=== PATIENT | female | born 1960 | race Caucasian/White ===

== ENCOUNTER 2016-11-21 15:40 | Observation (INO) | payer OTHER ==
[~2016-11-21] VITALS: Ht 160 cm; Wt 111.6 kg
[~2016-11-21 15:40] MED LIST: /MOXI40TA PO; ASPI325T PO; ASPI81TA85 PO; BABY81CH; LISI5TAB; METO50TA2 PO; NAPR250T; NICO21DI4; NICO21PAT EXT; NITR0.4S; OCEA0.65; OMEP20TA PO; OMEP40CA2 PO; PRED50TA PO; SIMV40TA2 PO; TYLE325T5 PO; VYTO10TA5 PO; ZETI10TA2 PO; [UNRECOGNIZED DRUG - CODE] PO; omeprazole PO
[2016-11-21] MEDS ORDERED: IPRATROPIUM 0.5MG/ALBUTEROL 2.5MG INH SOL UD 3ML (DUONEB)(J7620) As Ordered ONE (16:21)
[2016-11-21] MEDS ORDERED: methylPREDNISolone INJ 125 MG/2 ML VIAL (J2930) As Ordered ONE (16:34)
--- NOTE | 2016-11-21 16:37 | REP ---
Clinical: Cough . Comparison: 09/13/2015 . Technique: PA and lateral. Findings: The mediastinum and cardiac silhouette are normal. The lung salgado are clear and without acute consolidation, effusion, or pneumothorax. The skeletal structures are intact and normal. Impression: 1. No acute cardiopulmonary process. Signed by Manolo Higuera MD 11/21/2016 04:29 P
[2016-11-21] MEDS ORDERED: ALBUTEROL SULFATE 2.5 MG/0.5 ML INH NEB SOLN As Ordered ONE (16:45)
[2016-11-21 17:04] LABS: BASO % 0.6 % (0.0-1.0); EOS # 0.1 K/mm3 (0.0-0.50); EOS % 1.2 % (0.0-3.0); LARGE UNSTAINED CELL # 0.2 K/mm3 (0.0-0.4); LARGE UNSTAINED CELL % 2.9 % (0.0-4.0); LYMPH # 2.3 K/mm3 (1.5-4.5); LYMPH % 30.8 % (24.0-44.0); MEAN CORPUSCULAR HEMOGLOBIN 29.1 pg (27.0-33.0); MEAN CORPUSCULAR HGB CONC 33.9 g/dl (32.0-36.5); MONO # 0.4 K/mm3 (0.0-0.8); MONO % 6.3 % (0.0-5.0); NEUTROPHILS % 58.2 % (36.0-66.0); RED CELL DISTRIBUTION WIDTH 14.6 % (11.5-14.5); WHITE BLOOD COUNT 6.9 K/mm3 (4.0-10.0)
[2016-11-21 17:05] LABS: ANION GAP 10 MEQ/L (8-16); BLOOD UREA NITROGEN 10 MG/DL (7-18); CALCIUM LEVEL 8.9 MG/DL (8.5-10.1); CARBON DIOXIDE LEVEL 25 MEQ/L (21-32); CHLORIDE LEVEL 102 MEQ/L (98-107); CREATININE FOR GFR 0.79 MG/DL (0.55-1.02); GLOMERULAR FILTRATION RATE > 60.0 (>51); GLUCOSE, FASTING 104 MG/DL (70-105); POTASSIUM SERUM 3.4 MEQ/L (3.5-5.1); SODIUM LEVEL 137 MEQ/L (136-145)
[2016-11-21 17:36] LABS: PLATELET COUNT, AUTOMATED 49 k/mm3 (150-450)
[2016-11-21] MEDS ORDERED: TOPR50TA PO (18:08)
[2016-11-21] MEDS ORDERED: OMEP20CA3 PO (18:08)
[2016-11-21] MEDS ORDERED: BISACODYL 10 MG SUPP PR PRN (18:15)
[2016-11-21] MEDS ORDERED: ONDANSETRON 4MG/2ML VIAL (J2405) IV PRN (18:15)
[2016-11-21] MEDS ORDERED: POTASSIUM CHLORIDE 10 MEQ SR TABLET PO ONE (19:00)
[2016-11-21] MEDS ORDERED: FUROSEMIDE 40 MG/4 ML VIAL (J1940) IV ONE (19:00)
--- NOTE | 2016-11-21 19:47 | HPE ---
DATE OF ADMISSION: 11/21/2016 PRIMARY CARE PROVIDER: Nj Huff CHIEF COMPLAINT: Increasing shortness of breath for 1 week with coughing. PAST MEDICAL HISTORY: Chronic obstructive pulmonary disease (COPD). Coronary artery disease, status post stent. Mitral regurgitation. Left ventricular diastolic dysfunction. Obesity. Obstructive sleep apnea. Gastroesophageal reflux disease (GERD). Hyperlipidemia. HISTORY OF THE PRESENT ILLNESS: This is a 56-year-old female who has been off and on sick for the past 1 month. She started with cold-like symptoms on 10/16/2016 and was diagnosed with COPD exacerbation, received a week's treatment with steroids and Levaquin, improved a little bit. However, her symptoms came back again, went to see her blackener a second time and was given another course of levofloxacin and steroids, which she finished 2 weeks ago. She did improve for a few days; however, for the past week, the patient has been having worsening symptoms with increasing shortness of breath, cough, mostly dry and increasing difficulty in ambulation, so came to the emergency room for evaluation. In the emergency department (ED), the patient was treated with DuoNeb nebulizer, prednisone, Solu-Medrol. With that, her breathing seemed to improve, and she was ambulated. However, on ambulation, she became extremely tachycardic 130s to 140s and desaturated to 89% in room air, so the hospitalist service was consulted for admission for hypoxia and COPD exacerbation. PAST SURGICAL HISTORY: Sinus surgery. Knee surgery. Cardiac stents in 2008 with greater than 80% blockage. Bilateral foot surgeries. ALLERGIES: PENICILLIN. HOME MEDICATIONS: - aspirin 81 mg daily - Zetia 10 mg at bedtime - metoprolol succinate 50 mg at bedtime - omeprazole 20 mg at bedtime - simvastatin 40 mg at bedtime SOCIAL HISTORY: The patient is a currently every day smoker. Does not abuse alcohol or recreational drugs. REVIEW OF SYSTEMS: The patient denied any fever or chills. Does complain of palpitations. Denied any chest pain. Does complain of shortness of breath. Denied any gain in weight. Denied any abdominal pain, nausea, vomiting or diarrhea. She does have a dry cough. She does complain of some leg swelling. PHYSICAL EXAMINATION: VITAL SIGNS: Blood pressure 142/89, pulse 140, respiratory rate 18, temperature 99.2, pulse oximetry 89% in room air. GENERAL: The patient is awake, alert, oriented times three, sitting up in bed in no acute distress. HEENT: Normocephalic, atraumatic. Moist mucous membranes. Anicteric eyes. CHEST: Clear to auscultation. Overall poor air entry and distant breath sounds. CARDIOVASCULAR: S1, S2, regular, tachycardic. There is a high pitch systolic murmur present. There is gallop heard. No rub. ABDOMEN: Obese, soft, nontender. Bowel sounds present. EXTREMITIES: 1+ bipedal edema. LABORATORY DATA: WBC 6.9, hemoglobin 14, platelets 49. Sodium 137, potassium 3.4, chloride 102, bicarbonate 25, BUN 10, creatinine 0.7, glucose 104, calcium 8.9. Chest x-ray: No acute cardiopulmonary process. ASSESSMENT: This is a 56-year-old female admitted for chronic obstructive pulmonary disease (COPD) exacerbation. PLAN: For COPD exacerbation, will continue the patient on albuterol and ipratropium nebulizers. Will continue the patient on methylprednisolone. Will not give antibiotics at this point. The patient already received two courses of antibiotics recently and chest x-ray does not show any signs of infection. Mitral regurgitation. The patient has mild fluid overload. Will start the patient on Lasix IV 40 mg daily. Diastolic dysfunction, possible diastolic congestive heart failure. Will put the patient on Lasix and evaluate, and daily weights and intake and output. Coronary artery disease with history of cardiac stents. Will continue with beta heavenly, statin. Hyperlipidemia. Will continue with simvastatin and Zetia. Gastroesophageal reflux disease (GERD). Will continue with omeprazole. Deep vein thrombosis (DVT) prophylaxis with thromboembolism deterrents (TEDs) and sequentials. Will not use heparin as the patient is thrombocytopenic. Thrombocytopenia. Possibly related to antibiotics. The patient was taking levofloxacin over the past month, had two courses. Morbid obesity and obstructive sleep apnea (MELANY). Will continue with home continuous positive airway pressure (CPAP).
[2016-11-21] MEDS: BUDESONIDE 0.5 MG/2 ML INHALATION SUSPENSION INH SCH (20:00)
--- NOTE | 2016-11-21 20:03 | EDDOCDS ---
Physician Documentation [facility] Name: Neelam Cloud Age: 56 yrs Sex: Female : 1960 Arrival Date: 11/21/2016 Time: 15:40 Bed I7 / 29 Private MD: [place] [place] Disposition: 11/21/16 17:58 Hospitalization ordered by Macarena Bowen for Inpatient Admission. Preliminary diagnosis is Chronic obstructive pulmonary disease with (acute) exacerbation. - Bed requested for 4 [place]. - Status is Inpatient Admission. nn1 - Condition is Stable. - Problem is new. - Symptoms are unchanged. Historical: - Allergies: PENICILLINS; - Home Meds: 1. omeprazole 20 mg Oral cpDR 1 cap once daily 2. simvastatin 40 mg Oral tab 1 tab once daily 3. Zetia 10 mg Oral tab 1 tab once daily 4. aspirin 81 mg Oral tab 1 tab once daily 5. metoprolol tartrate 50 mg Oral tab 1 tab daily - PMHx: Depression; GERD; Hypercholesterolemia; Hypertension; [place]; COPD; - PSHx: D & C; Sinus Surgery; Knee surgery- Left; Coronary Stents; - Social history: Smoking status: Patient uses tobacco products, current every day smoker. No barriers to communication noted, The patient speaks fluent Divehi, Speaks appropriately for age. - Family history: No immediate family members are acutely ill. - : The pt / caregiver states he / she is not on anticoagulants. Home medication list is obtained from the patient. - Exposure Risk Screening:: None identified. ADMINISTRATIVE LIBRARY ASSISTANT: 11/21 15:50 LMP N/A - Post-menopause srm Vital Signs: 15:42 BP 142 / 89; Pulse 107; Resp 18 S; Temp 99.2(O); Pulse Ox 95% on R/A; Weight 108.86 kg gr2 / 240 lbs (R); Height 5 ft. 5 in. (165.10 cm) (R); Pain 2/10; 17:49 Pulse 140; Pulse Ox 89% ; jam1 18:10 BP 140 / 76; Pulse 128; Resp 20; Pulse Ox 90% on R/A; jjr 19:57 BP 122 / 70; Pulse 120; Resp 20; Temp 96.6(TE); Pulse Ox 93% on 2 lpm NC; nn1 15:42 Body Mass Index 39.94 (108.86 kg, 165.10 cm) gr2 18:10 2 liters NC applied jjr MDM: 16:19 -Blood Culture (Adults Only), peripheral from different site, or from device/port/PICC ck7 etc. if present ordered. 16:19 IV Saline Lock ordered. ck7 16:19 Solu-MEDROL 125 mg IVP once ordered. ck7 16:19 Albuterol-Ipratropium 3 ml Inhalation once ordered. ck7 16:19 Call Respiratory ordered. ck7 16:19 Obtain sample by nasopharyngeal swab ordered. ck7 16:20 CBC with Diff Ordered. EDMS 16:20 MED Profile Ordered. EDMS 16:20 -Influenza A&B Rapid Antigen - Nose Ordered. EDMS 16:21 Chest, 2 View (pa\E\lat) Ordered. EDMS 16:21 Call Respiratory complete. rs6 16:22 -Blood Culture (Adults Only), peripheral from different site, or from device/port/PICC rs6 etc. if present complete. 16:25 BLOOD CULTURES Ordered. EDMS 16:27 BLOOD CULTURES Ordered. EDMS 16:45 Albuterol 2.5 mg Nebulizer once x2 ordered. ck7 16:46 Financial registration complete. kf3 16:51 Chest, 2 View (pa\E\lat) Reviewed. ck7 17:26 [facility] Payment Agreement was scanned into [employer] and attached to record. kf3 17:41 CBC with Diff Reviewed. ck7 17:41 MED Profile Reviewed. ck7 17:41 -Influenza A&B Rapid Antigen - Nose Reviewed. ck7 17:43 Ambulate Patient [facility] Pulse Oximetry ordered. ck7 17:50 BED REQUEST+ADM ordered. EDMS 17:59 Recheck Vital Signs, perform reassessment and enter into [employer] ordered. ck7 18:07 Admission / Observation Status ordered. EDMS 18:07 REGULAR DIET ordered. EDMS 18:53 BRAIN NATIURETIC PEPTIDE Ordered. EDMS 18:58 ECG WITH READING ER PHYS+CARDIAG ordered. EDMS Administered Medications: 16:30 Drug: Albuterol-Ipratropium 3 ml [ipratropium-albuterol 0.5 mg-3 mg(2.5 mg base)/3 mL ac1 nebulization soln (3 mL)] Route: Inhalation; 16:38 Follow up: bs clear upper lobes, diminished lower lobes before tx. bs after tx, clear ac1 upper lobes, diminished lower lobes. 17:13 Follow up: bs clear bilat ac1 16:38 Drug: Solu-MEDROL 125 mg [Solu-Medrol 500 mg intravenous solution (125 mg)] Route: IVP; jjr Site: right antecubital; 16:48 Drug: Albuterol 2.5 mg [albuterol sulfate 2.5 mg/0.5 mL solution for nebulization (0.5 ac1 mL)] Route: Nebulizer; 16:54 Drug: Albuterol 2.5 mg [albuterol sulfate 2.5 mg/0.5 mL solution for nebulization (0.5 ac1 mL)] Route: Nebulizer; 16:54 Follow up: bs clear bilat before and after tx. ac1 Signatures: Dispatcher [employer] EDMS Jill Solitario, RN RN srm Fiddler, Didier, Reg Reg kf3 Flaca Hayward RN RN jjr Wang Brown, RPA-C RPA-Cck7 Katerin Washington, ACCOUNTS PAYABLE REPRESENTATIVE ACCOUNTS PAYABLE REPRESENTATIVE rs6 Isaac Graves,LAUREN RN nn1 Gorge Price, RN LAUREN Culver, Dalia RT ac1 The chart was reviewed and I authenticate all verbal orders and agree with the evaluation and treatment provided.Corrections: (The following items were deleted from the chart) 17:09 16:20 -BLOOD CULTURES+JULIA ordered. EDMS EDMS 18:36 15:50 Home Meds: Toprol XL 50 mg Oral Tb24 1 tab once daily; srm jjr Attachments: 17:26 [facility] Payment Agreement kf3 MTDD
--- NOTE | 2016-11-21 20:03 | EDDOCDS ---
Nurse's Notes [facility] Name: Neelam Cloud Age: 56 yrs Sex: Female : 1960 Arrival Date: 11/21/2016 Time: 15:40 Bed I7 / 29 Private MD: RISHI Mauro Diagnosis: Chronic obstructive pulmonary disease with (acute) exacerbation Presentation: 11/21 15:45 Presenting complaint: Patient states: sick since oct 16- has had 2 rounds antibiotic srm and prednisone and not getting any better. pt able to speak full sentence. coughing a lot and dizzy with a cough. Adult Sepsis Screening: The patient does not have new or worsening altered mentation. Patient's respiratory rate is less than 22. Systolic blood pressure is greater than 100. Patient has a qSOFA score of 0- Negative Sepsis Screen. Suicide/Homicide risk assessment- the patient denies having any suicidal and/or homicidal ideations and does not present with any other emotional, behavioral or mental health complaints. Status: has insurance- retired. Transition of care: patient was not received from another setting of care. 15:45 Acuity: ORALIA Level 3 srm 15:45 Method Of Arrival: Walkin/Carried/Asstd srm Triage Assessment: 15:50 General: Appears in no apparent distress, Behavior is appropriate for age, cooperative. srm Pain: Pain currently is 5 out of 10 on a pain scale. HIV screening NA for this visit Offered previously. Respiratory: Onset: The symptoms/episode began/occurred gradually. LAB NURSE: 15:50 LMP N/A - Post-menopause srm Historical: - Allergies: PENICILLINS; - Home Meds: 1. omeprazole 20 mg Oral cpDR 1 cap once daily 2. simvastatin 40 mg Oral tab 1 tab once daily 3. Zetia 10 mg Oral tab 1 tab once daily 4. aspirin 81 mg Oral tab 1 tab once daily 5. metoprolol tartrate 50 mg Oral tab 1 tab daily - PMHx: Depression; GERD; Hypercholesterolemia; Hypertension; [place]; COPD; - PSHx: D & C; Sinus Surgery; Knee surgery- Left; Coronary Stents; - Social history: Smoking status: Patient uses tobacco products, current every day smoker. No barriers to communication noted, The patient speaks fluent Macedonian, Speaks appropriately for age. - Family history: No immediate family members are acutely ill. - : The pt / caregiver states he / she is not on anticoagulants. Home medication list is obtained from the patient. - Exposure Risk Screening:: None identified. Screenin:51 Screening information is obtained from the patient. Fall risk: No risks identified. jjr Assistance ADL's: requires no assistance with activities of daily living. Abuse/DV Screen: The patient / caregiver reports he/she is: not in a situation that causes fear, pain or injury. Nutritional screening: No deficits noted. Advance Directives: There is no active DNR order. home support is adequate. Assessment: 16:50 General: Appears in no apparent distress, well nourished, well groomed, Behavior is jjr appropriate for age. Pain: Location: left scapular area and right scapular area. Cardiovascular: Chest pain is denied. Respiratory: Airway is patent Respiratory effort is even, unlabored, Respiratory pattern is regular, Breath sounds with rhonchi bilaterally. Reports cough that is persistent. Derm: No deficits noted. 18:10 General: Appears in no apparent distress. Neurological: No deficits noted. Respiratory: jjr Airway is patent Respiratory effort is even, unlabored, Respiratory pattern is regular. Derm: No deficits noted. 19:50 General: Appears in no apparent distress, comfortable, Behavior is appropriate for age, nn1 cooperative. General: Patient denies pain, reports discomfort when lying down due to SOB. Patient in no respiratory distress at this time. . Pain: Denies pain. Neurological: No deficits noted. Respiratory: Airway is patent Respiratory effort is even, unlabored, Respiratory pattern is regular. Derm: Skin is pink, warm & dry. 19:51 General: Patient ate dinner. . Cardiovascular: Rhythm is sinus tachycardia No ectopy. nn1 Vital Signs: 15:42 BP 142 / 89; Pulse 107; Resp 18 S; Temp 99.2(O); Pulse Ox 95% on R/A; Weight 108.86 kg gr2 (R); Height 5 ft. 5 in. (165.10 cm) (R); Pain 2/10; 17:49 Pulse 140; Pulse Ox 89% ; jam1 18:10 BP 140 / 76; Pulse 128; Resp 20; Pulse Ox 90% on R/A; jjr 19:57 BP 122 / 70; Pulse 120; Resp 20; Temp 96.6(TE); Pulse Ox 93% on 2 lpm NC; nn1 15:42 Body Mass Index 39.94 (108.86 kg, 165.10 cm) gr2 18:10 2 liters NC applied jr Vitals: 15:42 Log In Time: November 21, 2016 at 15:42. RN notified that patient meets Red Flag gr2 criteria. ED Course: 15:41 Patient visited by Lorri aHyward. gr2 15:41 Patient moved to Waiting gr2 15:42 [facility] is Private Physician. gr2 15:45 Patient visited by Lrori Hayward. gr2 15:46 Triage Initiated srm 15:51 Patient moved to Triage 2 srm 16:04 Wagn Brown R[facility]-C [facility] ck7 16:04 Bronson Clemens MD is Attending Physician. ck7 16:04 Patient visited by Wang Brown RPA-C. ck7 16:20 Patient moved to I srm 16:35 Patient visited by Wang Brown RPA-C. ck7 16:36 BLOOD CULTURES Sent. mk4 16:36 -Influenza A&B Rapid Antigen - Nose Sent. mk4 16:37 MED Profile Sent. mk4 16:37 CBC with Diff Sent. mk4 16:37 Inserted saline lock: 20 gauge in left antecubital area and blood collected. mk4 16:47 Chest, 2 View (pa\E\lat) Returned. EDMS 16:51 Patient visited by Flaca Hayward RN. jjr 16:51 The patient / caregiver is instructed regarding the plan of care and ED course. jjr 17:26 [facility] [place] Payment Agreement was scanned into [employer] and attached to record. kf3 17:31 Patient visited by Wang Brown RPA-C. ck7 17:57 Macarena Bowen is Hospitalizing Provider. ck7 18:10 Patient visited by Flaca Hayward RN. jjr 19:07 EKG done. (by ED staff). Reviewed by Macarena Bowen. mdr 19:08 Patient visited by Víctor Molina PCA. mdr 19:52 No procedures done that require assistance. nn1 19:52 O2 via nasal cannula \T\ 2L/min. nn1 Administered Medications: 16:30 Drug: Albuterol-Ipratropium 3 ml [ipratropium-albuterol 0.5 mg-3 mg(2.5 mg base)/3 mL ac1 nebulization soln (3 mL)] Route: Inhalation; 16:38 Follow up: bs clear upper lobes, diminished lower lobes before tx. bs after tx, clear ac1 upper lobes, diminished lower lobes. 17:13 Follow up: bs clear bilat ac1 16:38 Drug: Solu-MEDROL 125 mg [Solu-Medrol 500 mg intravenous solution (125 mg)] Route: IVP; jjr Site: right antecubital; 16:48 Drug: Albuterol 2.5 mg [albuterol sulfate 2.5 mg/0.5 mL solution for nebulization (0.5 ac1 mL)] Route: Nebulizer; 16:54 Drug: Albuterol 2.5 mg [albuterol sulfate 2.5 mg/0.5 mL solution for nebulization (0.5 ac1 mL)] Route: Nebulizer; 16:54 Follow up: bs clear bilat before and after tx. ac1 Intake: RT: 16:39 Initial Med Neb Given as ordered. Respiratory: Breath sounds are clear bilaterally. in ac1 right upper lobe, left upper lobe, left posterior upper lobe and right posterior upper lobe. Respiratory: Breath sounds are clear bilaterally. in right upper lobe, left upper lobe, left posterior upper lobe and right posterior upper lobe. 16:40 Respiratory: Breath sounds are diminished bilaterally. in right middle lobe, left lower ac1 lobe, right lower lobe, left posterior lower lobe, right posterior middle lobe and right posterior lower lobe. 16:48 Subsequent Med Neb Given as ordered. ac1 16:49 Respiratory: Breath sounds are coarse bilaterally. ac1 16:55 Subsequent Med Neb Given as ordered. ac1 17:17 Respiratory: Breath sounds are clear bilaterally. ac1 Order Results: Lab Order: CBC with Diff; SPEC'M 11/21/16 16:33 Test: WHITE BLOOD COUNT; Value: 6.9; Range: 4.0-10.0; Units: K/mm3; Status: F Test: RED BLOOD COUNT; Value: 4.81; Range: 4.00-5.40; Units: M/mm3; Status: F Test: HEMOGLOBIN; Value: 14.0; Range: 12.0-16.0; Units: g/dl; Status: F Test: HEMATOCRIT; Value: 41.4; Range: 36.0-47.0; Units: %; Status: F Test: MEAN CORPUSCULAR VOLUME; Value: 86.0; Range: 80.0-96.0; Units: fl; Status: F Test: MEAN CORPUSCULAR HEMOGLOBIN; Value: 29.1; Range: 27.0-33.0; Units: pg; Status: F Test: MEAN CORPUSCULAR HGB CONC; Value: 33.9; Range: 32.0-36.5; Units: g/dl; Status: F Test: RED CELL DISTRIBUTION WIDTH; Value: 14.6; Range: 11.5-14.5; Abnormal: Above high normal; Units: %; Status: F Test: PLATELET COUNT, AUTOMATED; Value: 49; Range: 150-450; Abnormal: Below low normal; Units: k/mm3; Status: F Test: NEUTROPHILS %; Value: 58.2; Range: 36.0-66.0; Units: %; Status: F Test: LYMPH %; Value: 30.8; Range: 24.0-44.0; Units: %; Status: F Test: MONO %; Value: 6.3; Range: 0.0-5.0; Abnormal: Above high normal; Units: %; Status: F Test: EOS %; Value: 1.2; Range: 0.0-3.0; Units: %; Status: F Test: BASO %; Value: 0.6; Range: 0.0-1.0; Units: %; Status: F Test: LARGE UNSTAINED CELL %; Value: 2.9; Range: 0.0-4.0; Units: %; Status: F Test: NEUTROPHILS #; Value: 4.0; Range: 1.8-7.7; Units: K/mm3; Status: F Test: LYMPH #; Value: 2.3; Range: 1.5-4.5; Units: K/mm3; Status: F Test: MONO #; Value: 0.4; Range: 0.0-0.8; Units: K/mm3; Status: F Test: EOS #; Value: 0.1; Range: 0.0-0.50; Units: K/mm3; Status: F Test: BASO #; Value: 0.0; Range: 0.0-0.2; Units: K/mm3; Status: F Test: LARGE UNSTAINED CELL #; Value: 0.2; Range: 0.0-0.4; Units: K/mm3; Status: F Lab Order: MED Profile; SPEC'M 11/21/16 16:33 Test: GLUCOSE, FASTING; Value: 104; Range: 70-105; Units: MG/DL; Status: F Test: BLOOD UREA NITROGEN; Value: 10; Range: 7-18; Units: MG/DL; Status: F Test: CREATININE FOR GFR; Value: 0.79; Range: 0.55-1.02; Units: MG/DL; Status: F Test: GLOMERULAR FILTRATION RATE; Value: > 60.0; Range: >51; Status: F Test: SODIUM LEVEL; Value: 137; Range: 136-145; Units: MEQ/L; Status: F Test: POTASSIUM SERUM; Value: 3.4; Range: 3.5-5.1; Abnormal: Below low normal; Units: MEQ/L; Status: F Test: CHLORIDE LEVEL; Value: 102; Range: 98-107; Units: MEQ/L; Status: F Test: CARBON DIOXIDE LEVEL; Value: 25; Range: 21-32; Units: MEQ/L; Status: F Test: ANION GAP; Value: 10; Range: 8-16; Units: MEQ/L; Status: F Test: CALCIUM LEVEL; Value: 8.9; Range: 8.5-10.1; Units: MG/DL; Status: F Test Note: ; Units are mL/min/1.73 m2 Chronic Kidney Disease Staging per NKF: Stage I & II GFR >=60 Normal to Mildly Decreased Stage III GFR 30-59 Moderately Decreased Stage IV GFR 15-29 Severely Decreased Stage V GFR <15 Very Little GFR Left ESRD GFR <15 on HAND COMPOSITOR Lab Order: -Influenza A&B Rapid Antigen - Nose; SPEC'M 11/21/16 16:33 Test: INFLUENZA A RAPID SCR by ICA; Value: INFLUENZA A RESULTS NEGATIVE; Status: F Test: INFLUENZA A RAPID SCR by ICA; Value: Comments:; Status: F Test: INFLUENZA B RAPID SCR by ICA; Value: INFLUENZA B RESULTS NEGATIVE; Status: F Test Note: ; The Influenza test is a direct rapid immunoassay for the qualitative detection of Influenza viral antigen. Cell culture (Viral Culture) testing should be considered to confirm NEGATIVE results and to assist in detecting other viruses that can provide similar clinical symptoms. Please contact the lab within 24 hours ([phone]) if confirmatory testing is desired. Lab Order: BRAIN NATIURETIC PEPTIDE; SPEC'M 11/21/16 18:51 Test: BRAIN NATRIURETIC PEPTIDE; Value: 225; Range: <100; Abnormal: Above high normal; Units: PG/ML; Status: F Radiology Order: Chest, 2 View (pa\E\lat) Test: Chest, 2 View (pa\E\lat) REASON FOR EXAMINATION: Cough; Clinical: Cough .; ; Comparison: 09/13/2015 .; ; Technique: PA and lateral.; ; Findings:; The mediastinum and cardiac silhouette are normal. The lung salgado are clear and; without acute consolidation, effusion, or pneumothorax. The skeletal structures; are intact and normal.; ; Impression:; 1. No acute cardiopulmonary process.; ; ; Signed by; Manolo Higuera MD 11/21/2016 04:29 P; Outcome: 17:58 Decision to Hospitalize by Provider. ck7 19:43 Admission hand-off: Report Faxed Fax receipt verified by Genna Licona RN . nn1 19:52 Discharge Assessment: Patient awake, alert and oriented x 3. No cognitive and/or nn1 functional deficits noted. Patient verbalized understanding of disposition instructions. patient administered narcotics - no. The following High Risk Discharge criteria are identified: None. Admitted to Med/Surg accompanied by tech, family with patient, via stretcher, with oxygen, with chart. Condition: stable. No special radiology studies were completed. Property :Personal belongings accompany Pt. 20:02 Patient left the ED. nn1 Signatures: Dispatcher [employer] EDMS Jill Solitario, RN RN Kaia Hardin, WILFREDO ELECTRO TECH jam1 Dalia Culver,RT RT ac1 Didier Grimes, Reg Reg kf3 Flaca Hayward, LAUREN RN Wang Layne, RPA-C RPA-Cck7 Lorri Hayward gr2 Fidelia Anderson RN RN mk4 Nunez, Nikkole, RN RN nn1 Víctor Molina PCA ELECTRO TECH mdr Corrections: (The following items were deleted from the chart) 18:36 15:50 Home Meds: Toprol XL 50 mg Oral Tb24 1 tab once daily; srm jjr MTDD
[2016-11-21 20:05] VITALS: BP 146/79
[2016-11-21] MEDS: METOPROLOL SUCC (TopROL XL) 50MG **XL** TAB PO SCH (20:40)
[2016-11-21] MEDS: OMEPRAZOLE 20 MG CAP PO SCH (20:40)
[2016-11-21] MEDS: SIMVASTATIN 40 MG TAB PO SCH (20:41)
[2016-11-21] MEDS: EZETIMIBE 10 MG TAB (ZETIA) PO SCH (20:41)
[2016-11-21] MEDS: SENOKOT S TAB PO SCH (20:41)
[2016-11-21] MEDS ORDERED: ASPIRIN 81 MG ENTERIC TAB PO SCH (21:00)
[2016-11-21] MEDS: IPRATROPIUM 0.5MG/ALBUTEROL 2.5MG INH SOL UD 3ML (DUONEB)(J7620) NEB SCH (21:05)
[2016-11-21 22:00] VITALS: BP 137/69
[2016-11-21] MEDS: methylPREDNISolone INJ 40 MG/1 ML VIAL (J2920) IV SCH (22:47)
[2016-11-22] MEDS: IPRATROPIUM 0.5MG/ALBUTEROL 2.5MG INH SOL UD 3ML (DUONEB)(J7620) NEB SCH ×4 (01:41→20:00)
[2016-11-22] MEDS: methylPREDNISolone INJ 40 MG/1 ML VIAL (J2920) IV SCH ×4 (03:34→21:32)
[2016-11-22 06:00] VITALS: BP 126/65
[2016-11-22 08:20] LABS: ALKALINE PHOSPHATASE 52 U/L (45-117); ALT/SGPT 36 U/L (12-78); ANION GAP 11 MEQ/L (8-16); AST/SGOT 21 U/L (15-37); BILIRUBIN,TOTAL 0.6 MG/DL (0.2-1.0); BLOOD UREA NITROGEN 12 MG/DL (7-18); CALCIUM LEVEL 8.4 MG/DL (8.5-10.1); CARBON DIOXIDE LEVEL 23 MEQ/L (21-32); CHLORIDE LEVEL 105 MEQ/L (98-107); CREATININE FOR GFR 0.86 MG/DL (0.55-1.02); GLOMERULAR FILTRATION RATE > 60.0 (>51); GLUCOSE, FASTING 180 MG/DL (70-105); MAGNESIUM LEVEL 2.2 MG/DL (1.8-2.4); POTASSIUM SERUM 4.2 MEQ/L (3.5-5.1); SODIUM LEVEL 139 MEQ/L (136-145); TOTAL PROTEIN 7.3 GM/DL (6.4-8.2)
[2016-11-22 08:29] LABS: MEAN CORPUSCULAR HEMOGLOBIN 28.7 pg (27.0-33.0); MEAN CORPUSCULAR VOLUME 86.9 fl (80.0-96.0); RED CELL DISTRIBUTION WIDTH 14.4 % (11.5-14.5)
[2016-11-22] MEDS: BUDESONIDE 0.5 MG/2 ML INHALATION SUSPENSION INH SCH ×2 (08:36→20:00)
[2016-11-22] MEDS: SENOKOT S TAB PO SCH ×2 (09:04→21:31)
[2016-11-22] MEDS: FUROSEMIDE 40 MG/4 ML VIAL (J1940) IV SCH (09:04)
[2016-11-22 09:42] LABS: PLATELET COUNT, AUTOMATED 55 k/mm3 (150-450)
[2016-11-22 09:43] LABS: PLTBLUE- EDTA FREE CALC 26 K/mm3 (172-450); PLTBLUE- EDTA FREE MACHINE 24 k/mm3 (172-450)
[2016-11-22 09:45] VITALS: BP 139/75
[2016-11-22 09:47] LABS: REASON FOR REVIEW PLATELET MORPHOLOGY
[2016-11-22 12:00] VITALS: BP 119/69
--- NOTE | 2016-11-22 13:28 | IPNPDOC ---
Date Seen The patient was seen on 11/22/16. Progress Note SUBJECTIVE: The patient tells me she is feeling better her breathing is more at ease she denies chest pain but she does describe some mild chest pressure tells me associated with sweating and episodes of lightheadedness with exertion. Of note she also tells me that her symptoms briefly improved over the last several weeks when she was on steroids and antibiotics we'll quickly recurred when they were discontinued. OBJECTIVE PHYSICAL EXAMINATION: VITAL SIGNS: Please see below. GENERAL: [She is a pleasant middle-aged obese female sitting on the edge of bed she does not appear to be any acute distress] HEENT: Pupils are equally round and reactive to light she has moist mucous membranes no appreciable elevation CVP CARDIOVASCULAR: S1-S2 regular. RESPIRATORY: Fairly clear at this time no appreciable wheeze prolonged expiratory phase but good air movement. ABDOMINAL: Obese bowel sounds present abdomen soft EXTREMITIES: Trace edema no clubbing or cyanosis LABORATORY DATA: Please see below. MICROBIOLOGY: Please see below. IMAGING: [No acute cardiopulmonary process] DVT prophylaxis ordered?: [I will start her on teds and sequentials no pharmacological agents secondary to thrombocytopenia] ASSESSMENT AND PLAN: This is a 56-year-old female with dyspnea. PROBLEMS: 1. dyspnea: The patient has been admitted with concern for decub stage COPD the patient follows Dr. Solano she has had several exacerbations and had 2 courses of Levaquin as well as prednisone tapers over the last several she is 2 months his symptoms briefly if briefly improved but then recurred her symptoms are associated with exertion she does associate some chest pressure diaphoresis at this time the patient is on nebulizer treatments she is mildly tachycardic switch her from DuoNeb to Xopenex and ipratropium, she is also on IV Solu- Medrol as well as Pulmicort. She does appear to be improving at this time. 2. Coronary artery disease: Patient tells me that she's had a cardiac cath in 2013 which was essentially unremarkable she was recently seen by Dr. Good for palpitations she recently had a stress test and a full evaluation at their office she tells me. Given her cardiac history of concern that her dyspnea on exertion may also have a anginal component of trace edema I will check an echocardiogram and we'll check a troponin if it does return positive for transfer to the progressive care unit consult cardiology and order an echocardiogram. She does appear to be mildly hypervolemic is start her on IV Lasix we'll continue. The patient is normally on aspirin but held secondary to fracture her thrombocytopenia she is on a statin and beta heavenly. 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 Dyslipidemia: Is on a statin as well as zetia. 4. Thrombocytopenia: The patient has is chronically however appears be more pronounced at this time I'll check a peripheral smear as well as an EDTA free tube given she has been on multiple courses of fluoroquinolones I agree with this may be secondary to her antibiotic use at this time I agree and see no indication for antibiotics we'll continue to trend her platelets there is no evidence of active bleeding at this time DISPOSITION: [We'll continue to monitor closely the patient still has an O2 requirement which she normally does not have at home at her baseline]. VS, I&O, 24H, Fishbone Vital Signs/I&O Vital Signs Date Time Temp Pulse Resp B/P Pulse Ox O2 Delivery O2 Flow Rate FiO2 11/22/16 12:00 97.2 91 18 119/69 92 Nasal Cannula 2.0 I&O- Last 24 Hours up to 6 AM 11/22/16 06:00 Intake Total 360 ml Output Total 2400 ml Balance -2040 ml Laboratory Data 24H LABS Laboratory Tests 2 11/21/16 16:33: Anion Gap 10, White Blood Count 6.9, Red Blood Count 4.81, Hemoglobin 14.0, Hematocrit 41.4, Mean Corpuscular Volume 86.0, Mean Corpuscular Hemoglobin 29.1 , Mean Corpuscular Hemoglobin Concent 33.9, Red Cell Distribution Width 14.6H, Platelet Count 49L, Neutrophils (%) (Auto) 58.2, Lymphocytes (%) (Auto) 30.8, Monocytes (%) (Auto) 6.3H, Eosinophils (%) (Auto) 1.2, Basophils (%) (Auto) 0.6 , Neutrophils # (Auto) 4.0, Lymphocytes # (Auto) 2.3, Monocytes # (Auto) 0.4, Eosinophils # (Auto) 0.1, Basophils # (Auto) 0.0, Blood Urea Nitrogen 10, Creatinine 0.79, Sodium Level 137, Potassium Level 3.4L, Chloride Level 102, Carbon Dioxide Level 25, Calcium Level 8.9, Glomerular Filtration Rate > 60.0, Large Unclassified Cells # 0.2, Large Unclassified Cells % 2.9 11/21/16 18:51: B-Type Natriuretic Peptide 225H 11/22/16 07:31: Platelet Count, EDTA Free 26*L 11/22/16 07:35: Anion Gap 11, Blood Urea Nitrogen 12, Creatinine 0.86, Sodium Level 139, Potassium Level 4.2#, Chloride Level 105, Carbon Dioxide Level 23, Calcium Level 8.4L, Glomerular Filtration Rate > 60.0, B-Type Natriuretic Peptide 488H, Aspartate Amino Transf (AST/SGOT) 21, Alanine Aminotransferase (ALT/SGPT) 36, Alkaline Phosphatase 52, Total Bilirubin 0.6, Total Protein 7.3, Albumin 3.0L, Albumin/Globulin Ratio 0.70L, Differential Pathologist's Review PLATELET MORPHOLOGY, Differential Slide Review Report, Magnesium Level 2.2, Peripheral Blood Smear Path Consult PERIPHERAL SMEAR, Troponin I 0.15H CBC/BMP Laboratory Tests 11/21/16 16:33 Calcium Level 8.9, Red Blood Count 4.81, Mean Corpuscular Volume 86.0, Mean Corpuscular Hemoglobin 29.1, Mean Corpuscular Hemoglobin Concent 33.9, Red Cell Distribution Width 14.6 H, Neutrophils (%) (Auto) 58.2, Lymphocytes (%) (Auto) 30.8, Monocytes (%) (Auto) 6.3 H, Eosinophils (%) (Auto) 1.2, Basophils (%) ( Auto) 0.6, Neutrophils # (Auto) 4.0, Lymphocytes # (Auto) 2.3, Monocytes # (Auto ) 0.4, Eosinophils # (Auto) 0.1, Basophils # (Auto) 0.0 11/22/16 07:35 Calcium Level 8.4 L, Red Blood Count 5.06, Mean Corpuscular Volume 86.9, Mean Corpuscular Hemoglobin 28.7, Mean Corpuscular Hemoglobin Concent 33.0, Red Cell Distribution Width 14.4, Aspartate Amino Transf (AST/SGOT) 21, Alanine Aminotransferase (ALT/SGPT) 36, Alkaline Phosphatase 52, Total Bilirubin 0.6, Total Protein 7.3, Albumin 3.0 L Microbiology Microbiology 11/21/16 Blood Culture, Received Pending 2/23/17 Blood Culture, Received Pending 11/21/16 Influenza Virus Type A Antigen - Final, Complete 11/21/16 Influenza Virus Type B Antigen - Final, Complete VANI FRANCE MD Nov 22, 2016 13:28
--- NOTE | 2016-11-22 15:18 | ECGEPIP ---
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
[2016-11-22 16:00] VITALS: BP 135/66
--- NOTE | 2016-11-22 16:38 | ECGEPIP ---
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 Leftward axis, presence of nonspecific ST-T abnormalities elsewhere. No significant change compared With 11/21/2016. Electronically Signed On 11-22-2016 16:37:42 EST by Noel Lomeli
[2016-11-22 19:56] VITALS: BP 132/60
[2016-11-22] MEDS ORDERED: ISOVUE-370 76% 100ML VIAL (Q9967) As Ordered ONE (20:50)
[2016-11-22 21:29] VITALS: BP 143/74
[2016-11-22] MEDS: METOPROLOL SUCC (TopROL XL) 50MG **XL** TAB PO SCH (21:33)
[2016-11-22] MEDS: SIMVASTATIN 40 MG TAB PO SCH (21:33)
[2016-11-22] MEDS: EZETIMIBE 10 MG TAB (ZETIA) PO SCH (21:33)
[2016-11-22] MEDS: OMEPRAZOLE 20 MG CAP PO SCH (21:33)
--- NOTE | 2016-11-22 21:40 | REPUSA ---
CT angiogram of the chest Clinical statement: shortness of breath. Technique: Multiple axial CT images were obtained from the thoracic inlet through the upper abdomen a fter a bolus administration of nonionic intravenous contrast. Coronal and sagittal reconstructions we re also obtained. No comparison is available. Findings: The pulmonary arteries are well-opacified with contrast, with no intraluminal filling defec ts to suggest embolism. The thoracic aorta is unremarkable. Thyroid gland is within normal limits. Th ere is no thoracic lymphadenopathy. There are no pericardial or pleural effusions. The lungs are keena r. Limited imaging of the upper abdomen is unremarkable. There are no suspicious osseous lesions. Impression: Unremarkable CT examination of the chest. No evidence of pulmonary embolism.
[2016-11-23] VITALS (7 sets, daily range): BP systolic 115–131; BP diastolic 64–73
[2016-11-23] MEDS: IPRATROPIUM 0.5MG/ALBUTEROL 2.5MG INH SOL UD 3ML (DUONEB)(J7620) NEB SCH ×4 (01:21→20:10)
--- NOTE | 2016-11-23 02:35 | CR ---
DATE OF CONSULTATION: 11/22/2016 REFERRING PROVIDER: Dr. Candice Remy REASON FOR CONSULTATION: Abnormal serum troponin. HISTORY OF PRESENT ILLNESS: 56-year-old woman with a history of premature coronary artery disease. In 2008, she had percutaneous transluminal coronary angioplasty (PTCA) to the right coronary artery (RCA). Earlier this year, she was revaluated by her primary destination imagination coordinator, Dr. Good, because of increasing shortness of breath and she underwent a nuclear stress test, it was negative for ischemia or infarction, LVEF was normal. Last fall, she had an echocardiogram that revealed a normal global left ventricular systolic function estimated at 60%-65% with mild aortic stenosis, mild mitral stenosis. Last month, she was treated twice with bronchodilators, corticosteroids, and oral antibiotics, but she has not been doing better. Her symptoms initially improved briefly, but would get worse. Because she was not getting better and her shortness of breath was getting worse, she came to the hospital for further evaluation. She was treated in the emergency room (ER) last night with a combination of DuoNebs, Solu-Medrol, and her symptoms were improved at rest, but while walking, she became hypoxemic and tachycardic. She was admitted for further management and monitoring. This morning, she was found to have an abnormal serum troponin and she was transferred to progressive care unit (PCU) for further management and monitoring. Her serum troponin was reported to be 0.15. Cardiology consult was called. When I saw Mrs. Neelam Cloud, she was sitting in the bed in no acute distress at rest and a couple members of her family were at bedside. She denies any chest pain, but continues to be short of breath with activities. She denies any fever or chills. Her vital signs upon arrival at the ER revealed a blood pressure of 142/89 with a pulse of 107, respirations 18, and her temperature was 99.2 degrees Fahrenheit with an oxygen saturation of 95% on room air. Last vital signs on the floor revealed a blood pressure of 132/60 with a pulse of 97, respirations 18, temperature 95.89 degrees Fahrenheit, and her oxygen saturation is 95% on two liters nasal cannula. She has a cough, but no hemoptysis. She has minimal pedal edema that has been stable. She has no nausea, vomiting, diarrhea, melena, or hematemesis. She has no focal manifestation. She denies any dysuria, polyuria, or hematuria. PAST MEDICAL HISTORY: She has a past medical history positive for coronary artery disease with history of PTCA to the RCA with a drug-eluting stent in May 2009, hypertension, hyperlipidemia, valvular heart disease with mild aortic stenosis and mild mitral stenosis, obesity and sleep apnea for which she has been on a bilevel positive airway pressure (BiPAP) machine, gastroesophageal reflux disease (GERD), and she has been smoking until this hospitalization. She denies any history of kidney disease, asthma, and she stated that her blood sugar has been elevated. There is no history of cerebrovascular accident (CVA), cardiomyopathy, or sudden cardiac . PAST SURGICAL HISTORY: Positive for dilatation and curettage (D C), surgery done on her sinuses and bilateral foot surgeries. FAMILY HISTORY: Strongly positive for coronary artery disease including premature coronary artery disease in her father. SOCIAL HISTORY: Patient lives with her family and she has been smoking until this hospitalization. She stated that she will not go back to smoking. She denies any ETOH abuse or illicit drugs. ALLERGIES: PENICILLIN and adverse reaction described as hives. ADVANCED DIRECTIVES: Patient is a full code. PHYSICAL EXAMINATION: On physical examination, the patient is alert and oriented, with mild shortness of breath at rest. Please refer to vital signs as mentioned above. HEENT: Atraumatic. NECK: Supple, no jugular venous distention (JVD) or carotid bruits. LUNGS: Did not reveal any wheezing or crackles. HEART: The heart examination revealed normal S1 and S2 without gallops. The point of maximum impulse (PMI) is displaced inferiorly and laterally. There is no rub. There is a systolic murmur grade 2/6 over the precordium louder at the base/aortic area with some radiation to the neck. ABDOMEN: Unremarkable. EXTREMITIES: Revealed trace bilateral ankle edema. NEUROLOGICAL: Grossly is negative for focal deficit. LABS: CBC revealed a WBC of 5.0, hemoglobin 14.5, hematocrit 44.0, and platelets of 55,000. On admission, 11/21/2016, CBC revealed a WBC of 6.9, hemoglobin 14.0, hematocrit 41.1, and platelets 49,000. BMP done today revealed a sodium of 139, potassium 4.2, chloride 105, CO2 23, BUN 12, creatinine 0.86, GFR more than 60, fasting glucose 180, calcium 8.4. Liver enzymes revealed a total bilirubin of 0.6, AST 21, ALT 36, alkaline phosphatase 52, total protein 7.3, albumin 3.0. Serum BNP is 225. Serum magnesium is 2.2. Troponin is 0.15, 0.10, an 0.07 respectively #1 up to #3. Repeat serum BNP today was 488. BMP on admission revealed a sodium of 137, potassium 3.4, chloride 102, CO2 25, BUN 10, creatinine 0.79, GFR more than 60, fasting glucose 104, and calcium 8.9. Chest x-ray was reviewed and revealed no acute cardiopulmonary process. Electrocardiogram was reviewed and revealed normal sinus rhythm with nonspecific ST/T abnormalities, biatrial abnormality and findings consistent with prior anteroseptal infarct, and it seems there are no remarkable changes from last EKG done in the office on 10/01/2016. There is mild interventricular conduction delay (IVCD). A pharmacological nuclear stress test done on 10/11/2016, was negative for ischemia or infarction, and the calculated left ventricular ejection fraction (LVEF) was 59%. There was no arrhythmia. Patient had no chest pain. An echocardiogram done on 08/05/2016, revealed a normal LVEF, mildly enlarged left atrium with mild concentric left ventricular hypertrophy, mild mitral stenosis, mild aortic stenosis. IMPRESSION: Shortness of breath in this 56-year-old woman with premature coronary artery disease. Serum troponin was minimally abnormal and serum BNP is slightly elevated. She denies any chest pain consistent with angina. She had recent cardiac workup done and it was negative. Echocardiogram done today and it will be reviewed then further recommendations will be given. On physical examination, her blood pressure is under control and there is no wheezing or crackles that may be related to exacerbation of chronic obstructive pulmonary disease (COPD) or congestive heart failure. She has not been having any fever and chest x-ray is negative. Her symptoms are not quite typical of underlying cardiac condition, but cannot be entirely ruled out. I will proceed with a chest CT looking for pulmonary embolism then further recommendation will be given. She had an echocardiogram done earlier today, it will be reviewed. I have noticed that she is thrombocytopenic, etiology is not quite clear. This may be related to a viral infection. She will need to be monitored because she stated that her mother from a blood dyscrasia. Her aspirin was discontinued and I agree. It was a pleasure to participate in the care of Mrs. Neelam Cloud for her underlying cardiac condition. I will continue to monitor her along with you while in the hospital. Please do not hesitate to call if any questions.
[2016-11-23] MEDS: methylPREDNISolone INJ 40 MG/1 ML VIAL (J2920) IV SCH ×5 (04:16→21:02)
[2016-11-23 05:17] LABS: MEAN CORPUSCULAR HEMOGLOBIN 28.9 pg (27.0-33.0); MEAN CORPUSCULAR HGB CONC 33.7 g/dl (32.0-36.5); MEAN CORPUSCULAR VOLUME 85.8 fl (80.0-96.0); RED CELL DISTRIBUTION WIDTH 14.5 % (11.5-14.5); WHITE BLOOD COUNT 17.9 K/mm3 (4.0-10.0)
[2016-11-23 05:28] LABS: ANION GAP 8 MEQ/L (8-16); BLOOD UREA NITROGEN 13 MG/DL (7-18); CALCIUM LEVEL 8.6 MG/DL (8.5-10.1); CARBON DIOXIDE LEVEL 28 MEQ/L (21-32); CHLORIDE LEVEL 104 MEQ/L (98-107); CREATININE FOR GFR 0.71 MG/DL (0.55-1.02); GLOMERULAR FILTRATION RATE > 60.0 (>51); GLUCOSE, FASTING 223 MG/DL (70-105); POTASSIUM SERUM 4.1 MEQ/L (3.5-5.1); SODIUM LEVEL 140 MEQ/L (136-145)
[2016-11-23] MEDS: BUDESONIDE 0.5 MG/2 ML INHALATION SUSPENSION INH SCH ×2 (08:19→20:10)
[2016-11-23] MEDS: FUROSEMIDE 40 MG/4 ML VIAL (J1940) IV SCH (08:30)
[2016-11-23] MEDS: SENOKOT S TAB PO SCH ×2 (08:30→20:59)
[2016-11-23] MEDS ORDERED: INFLUENZA QUADRIVALENT PF VACCINE 0.5ML SYRINGE/VIAL (90686) IM SCH (09:00)
--- NOTE | 2016-11-23 10:27 | IPNPDOC ---
Date Seen The patient was seen on 11/23/16. Progress Note SUBJECTIVE: The patient tells me she is feeling well, she denies SOBt this time , tells me she gets it only with exertion now. She feels light headed when in a coughing fit but not otherwise. OBJECTIVE PHYSICAL EXAMINATION: GEN: She is a pleasant middle-aged obese female sitting on the edge of bed she does not appear to be any acute distress VITAL SIGNS: Please see below HEENT: Pupils are equally round and reactive to light she has moist mucous membranes no appreciable elevation CVP CARDIOVASCULAR: S1-S2 regular. RESPIRATORY: Fairly clear at this time no appreciable wheeze prolonged expiratory phase but good air movement. ABDOMINAL: Obese bowel sounds present abdomen soft EXTREMITIES: no edema no clubbing or cyanosis LABORATORY DATA: Please see below. MICROBIOLOGY: Please see below. IMAGING: CXR No acute cardiopulmonary process CTA: Unremarkable CT examination of the chest. No evidence of pulmonary embolism. DVT prophylaxis ordered?: teds and sequentials no pharmacological agents secondary to thrombocytopenia ASSESSMENT AND PLAN: This is a 56-year-old female with dyspnea. PROBLEMS: 1. dyspnea: The patient has been admitted with concern for decompensated COPD the patient follows with Dr. Solano she has had several exacerbations and had 2 courses of Levaquin as well as prednisone tapers over the last several she is 2 months her symptoms briefly if briefly improved but then recurred her symptoms are associated with exertion she does associate some chest pressure diaphoresis she is improving, she does not appear to require O2 at rest anymore, will check an ambulating O2 sat. 2. Coronary artery disease: Dr. Hoang has seen the patient, she had a CTA that did not reveal any PE, she had an equivocal troponin. Dr Hoang will review her echo. His help is greatly appreciated. ASA held 2' to thrombocytopenia, she is on a betablocker and a statin 3. Dyslipidemia: Is on a statin as well as zetia. 4. Thrombocytopenia: The patient has this chronically however appears be more pronounced at this time given she has been on multiple courses of fluoroquinolones I agree with this may be secondary to her antibiotic use at this time, her platelets appear to be coming up at this time, will simlpy monitor. DISPOSITION: We'll continue to monitor closely the patient still has some O2 requirement which she normally does not have at home at her baseline, will con' t to monitor. Improving. VS, I&O, 24H, Barb Vital Signs/I&O Vital Signs Date Time Temp Pulse Resp B/P Pulse Ox O2 Delivery O2 Flow Rate FiO2 11/23/16 08:00 97.6 74 19 121/67 95 Room Air 11/23/16 07:55 2.0 I&O- Last 24 Hours up to 6 AM 11/23/16 06:00 Intake Total 2180 ml Output Total 3600 ml Balance -1420 ml Laboratory Data 24H LABS Laboratory Tests 2 11/22/16 13:22: Troponin I 0.10# 11/22/16 19:22: Troponin I 0.07# 11/23/16 01:27: Troponin I 0.06 11/23/16 04:43: Anion Gap 8, B-Type Natriuretic Peptide 464H, Blood Urea Nitrogen 13, Creatinine 0.71, Sodium Level 140, Potassium Level 4.1, Chloride Level 104, Carbon Dioxide Level 28, Calcium Level 8.6, Glomerular Filtration Rate > 60.0 CBC/BMP Laboratory Tests 11/23/16 04:43 Calcium Level 8.6, Red Blood Count 4.70, Mean Corpuscular Volume 85.8, Mean Corpuscular Hemoglobin 28.9, Mean Corpuscular Hemoglobin Concent 33.7, Red Cell Distribution Width 14.5 Microbiology Microbiology 11/21/16 Blood Culture - Preliminary, Resulted No growth after 24 hours . All specim... 11/21/16 Blood Culture - Preliminary, Resulted No growth after 24 hours . All specim... 11/21/16 Influenza Virus Type A Antigen - Final, Complete 11/21/16 Influenza Virus Type B Antigen - Final, Complete VANI FRANCE MD Nov 23, 2016 10:27
--- NOTE | 2016-11-23 12:37 | ECHO ---
DATE OF PROCEDURE: 11/22/2016 REFERRING PHYSICIAN: Candice Remy MD PATIENT LOCATION: 3211 REASON FOR ECHOCARDIOGRAM: Shortness of breath. 2D MEASUREMENTS: IVS: 1.1 cm LV: 4.5 cm LVPW: 1.0 cm LA: 4.5 cm Aorta: 2.8 cm IVC: 2.2 cm DOPPLER MEASUREMENTS: Peak velocity across the aortic valve: 2.4 m/s Peak velocity across the LVOT: 2.0 m/s Peak gradient across the aortic valve 22 mmHg. Mean gradient across the aortic valve 30 mmHg. Mitral E: 1.4, Mitral A: 1.6, with a ratio of 0.9. Peak gradient across the mitral valve 90 mmHg. Mean gradient across the mitral valve 9 mmHg. Maximum tricuspid valve velocity: 2.2 m/s 2D COMMENTS: 1. Technically limited study due to poor acoustic window secondary to body habitus. 2. The left ventricular size is normal as well as left ventricular wall thickness. The estimated global left ventricular systolic ejection fraction is 60%. 3. Mildly enlarged left atrium. Normal right atrium and right ventricle. 4. The atrial septum appeared to be normal without evidence of defect or shunt. 5. Normal aortic root. 5. No pericardial effusion seen. 6. Mildly calcified aortic valve with mildly restricted leaflet motion. Moderately calcified mitral annulus, leaflet excursion was not well visualized. Normal tricuspid valve and pulmonic valve. The proximal pulmonary artery branches appeared to be normal in limited views. 7. The inferior vena cava was mildly enlarged, central venous pressure is probably elevated. DOPPLER: It detects trace to mild aortic regurgitation, mild to moderate mitral regurgitation, and trace tricuspid regurgitation. The calculated pulmonary artery systolic pressure was normal, abnormal relaxation pattern was noted across the mitral valve leaflets as well as the mitral valve annulus consistent with a delayed relaxation. IMPRESSION: 1. Normal global left ventricular systolic function. There are some features of left ventricular diastolic dysfunction, grade 1. 2. Aortic valve sclerosis with trace to mild aortic regurgitation and probably mild aortic stenosis. 3. Mitral annulus calcification with mild to moderate mitral regurgitation and probably moderate calcific mitral stenosis. The left atrium is mildly enlarged. 4. Trace tricuspid regurgitation with a normal calculated pulmonary artery systolic pressure. 5. There are some features of elevated central venous pressure.
[2016-11-23] MEDS ORDERED: METOPROLOL TART 50 MG TAB PO ONE (14:30)
[2016-11-23] MEDS: SIMVASTATIN 40 MG TAB PO SCH (20:58)
[2016-11-23] MEDS: OMEPRAZOLE 20 MG CAP PO SCH (20:59)
[2016-11-23] MEDS: EZETIMIBE 10 MG TAB (ZETIA) PO SCH (20:59)
[2016-11-23] MEDS ORDERED: METOPROLOL SUCC (TopROL XL) 100MG *XL* TAB PO SCH (21:00)
--- NOTE | 2016-11-23 21:03 | EDDOCDS ---
Nurse's Notes [facility] Name: Neelam Cloud Age: 56 yrs Sex: Female : 1960 Arrival Date: 11/21/2016 Time: 15:40 Bed I7 / 29 Private MD: RISHI Mauro Diagnosis: Chronic obstructive pulmonary disease with (acute) exacerbation Presentation: 11/21 15:45 Presenting complaint: Patient states: sick since oct 16- has had 2 rounds antibiotic srm and prednisone and not getting any better. pt able to speak full sentence. coughing a lot and dizzy with a cough. Adult Sepsis Screening: The patient does not have new or worsening altered mentation. Patient's respiratory rate is less than 22. Systolic blood pressure is greater than 100. Patient has a qSOFA score of 0- Negative Sepsis Screen. Suicide/Homicide risk assessment- the patient denies having any suicidal and/or homicidal ideations and does not present with any other emotional, behavioral or mental health complaints. Status: has insurance- retired. Transition of care: patient was not received from another setting of care. 15:45 Acuity: ORALIA Level 3 srm 15:45 Method Of Arrival: Walkin/Carried/Asstd srm Triage Assessment: 15:50 General: Appears in no apparent distress, Behavior is appropriate for age, cooperative. srm Pain: Pain currently is 5 out of 10 on a pain scale. HIV screening NA for this visit Offered previously. Respiratory: Onset: The symptoms/episode began/occurred gradually. 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 omeprazole 20 mg Oral cpDR 1 cap once daily 2. simvastatin 40 mg Oral tab 1 tab once daily 3. Zetia 10 mg Oral tab 1 tab once daily 4. aspirin 81 mg Oral tab 1 tab once daily 5. metoprolol tartrate 50 mg Oral tab 1 tab daily - PMHx: Depression; GERD; Hypercholesterolemia; Hypertension; [place]; COPD; - PSHx: D & C; Sinus Surgery; Knee surgery- Left; Coronary Stents; - Social history: Smoking status: Patient uses tobacco products, current every day smoker. No barriers to communication noted, The patient speaks fluent Hungarian, Speaks appropriately for age. - Family history: No immediate family members are acutely ill. - : The pt / caregiver states he / she is not on anticoagulants. Home medication list is obtained from the patient. - Exposure Risk Screening:: None identified. Screenin:51 Screening information is obtained from the patient. Fall risk: No risks identified. jjr Assistance ADL's: requires no assistance with activities of daily living. Abuse/DV Screen: The patient / caregiver reports he/she is: not in a situation that causes fear, pain or injury. Nutritional screening: No deficits noted. Advance Directives: There is no active DNR order. home support is adequate. Assessment: 16:50 General: Appears in no apparent distress, well nourished, well groomed, Behavior is jjr appropriate for age. Pain: Location: left scapular area and right scapular area. Cardiovascular: Chest pain is denied. Respiratory: Airway is patent Respiratory effort is even, unlabored, Respiratory pattern is regular, Breath sounds with rhonchi bilaterally. Reports cough that is persistent. Derm: No deficits noted. 18:10 General: Appears in no apparent distress. Neurological: No deficits noted. Respiratory: jjr Airway is patent Respiratory effort is even, unlabored, Respiratory pattern is regular. Derm: No deficits noted. 19:50 General: Appears in no apparent distress, comfortable, Behavior is appropriate for age, nn1 cooperative. General: Patient denies pain, reports discomfort when lying down due to SOB. Patient in no respiratory distress at this time. . Pain: Denies pain. Neurological: No deficits noted. Respiratory: Airway is patent Respiratory effort is even, unlabored, Respiratory pattern is regular. Derm: Skin is pink, warm & dry. 19:51 General: Patient ate dinner. . Cardiovascular: Rhythm is sinus tachycardia No ectopy. nn1 Vital Signs: 15:42 BP 142 / 89; Pulse 107; Resp 18 S; Temp 99.2(O); Pulse Ox 95% on R/A; Weight 108.86 kg gr2 (R); Height 5 ft. 5 in. (165.10 cm) (R); Pain 2/10; 17:49 Pulse 140; Pulse Ox 89% ; jam1 18:10 BP 140 / 76; Pulse 128; Resp 20; Pulse Ox 90% on R/A; jjr 19:57 BP 122 / 70; Pulse 120; Resp 20; Temp 96.6(TE); Pulse Ox 93% on 2 lpm NC; nn1 15:42 Body Mass Index 39.94 (108.86 kg, 165.10 cm) gr2 18:10 2 liters NC applied jr Vitals: 15:42 Log In Time: November 21, 2016 at 15:42. RN notified that patient meets Red Flag gr2 criteria. ED Course: 15:41 Patient visited by Lorri Hayward. gr2 15:41 Patient moved to Waiting gr2 15:42 [place] [facility] is Private Physician. gr2 15:45 Patient visited by Lorri Hayward. gr2 15:46 Triage Initiated srm 15:51 Patient moved to Triage 2 srm 16:04 Wang Brown [facility]-C [facility] ck7 16:04 Bronson Clemens MD is Attending Physician. ck7 16:04 Patient visited by Wang Brown RPA-C. ck7 16:20 Patient moved to I srm 16:35 Patient visited by Wang Brown RPA-C. ck7 16:36 BLOOD CULTURES Sent. mk4 16:36 -Influenza A&B Rapid Antigen - Nose Sent. mk4 16:37 MED Profile Sent. mk4 16:37 CBC with Diff Sent. mk4 16:37 Inserted saline lock: 20 gauge in left antecubital area and blood collected. mk4 16:47 Chest, 2 View (pa\E\lat) Returned. EDMS 16:51 Patient visited by Flaca Hayward RN. jjr 16:51 The patient / caregiver is instructed regarding the plan of care and ED course. jjr 17:26 [place] [place] Agreement was scanned into [employer] and attached to record. kf3 17:31 Patient visited by Wang Brown RPA-C. ck7 17:57 Macarena Bowen is Hospitalizing Provider. ck7 18:10 Patient visited by Flaca Hayward RN. jjr 19:07 EKG done. (by ED staff). Reviewed by Macarena Bowen. mdr 19:08 Patient visited by Víctor Molina PCA. mdr 19:52 No procedures done that require assistance. nn1 19:52 O2 via nasal cannula \T\ 2L/min. nn1 02/24 18:14 T-Sheet-- Draft Copy was scanned into [employer] and attached to record. klr Administered Medications: 11/21 16:30 Drug: Albuterol-Ipratropium 3 ml [ipratropium-albuterol 0.5 mg-3 mg(2.5 mg base)/3 mL ac1 nebulization soln (3 mL)] Route: Inhalation; 16:38 Follow up: bs clear upper lobes, diminished lower lobes before tx. bs after tx, clear ac1 upper lobes, diminished lower lobes. 17:13 Follow up: bs clear bilat ac1 16:38 Drug: Solu-MEDROL 125 mg [Solu-Medrol 500 mg intravenous solution (125 mg)] Route: IVP; jjr Site: right antecubital; 16:48 Drug: Albuterol 2.5 mg [albuterol sulfate 2.5 mg/0.5 mL solution for nebulization (0.5 ac1 mL)] Route: Nebulizer; 16:54 Drug: Albuterol 2.5 mg [albuterol sulfate 2.5 mg/0.5 mL solution for nebulization (0.5 ac1 mL)] Route: Nebulizer; 16:54 Follow up: bs clear bilat before and after tx. ac1 Intake: RT: 16:39 Initial Med Neb Given as ordered. Respiratory: Breath sounds are clear bilaterally. in ac1 right upper lobe, left upper lobe, left posterior upper lobe and right posterior upper lobe. Respiratory: Breath sounds are clear bilaterally. in right upper lobe, left upper lobe, left posterior upper lobe and right posterior upper lobe. 16:40 Respiratory: Breath sounds are diminished bilaterally. in right middle lobe, left lower ac1 lobe, right lower lobe, left posterior lower lobe, right posterior middle lobe and right posterior lower lobe. 16:48 Subsequent Med Neb Given as ordered. ac1 16:49 Respiratory: Breath sounds are coarse bilaterally. ac1 16:55 Subsequent Med Neb Given as ordered. ac1 17:17 Respiratory: Breath sounds are clear bilaterally. ac1 Order Results: Lab Order: CBC with Diff; SPEC'M 11/21/16 16:33 Test: WHITE BLOOD COUNT; Value: 6.9; Range: 4.0-10.0; Units: K/mm3; Status: F Test: RED BLOOD COUNT; Value: 4.81; Range: 4.00-5.40; Units: M/mm3; Status: F Test: HEMOGLOBIN; Value: 14.0; Range: 12.0-16.0; Units: g/dl; Status: F Test: HEMATOCRIT; Value: 41.4; Range: 36.0-47.0; Units: %; Status: F Test: MEAN CORPUSCULAR VOLUME; Value: 86.0; Range: 80.0-96.0; Units: fl; Status: F Test: MEAN CORPUSCULAR HEMOGLOBIN; Value: 29.1; Range: 27.0-33.0; Units: pg; Status: F Test: MEAN CORPUSCULAR HGB CONC; Value: 33.9; Range: 32.0-36.5; Units: g/dl; Status: F Test: RED CELL DISTRIBUTION WIDTH; Value: 14.6; Range: 11.5-14.5; Abnormal: Above high normal; Units: %; Status: F Test: PLATELET COUNT, AUTOMATED; Value: 49; Range: 150-450; Abnormal: Below low normal; Units: k/mm3; Status: F Test: NEUTROPHILS %; Value: 58.2; Range: 36.0-66.0; Units: %; Status: F Test: LYMPH %; Value: 30.8; Range: 24.0-44.0; Units: %; Status: F Test: MONO %; Value: 6.3; Range: 0.0-5.0; Abnormal: Above high normal; Units: %; Status: F Test: EOS %; Value: 1.2; Range: 0.0-3.0; Units: %; Status: F Test: BASO %; Value: 0.6; Range: 0.0-1.0; Units: %; Status: F Test: LARGE UNSTAINED CELL %; Value: 2.9; Range: 0.0-4.0; Units: %; Status: F Test: NEUTROPHILS #; Value: 4.0; Range: 1.8-7.7; Units: K/mm3; Status: F Test: LYMPH #; Value: 2.3; Range: 1.5-4.5; Units: K/mm3; Status: F Test: MONO #; Value: 0.4; Range: 0.0-0.8; Units: K/mm3; Status: F Test: EOS #; Value: 0.1; Range: 0.0-0.50; Units: K/mm3; Status: F Test: BASO #; Value: 0.0; Range: 0.0-0.2; Units: K/mm3; Status: F Test: LARGE UNSTAINED CELL #; Value: 0.2; Range: 0.0-0.4; Units: K/mm3; Status: F Lab Order: MED Profile; SPEC'M 11/21/16 16:33 Test: GLUCOSE, FASTING; Value: 104; Range: 70-105; Units: MG/DL; Status: F Test: BLOOD UREA NITROGEN; Value: 10; Range: 7-18; Units: MG/DL; Status: F Test: CREATININE FOR GFR; Value: 0.79; Range: 0.55-1.02; Units: MG/DL; Status: F Test: GLOMERULAR FILTRATION RATE; Value: > 60.0; Range: >51; Status: F Test: SODIUM LEVEL; Value: 137; Range: 136-145; Units: MEQ/L; Status: F Test: POTASSIUM SERUM; Value: 3.4; Range: 3.5-5.1; Abnormal: Below low normal; Units: MEQ/L; Status: F Test: CHLORIDE LEVEL; Value: 102; Range: 98-107; Units: MEQ/L; Status: F Test: CARBON DIOXIDE LEVEL; Value: 25; Range: 21-32; Units: MEQ/L; Status: F Test: ANION GAP; Value: 10; Range: 8-16; Units: MEQ/L; Status: F Test: CALCIUM LEVEL; Value: 8.9; Range: 8.5-10.1; Units: MG/DL; Status: F Test Note: ; Units are mL/min/1.73 m2 Chronic Kidney Disease Staging per NKF: Stage I & II GFR >=60 Normal to Mildly Decreased Stage III GFR 30-59 Moderately Decreased Stage IV GFR 15-29 Severely Decreased Stage V GFR <15 Very Little GFR Left ESRD GFR <15 on TILE PRESSER Lab Order: -Influenza A&B Rapid Antigen - Nose; SPEC'M 11/21/16 16:33 Test: INFLUENZA A RAPID SCR by ICA; Value: INFLUENZA A RESULTS NEGATIVE; Status: F Test: INFLUENZA A RAPID SCR by ICA; Value: Comments:; Status: F Test: INFLUENZA B RAPID SCR by ICA; Value: INFLUENZA B RESULTS NEGATIVE; Status: F Test Note: ; The Influenza test is a direct rapid immunoassay for the qualitative detection of Influenza viral antigen. Cell culture (Viral Culture) testing should be considered to confirm NEGATIVE results and to assist in detecting other viruses that can provide similar clinical symptoms. Please contact the lab within 24 hours ([phone] if confirmatory testing is desired. Lab Order: BRAIN NATIURETIC PEPTIDE; SPEC'M 11/21/16 18:51 Test: BRAIN NATRIURETIC PEPTIDE; Value: 225; Range: <100; Abnormal: Above high normal; Units: PG/ML; Status: F Radiology Order: Chest, 2 View (pa\E\lat) Test: Chest, 2 View (pa\E\lat) REASON FOR EXAMINATION: Cough; Clinical: Cough .; ; Comparison: 09/13/2015 .; ; Technique: PA and lateral.; ; Findings:; The mediastinum and cardiac silhouette are normal. The lung salgado are clear and; without acute consolidation, effusion, or pneumothorax. The skeletal structures; are intact and normal.; ; Impression:; 1. No acute cardiopulmonary process.; ; ; Signed by; Manolo Higuera MD 11/21/2016 04:29 P; Outcome: 17:58 Decision to Hospitalize by Provider. ck7 19:43 Admission hand-off: Report Faxed Fax receipt verified by Genna Licona RN . nn1 19:52 Discharge Assessment: Patient awake, alert and oriented x 3. No cognitive and/or nn1 functional deficits noted. Patient verbalized understanding of disposition instructions. patient administered narcotics - no. The following High Risk Discharge criteria are identified: None. Admitted to Med/Surg accompanied by tech, family with patient, via stretcher, with oxygen, with chart. Condition: stable. No special radiology studies were completed. Property :Personal belongings accompany Pt. 20:02 Patient left the ED. nn1 Signatures: Dispatcher [employer] EDMS Jill Solitario, RN RN Kaia Hardin, WILFREDO MAGNAFLUX OPERATOR jam1 AbiolaDalia,RT RT ac1 Didier Grimes, Reg Reg kf3 Flaca Hayward, Wang Steele RN, RPA-C RPA-Cck7 Lorri Hayward gr2 Fidelia Anderson RN RN mk4 Isaac Graves RN RN nn1 Víctor Molina, WILFREDO MAGNAFLUX OPERATOR Angelina Crowley Corrections: (The following items were deleted from the chart) 18:36 15:50 Home Meds: Toprol XL 50 mg Oral Tb24 1 tab once daily; srm jjr Chart Complete MTDD
--- NOTE | 2016-11-23 21:03 | EDDOCDS ---
Physician Documentation [facility] Name: Neelam Cloud Age: 56 yrs Sex: Female : 1960 Arrival Date: 11/21/2016 Time: 15:40 Bed I7 / 29 Private MD: [place] [facility] Disposition: 11/21/16 17:58 Hospitalization ordered by Macarena Bowen for Inpatient Admission. Preliminary diagnosis is Chronic obstructive pulmonary disease with (acute) exacerbation. - Bed requested for 4 [place]. - Status is Inpatient Admission. nn1 - Condition is Stable. - Problem is new. - Symptoms are unchanged. Historical: - Allergies: PENICILLINS; - Home Meds: 1. omeprazole 20 mg Oral cpDR 1 cap once daily 2. simvastatin 40 mg Oral tab 1 tab once daily 3. Zetia 10 mg Oral tab 1 tab once daily 4. aspirin 81 mg Oral tab 1 tab once daily 5. metoprolol tartrate 50 mg Oral tab 1 tab daily - PMHx: Depression; GERD; Hypercholesterolemia; Hypertension; [place]; COPD; - PSHx: D & C; Sinus Surgery; Knee surgery- Left; Coronary Stents; - Social history: Smoking status: Patient uses tobacco products, current every day smoker. No barriers to communication noted, The patient speaks fluent Maltese, Speaks appropriately for age. - Family history: No immediate family members are acutely ill. - : The pt / caregiver states he / she is not on anticoagulants. Home medication list is obtained from the patient. - Exposure Risk Screening:: None identified. 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 5 in. (165.10 cm) (R); Pain 2/10; 17:49 Pulse 140; Pulse Ox 89% ; jam1 18:10 BP 140 / 76; Pulse 128; Resp 20; Pulse Ox 90% on R/A; jjr 19:57 BP 122 / 70; Pulse 120; Resp 20; Temp 96.6(TE); Pulse Ox 93% on 2 lpm NC; nn1 15:42 Body Mass Index 39.94 (108.86 kg, 165.10 cm) gr2 18:10 2 liters NC applied jjr MDM: 16:19 -Blood Culture (Adults Only), peripheral from different site, or from device/port/PICC ck7 etc. if present ordered. 16:19 IV Saline Lock ordered. ck7 16:19 Solu-MEDROL 125 mg IVP once ordered. ck7 16:19 Albuterol-Ipratropium 3 ml Inhalation once ordered. ck7 16:19 Call Respiratory ordered. ck7 16:19 Obtain sample by nasopharyngeal swab ordered. ck7 16:20 CBC with Diff Ordered. EDMS 16:20 MED Profile Ordered. EDMS 16:20 -Influenza A&B Rapid Antigen - Nose Ordered. EDMS 16:21 Chest, 2 View (pa\E\lat) Ordered. EDMS 16:21 Call Respiratory complete. rs6 16:22 -Blood Culture (Adults Only), peripheral from different site, or from device/port/PICC rs6 etc. if present complete. 16:25 BLOOD CULTURES Ordered. EDMS 16:27 BLOOD CULTURES Ordered. EDMS 16:45 Albuterol 2.5 mg Nebulizer once x2 ordered. ck7 16:46 Financial registration complete. kf3 16:51 Chest, 2 View (pa\E\lat) Reviewed. ck7 17:26 [facility] Payment Agreement was scanned into [employer] and attached to record. kf3 17:41 CBC with Diff Reviewed. ck7 17:41 MED Profile Reviewed. ck7 17:41 -Influenza A&B Rapid Antigen - Nose Reviewed. ck7 17:43 Ambulate Patient [facility] Pulse Oximetry ordered. ck7 17:50 BED REQUEST+ADM ordered. EDMS 17:59 Recheck Vital Signs, perform reassessment and enter into [employer] ordered. ck7 18:07 Admission / Observation Status ordered. EDMS 18:07 REGULAR DIET ordered. EDMS 18:53 BRAIN NATIURETIC PEPTIDE Ordered. EDMS 18:58 ECG WITH READING ER PHYS+CARDIAG ordered. EDMS 11/22 18:14 T-Sheet-- Draft Copy was scanned into [employer] and attached to record. klr Administered Medications: 11/21 16:30 Drug: Albuterol-Ipratropium 3 ml [ipratropium-albuterol 0.5 mg-3 mg(2.5 mg base)/3 mL ac1 nebulization soln (3 mL)] Route: Inhalation; 16:38 Follow up: bs clear upper lobes, diminished lower lobes before tx. bs after tx, clear ac1 upper lobes, diminished lower lobes. 17:13 Follow up: bs clear bilat ac1 16:38 Drug: Solu-MEDROL 125 mg [Solu-Medrol 500 mg intravenous solution (125 mg)] Route: IVP; jjr Site: right antecubital; 16:48 Drug: Albuterol 2.5 mg [albuterol sulfate 2.5 mg/0.5 mL solution for nebulization (0.5 ac1 mL)] Route: Nebulizer; 16:54 Drug: Albuterol 2.5 mg [albuterol sulfate 2.5 mg/0.5 mL solution for nebulization (0.5 ac1 mL)] Route: Nebulizer; 16:54 Follow up: bs clear bilat before and after tx. ac1 Signatures: Dispatcher [employer] EDMS Jill Solitario, RN RN srm Sydney, Didier, Reg Reg kf3 Flaca Hayward, RN LAUREN jjWang Valencia, RPA-C RPA-Cck7 Katerin Washington, POKER SUPERVISOR POKER SUPERVISOR rs6 Isaac Graves,RN RN Angelina Walker Steven RN LAUREN Culver, Dalia RT ac1 The chart was reviewed and I authenticate all verbal orders and agree with the evaluation and treatment provided.Corrections: (The following items were deleted from the chart) 17:09 16:20 -BLOOD CULTURES+JULIA ordered. EDMS EDMS 18:36 15:50 Home Meds: Toprol XL 50 mg Oral Tb24 1 tab once daily; srm jjr Attachments: 17:26 [facility] Payment Agreement kf3 11/22 18:14 T-Sheet-- Draft Copy klr Chart Complete MTDD
--- NOTE | 2016-11-23 21:03 | EDDOCDS ---
Physician Documentation [facility] Name: Neelam Cloud Age: 56 yrs Sex: Female : 1960 Arrival Date: 11/21/2016 Time: 15:40 Bed I7 / 29 Private MD: [place] [facility] Disposition: 11/21/16 17:58 Hospitalization ordered by Macarena Bowen for Inpatient Admission. Preliminary diagnosis is Chronic obstructive pulmonary disease with (acute) exacerbation. - Bed requested for 4 [place]. - Status is Inpatient Admission. nn1 - Condition is Stable. - Problem is new. - Symptoms are unchanged. Historical: - Allergies: PENICILLINS; - Home Meds: 1. omeprazole 20 mg Oral cpDR 1 cap once daily 2. simvastatin 40 mg Oral tab 1 tab once daily 3. Zetia 10 mg Oral tab 1 tab once daily 4. aspirin 81 mg Oral tab 1 tab once daily 5. metoprolol tartrate 50 mg Oral tab 1 tab daily - PMHx: Depression; GERD; Hypercholesterolemia; Hypertension; [place]; COPD; - PSHx: D & C; Sinus Surgery; Knee surgery- Left; Coronary Stents; - Social history: Smoking status: Patient uses tobacco products, current every day smoker. No barriers to communication noted, The patient speaks fluent Greek, Speaks appropriately for age. - Family history: No immediate family members are acutely ill. - : The pt / caregiver states he / she is not on anticoagulants. Home medication list is obtained from the patient. - Exposure Risk Screening:: None identified. 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 5 in. (165.10 cm) (R); Pain 2/10; 17:49 Pulse 140; Pulse Ox 89% ; jam1 18:10 BP 140 / 76; Pulse 128; Resp 20; Pulse Ox 90% on R/A; jjr 19:57 BP 122 / 70; Pulse 120; Resp 20; Temp 96.6(TE); Pulse Ox 93% on 2 lpm NC; nn1 15:42 Body Mass Index 39.94 (108.86 kg, 165.10 cm) gr2 18:10 2 liters NC applied jjr MDM: 16:19 -Blood Culture (Adults Only), peripheral from different site, or from device/port/PICC ck7 etc. if present ordered. 16:19 IV Saline Lock ordered. ck7 16:19 Solu-MEDROL 125 mg IVP once ordered. ck7 16:19 Albuterol-Ipratropium 3 ml Inhalation once ordered. ck7 16:19 Call Respiratory ordered. ck7 16:19 Obtain sample by nasopharyngeal swab ordered. ck7 16:20 CBC with Diff Ordered. EDMS 16:20 MED Profile Ordered. EDMS 16:20 -Influenza A&B Rapid Antigen - Nose Ordered. EDMS 16:21 Chest, 2 View (pa\E\lat) Ordered. EDMS 16:21 Call Respiratory complete. rs6 16:22 -Blood Culture (Adults Only), peripheral from different site, or from device/port/PICC rs6 etc. if present complete. 16:25 BLOOD CULTURES Ordered. EDMS 16:27 BLOOD CULTURES Ordered. EDMS 16:45 Albuterol 2.5 mg Nebulizer once x2 ordered. ck7 16:46 Financial registration complete. kf3 16:51 Chest, 2 View (pa\E\lat) Reviewed. ck7 17:26 [facility] Payment Agreement was scanned into [employer] and attached to record. kf3 17:41 CBC with Diff Reviewed. ck7 17:41 MED Profile Reviewed. ck7 17:41 -Influenza A&B Rapid Antigen - Nose Reviewed. ck7 17:43 Ambulate Patient [facility] Pulse Oximetry ordered. ck7 17:50 BED REQUEST+ADM ordered. EDMS 17:59 Recheck Vital Signs, perform reassessment and enter into [employer] ordered. ck7 18:07 Admission / Observation Status ordered. EDMS 18:07 REGULAR DIET ordered. EDMS 18:53 BRAIN NATIURETIC PEPTIDE Ordered. EDMS 18:58 ECG WITH READING ER PHYS+CARDIAG ordered. EDMS 11/22 18:14 T-Sheet-- Draft Copy was scanned into [employer] and attached to record. klr Administered Medications: 11/21 16:30 Drug: Albuterol-Ipratropium 3 ml [ipratropium-albuterol 0.5 mg-3 mg(2.5 mg base)/3 mL ac1 nebulization soln (3 mL)] Route: Inhalation; 16:38 Follow up: bs clear upper lobes, diminished lower lobes before tx. bs after tx, clear ac1 upper lobes, diminished lower lobes. 17:13 Follow up: bs clear bilat ac1 16:38 Drug: Solu-MEDROL 125 mg [Solu-Medrol 500 mg intravenous solution (125 mg)] Route: IVP; jjr Site: right antecubital; 16:48 Drug: Albuterol 2.5 mg [albuterol sulfate 2.5 mg/0.5 mL solution for nebulization (0.5 ac1 mL)] Route: Nebulizer; 16:54 Drug: Albuterol 2.5 mg [albuterol sulfate 2.5 mg/0.5 mL solution for nebulization (0.5 ac1 mL)] Route: Nebulizer; 16:54 Follow up: bs clear bilat before and after tx. ac1 Signatures: Dispatcher [employer] EDMS Jill Solitario, RN RN srm Sydney, Didier, Reg Reg kf3 Flaca Hayward, RN LAUREN jjWang Valencia, RPA-C RPA-Cck7 Katerin Washington, EXTRACT WRINGER EXTRACT WRINGER rs6 Isaac Graves,RN RN Angelina Walker Steven RN LAUREN Culver, Dalia RT ac1 The chart was reviewed and I authenticate all verbal orders and agree with the evaluation and treatment provided.Corrections: (The following items were deleted from the chart) 17:09 16:20 -BLOOD CULTURES+JULIA ordered. EDMS EDMS 18:36 15:50 Home Meds: Toprol XL 50 mg Oral Tb24 1 tab once daily; srm jjr Attachments: 17:26 [facility] Payment Agreement kf3 11/22 18:14 T-Sheet-- Draft Copy klr Chart Complete MTDD
[2016-11-24] VITALS: BP 133/59
[2016-11-24] MEDS: IPRATROPIUM 0.5MG/ALBUTEROL 2.5MG INH SOL UD 3ML (DUONEB)(J7620) NEB SCH (01:45)
[2016-11-24] MEDS: methylPREDNISolone INJ 40 MG/1 ML VIAL (J2920) IV SCH (03:59)
[2016-11-24 04:00] VITALS: BP 127/79
[2016-11-24 05:32] LABS: MEAN CORPUSCULAR HEMOGLOBIN 28.4 pg (27.0-33.0); MEAN CORPUSCULAR HGB CONC 32.4 g/dl (32.0-36.5); MEAN CORPUSCULAR VOLUME 87.7 fl (80.0-96.0); RED CELL DISTRIBUTION WIDTH 14.6 % (11.5-14.5); WHITE BLOOD COUNT 19.4 K/mm3 (4.0-10.0)
[2016-11-24 05:47] LABS: ANION GAP 8 MEQ/L (8-16); BLOOD UREA NITROGEN 14 MG/DL (7-18); CALCIUM LEVEL 8.3 MG/DL (8.5-10.1); CARBON DIOXIDE LEVEL 29 MEQ/L (21-32); CHLORIDE LEVEL 104 MEQ/L (98-107); GLOMERULAR FILTRATION RATE > 60.0 (>51); GLUCOSE, FASTING 173 MG/DL (70-105); POTASSIUM SERUM 4.2 MEQ/L (3.5-5.1); SODIUM LEVEL 141 MEQ/L (136-145)
[2016-11-24] MEDS ORDERED: IPRATROPIUM 0.02% SOLN 0.5MG/2.5 ML NEB INH PRN (06:30)
[2016-11-24] MEDS ORDERED: LEVALBUTEROL 1.25 MG/0.5 ML CONCENTRATE NEB INH PRN (06:30)
[2016-11-24] MEDS: BUDESONIDE 0.5 MG/2 ML INHALATION SUSPENSION INH SCH (07:03)
[2016-11-24 08:00] VITALS: BP 114/64
[2016-11-24] MEDS ORDERED: LEVALBUTEROL 1.25 MG/0.5 ML CONCENTRATE NEB INH SCH (08:00)
[2016-11-24] MEDS ORDERED: IPRATROPIUM 0.02% SOLN 0.5MG/2.5 ML NEB INH SCH (08:00)
[2016-11-24] MEDS ORDERED: METO-209 PO (08:29)
[2016-11-24] MEDS ORDERED: LASI20TA PO (08:29)
[2016-11-24] MEDS ORDERED: PRED10TA PO (08:29)
[2016-11-24] MEDS ORDERED: ADV100INH INH (08:30)
[2016-11-24] MEDS: SENOKOT S TAB PO SCH (08:30)
[2016-11-24] MEDS ORDERED: TIOT18INH INH (08:31)
[2016-11-24] MEDS: FUROSEMIDE 40 MG/4 ML VIAL (J1940) IV SCH (08:31)
--- NOTE | 2016-11-24 11:25 | DSES ---
DATE OF ADMISSION: 11/21/2016 DATE OF DISCHARGE: 11/24/2016 DISCHARGE DIAGNOSES: Decompensated diastolic congestive heart failure (CHF). SECONDARY DIAGNOSES: 1. Decompensated chronic obstructive pulmonary disease (COPD). 2. Coronary artery disease. 3. Dyslipidemia. 4. Thrombocytopenia. HOSPITAL COURSE: The patient is a 56-year-old female who was admitted with dyspnea at rest and on exertion, progressively worsening. She had been treated with multiple courses of steroids and antibiotics by her primary care provider and burlap man for the last several months without significant improvement in her symptoms. She presented to the emergency room once again with her symptoms. She was admitted to the medical/surgical service and initially on treatment for decompensated COPD. Troponin was checked and it was equivocal at 0.15. She was transferred to the progressive care unit and monitored on telemetry. She was seen in consultation by Dr. Massey of cardiology, who completed an echocardiogram that revealed grade 1 diastolic dysfunction with preserved ejection fraction, moderate mitral regurgitation and mitral stenosis. Dr. Hoang did titrate up her beta heavenly and check a CT scan. CTA of her chest did not reveal any evidence of pulmonary embolism. The patient was diuresed over the course of three days, approximately 2.5 to 3 liters with significant improvement in her symptoms. Today, the patient is up and ambulating. She is able to ambulate greater than 100 feet, never dropping her saturations below 90% on room air. SUBJECTIVE: Today, the patient tells me that she is feeling significantly better. She denies chest pain, shortness of breath, fevers, chills, nausea, vomiting, diarrhea. She states that the shortness of breath that she came in with is resolved. OBJECTIVE: VITAL SIGNS: Temperature 96.9, pulse 77, respiratory rate 18, blood pressure 140/64, oxygen saturation is 95% at rest and 90% after ambulating on her feet. GENERAL: She is a morbidly obese, middle aged, female. She is sitting up in bed. She does not appear to be in any acute distress whatsoever. HEENT: Cranial nerves II through XII are grossly intact. She has moist mucous membranes. No elevation in central venous pressure. CARDIOVASCULAR EXAM: S1, S2 irregular. RESPIRATORY EXAM: Fairly clear. No wheezes, rhonchi or rales. Some mildly diminished breath sounds at the bases with a prolonged expiratory phase, but no wheezes. ABDOMINAL EXAM: Grossly obese. EXTREMITIES: No clubbing or cyanosis or appreciable edema. LABORATORY STUDIES: WBC 19.4, hemoglobin 12.9, hematocrit 40, platelet count 109, up from 49 at the time of admission. Chemistry panel: Sodium 141, potassium 4.2, chloride 104, bicarbonate 29, BUN 14, creatinine 0.7. BNP is 240 today, trended down from a peak of 488. Microbiology: Respiratory panel was negative. Flu viral panel was negative. Blood cultures were negative after 48 hours. Flu swab was negative. IMAGING: As outlined above. ASSESSMENT AND PLAN: This is a 56-year-old female with decompensated diastolic congestive heart failure (CHF). 1. Decompensated diastolic congestive heart failure (CHF). She is improved with diuresis. At this time, I feel as though she might be stable for discharge home. She is at her functional baseline. I have spoken with Dr. Hoang, who agrees. She will be discharged on increased dose of metoprolol succinate, Lasix 20 mg by mouth daily, which is a new medication for her. She is to followup with Dr. Hoang. 2. Decompensated COPD. The patient's respiratory status appears to be at baseline. I think that her recurrent problems with dyspnea were less likely related to COPD and more likely related to her newly diagnosed diastolic CHF. However, we will continue with prednisone taper. Curiously, based on her admission history and physical and discussions with the patient and previous history and physicals, she is not on any inhaler treatment for her COPD. As such, she is being provided prescriptions for Advair 100/50, as well as Spiriva. She will followup with her burlap man, Dr. Solano, to see if these need to be continued. 3. Coronary artery disease. She had equivocal troponin, likely related to demand related to decompensated diastolic congestive heart failure. She will followup with Dr. Hoang regarding this. She is on an aspirin, statin and a beta heavenly. She could possibly benefit from outpatient stress test. 4. Dyslipidemia. The patient is on a statin, as well as Zetia. 5. Thrombocytopenia, chronically low, usually in the low 100s, however, she was more pronounced at 49 when she presented. She had been on several courses of fluoroquinolone, which is likely the cause of this without any treatment. Her platelets are now greater than 100. Continue to monitor. 6. Deep vein thrombosis (DVT) prophylaxis. The patient is on TEDs and sequentials. No pharmacological agents secondary to thrombocytopenia. At this time, she will be restarted on her aspirin now that her platelets are greater than 100. DISPOSITION: The patient is to followup with Dr. Solano as soon as possible. She is to followup with her primary care provider within one week. She is to call Dr. Hoang or Dr. Good to be seen within the next weeks. Her activity is as tolerated. Diet is 2 gram sodium. She is to check her weights daily. If greater than 2 pounds then to call personal property assessor. She is to return to the emergency room if her symptoms worsen. DISCHARGE MEDICATIONS: - Lasix 20 mg daily - metoprolol succinate 100 mg at night - prednisone 10 mg tablets four tablets for 4 days, three tablets for 4 days, two tablets for 4 days, and one tablet for 4 days and then stop - Advair 100/50 mcg one puff inhaled twice a day - Spiriva Handi-Haler one inhalation daily - aspirin 81 mg daily - Zetia 10 mg at night - omeprazole 20 mg at night - simvastatin 40 mg at night Greater than 30 minutes was spent organizing disposition.
== END 2016-11-24 10:29 | disposition home or self-care (01) ==
LOC: M ED 15:40 → M ED INP 18:02 → M MSPAV 20:03 → M PCU 11-22 09:37
PROVIDERS: ADMIT Internal Medicine Nephrology; ATTEND Internal Medicine
DX: I50.21 Acute systolic (congestive) heart failure (principal); J44.1 Chronic obstructive pulmonary disease with (acute) exacerbation; I25.10 Atherosclerotic heart disease of native coronary artery without angina pectoris; E78.5 Hyperlipidemia, unspecified; D69.6 Thrombocytopenia, unspecified; K21.9 Gastro-esophageal reflux disease without esophagitis; E66.9 Obesity, unspecified; Z79.51 Long term (current) use of inhaled steroids; Z79.899 Other long term (current) drug therapy; Z79.82 Long term (current) use of aspirin; Z98.61 Coronary angioplasty status; G47.30 Sleep apnea, unspecified; Z88.0 Allergy status to penicillin
CPT/HCPCS: 36415; 71020; 71275; 80048; 80053; 83735; 83880; 85025; 85027; 85049; 87040; 87486; 87581; 87633; 87798; 87804; 90471; 90686; 93005; 94640; 96374; 96375; 96376; 99285; J1940; J2920; J2930; Q9967

== ENCOUNTER 2016-12-26 12:40 | Emergency (ER) | payer OTHER ==
[~2016-12-26] VITALS: Ht 160 cm; Wt 112.5 kg
[~2016-12-26 12:40] MED LIST changes: +ADV100INH INH; +LASI20TA PO; +METO-209 PO; +OMEP20CA3 PO; +PRED10TA PO; +TIOT18INH INH; +TOPR50TA PO
[2016-12-26] MEDS ORDERED: PROA1AER INH (13:11)
[2016-12-26] MEDS ORDERED: ADVA115A INH (13:11)
[2016-12-26 13:37] VITALS: BP 136/63
--- NOTE | 2016-12-26 14:41 | REP ---
Chest two views HISTORY: Cough Comparison: 11/21/2016 The lungs are clear. The heart is normal in size. The pulmonary vasculature is normal in appearance. The bony structure is intact. IMPRESSION: No acute disease. Signed by Irving Hill MD 12/26/2016 02:32 P
[2016-12-26 14:50] LABS: ALBUMIN 3.2 GM/DL (3.2-5.2); ALBUMIN/GLOBULIN RATIO 0.71 (1.00-1.93); ALKALINE PHOSPHATASE 65 U/L (45-117); ALT/SGPT 74 U/L (12-78); ANION GAP 8 MEQ/L (8-16); AST/SGOT 42 U/L (15-37); BILIRUBIN,DIRECT < 0.1 MG/DL (0.0-0.2); BILIRUBIN,TOTAL 0.4 MG/DL (0.2-1.0); BLOOD UREA NITROGEN 11 MG/DL (7-18); CARBON DIOXIDE LEVEL 29 MEQ/L (21-32); CHLORIDE LEVEL 103 MEQ/L (98-107); CREATININE FOR GFR 0.88 MG/DL (0.55-1.02); GLOMERULAR FILTRATION RATE > 60.0 (>51); GLUCOSE, FASTING 132 MG/DL (70-105); POTASSIUM SERUM 3.3 MEQ/L (3.5-5.1); SODIUM LEVEL 140 MEQ/L (136-145); TOTAL PROTEIN 7.7 GM/DL (6.4-8.2)
[2016-12-26 15:12] LABS: BASO % 0.7 % (0.0-1.0); EOS # 0.1 K/mm3 (0.0-0.50); EOS % 1.3 % (0.0-3.0); LARGE UNSTAINED CELL # 0.3 K/mm3 (0.0-0.4); LARGE UNSTAINED CELL % 3.4 % (0.0-4.0); LYMPH # 2.2 K/mm3 (1.5-4.5); LYMPH % 27.9 % (24.0-44.0); MEAN CORPUSCULAR HEMOGLOBIN 28.1 pg (27.0-33.0); MEAN CORPUSCULAR HGB CONC 32.1 g/dl (32.0-36.5); MEAN CORPUSCULAR VOLUME 87.6 fl (80.0-96.0); MONO # 0.5 K/mm3 (0.0-0.8); MONO % 6.1 % (0.0-5.0); NEUTROPHILS # 4.8 K/mm3 (1.8-7.7); NEUTROPHILS % 60.5 % (36.0-66.0); PLATELET COUNT, AUTOMATED 161 k/mm3 (150-450); RED CELL DISTRIBUTION WIDTH 15.5 % (11.5-14.5); WHITE BLOOD COUNT 7.9 K/mm3 (4.0-10.0)
[2016-12-26] MEDS ORDERED: POTASSIUM CHLORIDE 10 MEQ SR TABLET PO ONE (15:45)
--- NOTE | 2016-12-27 16:31 | ECGEPIP ---
Stationary ECG Study [facility] - ED Test Date: 2016-12-26 Pat Name: LARISSA GODWIN Department: Room: - Gender: F Card Hanger: connie : 1960 Requested By: JEANETTE Sagastume Order Number: [id number] Reading MD: Fabiola Oakes Measurements Intervals [place] Rate: 83 P: 37 MS: 164 QRS: -14 QRSD: 94 T: 116 QT: 397 QTc: 469 Interpretive Statements SINUS RHYTHM WITH OCCASIONAL ECTOPIC PREMATURE COMPLEXES POSSIBLE LEFT ATRIAL ENLARGEMENT ANTEROSEPTAL MYOCARDIAL INFARCTION, OLD NSTTW ABNORMALITY SIMILAR 11/22/16 Electronically Signed On 12-27-2016 16:31:05 EDT by Fabiola Oakes
== END 2016-12-26 15:58 | disposition home or self-care (01) ==
LOC: M ED 15:40
DX: E87.6 Hypokalemia (principal); R06.02 Shortness of breath

== ENCOUNTER 2017-03-23 11:20 | Observation (INO) | payer OTHER ==
[~2017-03-23] VITALS: Ht 165.1 cm; Wt 110.0 kg
[~2017-03-23 11:20] MED LIST changes: +ADVA115A INH; -METO-209 PO; +METO1TAB33 PO; +METO50TA7 PO; -PRED10TA PO; +PRED10TA2 PO; +PROAAER10 INH; -ZETI10TA2 PO; +ZETI10TA30 PO
[2017-03-23] MEDS ORDERED: PROAAER10 INH (11:34)
[2017-03-23] MEDS ORDERED: TOPR50TA PO (11:34)
[2017-03-23] MEDS ORDERED: FURO80TA2 PO (11:34)
[2017-03-23] MEDS ORDERED: K-TA10TA2 PO (11:34)
[2017-03-23] MEDS ORDERED: methylPREDNISolone INJ 125 MG/2 ML VIAL (J2930) IV ONE (12:30)
[2017-03-23] MEDS ORDERED: LevoFLOXacin IV 500 MG in APPROPRIATE DILUENT 1 EA IV ONE (13:15)
[2017-03-23 13:18] LABS: MEAN CORPUSCULAR HEMOGLOBIN 29.1 pg (27.0-33.0); MEAN CORPUSCULAR HGB CONC 33.3 g/dl (32.0-36.5); MEAN CORPUSCULAR VOLUME 87.6 fl (80.0-96.0); RED CELL DISTRIBUTION WIDTH 14.5 % (11.5-14.5)
[2017-03-23] MEDS: IPRATROPIUM 0.5MG/ALBUTEROL 2.5MG INH SOL UD 3ML (DUONEB)(J7620) NEB PRN ×3 (13:23→13:26)
[2017-03-23] MEDS ORDERED: IPRATROPIUM 0.5MG/ALBUTEROL 2.5MG INH SOL UD 3ML (DUONEB)(J7620) As Ordered ONE (13:29)
[2017-03-23 13:36] LABS: ANION GAP 5 MEQ/L (8-16); BLOOD UREA NITROGEN 8 MG/DL (7-18); CALCIUM LEVEL 8.7 MG/DL (8.5-10.1); CARBON DIOXIDE LEVEL 33 MEQ/L (21-32); CHLORIDE LEVEL 99 MEQ/L (98-107); CREATININE FOR GFR 0.79 MG/DL (0.55-1.02); GLOMERULAR FILTRATION RATE > 60.0 (>51); GLUCOSE, FASTING 86 MG/DL (70-105); POTASSIUM SERUM 3.4 MEQ/L (3.5-5.1); SODIUM LEVEL 137 MEQ/L (136-145)
--- NOTE | 2017-03-23 14:16 | REP ---
CHEST PA AND LATERAL: 03/23/2017 CLINICAL HISTORY: Dyspnea. COMPARISON: Portable chest 12/26/2016, two-view chest 11/21/2016. FINDINGS: Lungs are well inflated. CP angles sharply defined. There is no effusion, lateral pleural thickening or parenchymal mass. Minor basilar fibrotic changes, similar to previous studies without dense consolidation. There is peribronchial thickening that might reflect reactive airway disease or bronchitis. Posterior CP angles well defined as are the frontal CP angles. Heart size borderline without specific chamber enlargement. The aorta is calcified at the arch without aneurysm. Airway intact. No widening the mediastinum. Some venous hypertension seen without pulmonary edema. The spine shows no acute compression deformity and some degenerative changes. No free air under the diaphragm IMPRESSION: 1. Borderline heart size with some venous hypertension but no pulmonary edema, pleural effusion or acute infiltrate. 2. Some basilar fibrotic changes and peribronchial thickening. The latter may suggest some bronchitis or reactive airway disease. 3. Aorta normal for age. Bones without acute compression deformity. Signed by Luis A Cid MD 03/23/2017 07:38 P
[2017-03-23] MEDS ORDERED: ACETAMINOPHEN TAB 650MG DOSE (2X325MG) PO PRN (15:45)
[2017-03-23] MEDS ORDERED: IPRATROPIUM 0.5MG/ALBUTEROL 2.5MG INH SOL UD 3ML (DUONEB)(J7620) NEB PRN (15:45)
[2017-03-23] MEDS ORDERED: ONDANSETRON 4MG/2ML VIAL (J2405) IV PRN (15:45)
[2017-03-23] MEDS ORDERED: POTASSIUM CHLORIDE 10 MEQ SR TABLET PO ONE (16:00)
[2017-03-23] MEDS ORDERED: PANT40TA2 PO (16:08)
--- NOTE | 2017-03-23 16:16 | ECGEPIP ---
Stationary ECG Study [facility] - ED Test Date: 2017-03-23 Pat Name: LARISSA GODWIN Department: Room: - Gender: F Child And Adolescent Psychiatrist: brayan : 1960 Requested By: Bronson Cordon Order Number: [id number] Reading MD: Bronson Clemens Measurements Intervals [place] Rate: 87 P: 57 AR: 158 QRS: 17 QRSD: 102 T: 94 QT: 376 QTc: 453 Interpretive Statements SINUS RHYTHM INC. RBBB LEFT ATRIAL ENLARGEMENT ANTEROSEPTAL MYOCARDIAL INFARCTION, OF INDETERMINATE AGE SIMILAR TO 12/26/16 Electronically Signed On 03-23-2017 16:16:05 EDT by Bronson Clemens
[2017-03-23] MEDS ORDERED: ALBUTEROL 90 MCG/ACT 8GM HFA INHALER INH PRN (16:30)
--- NOTE | 2017-03-23 17:05 | HPE ---
DATE OF ADMISSION: 03/23/2017 PRIMARY CARE PROVIDER: Maurojesenia Huff. ESCROW SECRETARY: Alexia Good MD ZIPPER REPAIRER: Oliver Solano MD CHIEF COMPLAINT: Shortness of breath exacerbation as well as cough and chest discomfort. HISTORY OF PRESENT ILLNESS: Ms. Cloud is a 56-year-old female with multiple past medical history who presented to the emergency room (ER) due to experiencing shortness of breath, coughing, as well as mild chest and abdominal discomfort possibly secondary to coughing. Patient expressed that her symptoms started yesterday after she came back from work. 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 However, patient expressed that the cough was nonproductive. Patient also felt congested and patient expressed that after the cough had started patient had 1-2 episodes of lightheadedness possibly secondary to coughing. Patient uses continuous positive airway pressure (CPAP). Patient expressed that she went upstairs and used her CPAP which helped her for the breathing. Patient also felt tired and fatigued and slept until 5 a.m. Patient expressed that at night she continued to have a cough. Patient does not wear oxygen, however patient has breathing treatment and breathing treatment did not help her with the cough. Patient's sister encouraged her to come to the ER. Patient expressed that she felt warm, however she did not take her temperature. Patient had chills but no night sweats. 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 Patient denies syncope or seizure-type activities. In the ER, patient received Solu-Medrol as well as DuoNeb which helped her symptoms tremendously. Patient also received one dose of Levaquin. Hospitalist was called to admit the patient. Patient expressed that on 12/18/2016, she had catheterization for rechecking and they did not find any blockage, which was done at [facility] in [place]. ALLERGIES: PENICILLIN and PENICILLIN CROSS-REACTORS. PAST MEDICAL HISTORY: 1. Chronic obstructive pulmonary disease (COPD). 2. Coronary artery disease status post stents. 3. Mitral regurgitation. 4. Left ventricular diastolic dysfunction. 5. Obesity. 6. Obstructive sleep apnea. 7. Gastroesophageal reflux disease (GERD). 8. Hyperlipidemia. PAST SURGICAL HISTORY: 1. Sinus surgery. 2. Knee surgery. 3. Cardiac stents in 2009 with greater than 80% blockage. 4. Bilateral foot surgery. HOME MEDICATIONS: - albuterol sulfate one puff inhaled four times a day as needed for shortness of breath - aspirin 81 mg by mouth nightly - Zetia 10 mg by mouth nightly - furosemide 80 mg by mouth daily - Toprol XL 50 mg by mouth nightly - pantoprazole sodium 40 mg by mouth nightly - K-Tab 10 mg by mouth nightly - Advair HFA two puffs inhaled twice a day - simvastatin 40 mg by mouth nightly SOCIAL HISTORY: Patient lives with her . Patient has two sons who are healthy. Patient started smoking at age 14 and stopped last October. Patient smoked about a pack a day. Patient denies illicit drug use. Patient expressed that she drinks alcohol occasionally. Patient has not traveled outside of [place]. Patient has two cats, one dog. Patient tries to eat healthy. FAMILY HISTORY: Patient has one sister who has been diagnosed with esophageal cancer secondary to smoking. Patient's mother due to leukemia. Patient's father at age 31 due to heart disease. REVIEW OF SYSTEMS: GENERAL: Patient felt warm, however patient did not take her temperature and patient denies night sweats, however patient has chills. Patient denies weight loss. HEENT: Patient had two episodes of lightheadedness and dizziness when she stood up from a sitting position, possibly secondary to coughing, however patient denies syncope. Patient denies acute vision or hearing changes. Patient denies problem with chewing food or sinusitis. NECK: Patient denies lumps, bumps, or decreased range of motion of her neck. HEART: Patient denies palpitations, racing or skipping heartbeat, however patient has mild chest discomfort, mostly on the mid sternum, possibly secondary to coughing. LUNGS: Patient has dyspnea and coughing since yesterday without sputum production. Patient also felt wheezing. ABDOMEN: Patient has abdominal pain, possibly secondary to coughing. However, patient denies melena, hematochezia, hemoptysis, nausea, vomiting, diarrhea, or constipation. NEUROLOGIC: Patient denies history of transient ischemic attack (TIA), seizure or seizure-type activities. PHYSICAL EXAMINATION: VITAL SIGNS: Temperature 99.3, pulse 99, respiratory rate 22, blood pressure 147/60, pulse oximetry 91% on room air. GENERAL APPEARANCE: Patient was sitting on the bed in no acute distress. Patient was awake, alert, and oriented to time, place, and person. HEENT: Normocephalic, atraumatic. Pupils are equal and reactive to light. Oral mucous is moist. NECK: Soft, supple. No lymphadenopathy. No thyromegaly. No jugular venous distention (JVD). HEART: Regular rate and rhythm, normal S1, S2. ABDOMEN: Soft, nontender. Positive bowel sounds in all quadrants. LUNGS: Patient has clear breath sounds bilaterally, since examination was done after breathing treatment, good air movement. EXTREMITIES: Patient has mild pitting edema bilaterally in both lower extremities. Normal range of motion in both lower extremities. Patient has normal sensation and strength in both upper and lower extremities. NEUROLOGIC: Cranial nerves II-XII intact. No focal deficiencies. LABORATORY DATA: White blood cells 7, red blood cells 4.38, hemoglobin 12.8, hematocrit 38.4, MCV 87.6, MCH 29.1, MCHC 33.3, RDW 14.5, platelet count 137. Sodium 137, potassium 3.4, chloride 99, carbon dioxide 33, anion gap 5, BUN 8, creatinine 0.79, glomerular filtration rate more than 60, fasting glucose 86, lactic acid 1.4, calcium 8.7, total creatine kinase 303, CK-MB 1.4, CK-MB relative index 0.46, troponin I 0.02, C-reactive protein 4.97, BNP 461. Chest x-ray shows borderline heart size with some venous hypertension but no pulmonary edema, pleural effusion, or acute infiltration. Some bibasilar fibrotic changes and peribronchial thickening which may suggest bronchitis or reactive airway disease. Aorta normal for age. Bones without acute compression deformity. ASSESSMENT AND PLAN: 1. Dyspnea. This is possibly secondary to chronic obstructive pulmonary disease (COPD) exacerbation. At this time, we have started patient on Solu-Medrol as well as breathing treatment. Also, due to the possibility of bronchitis, we have started patient on Levaquin. Also, we have ordered sputum culture and stain as well as respiratory panel and blood culture, result is pending at this time. C-reactive is in normal range. 2. Coronary artery disease with history of stents. According to the patient, she had cardiac catheterization which was done at [facility] on 12/18/2016, for evaluation which was negative. At this time, we will continue patient on home dosage of aspirin, Toprol XL, and Zocor. Also, we have checked the cardiac marker which was negative. We will repeat the cardiac marker. Patient is asymptomatic at this time. 3. Diastolic congestive heart failure. Patient's latest echocardiogram was done on 11/22/2016, which indicated estimated global left ventricular systolic ejection fraction of 60%. At this time, we will continue patient on Lasix 80 mg by mouth daily. Also, we will continue patient on Toprol XL 50 mg by mouth nightly. We will continue monitoring patient's daily weight and intake and output. 4. Mitral regurgitation. We will continue patient on Lasix home dosage. 5. Hyperlipidemia. We will continue patient on simvastatin and Zetia. 6. Gastroesophageal reflux disease (GERD). We will continue patient on omeprazole. 7. Deep venous thrombosis (DVT) prophylaxis. We will continue patient on Lovenox 40 mg subcutaneously nightly. 8. Thrombocytopenia. This could be related to medication, especially antibiotic. We will continue monitoring patient's platelet level. 9. Obstructive sleep apnea. Patient is on continuous positive airway pressure (CPAP). Patient's sister will bring the CPAP to the hospital. My preceptor for this patient encounter was Dr. Saadia Reese. The preceptor was physically present in the building during the encounter and was fully available. As needed, all aspects of the patient interview, examination, medical decision making process, and medical care plan development were reviewed and approved by the preceptor. The preceptor is aware and concurs with the plan as stated in the body of this note and will attest to such by his cosignature. I have both independently examined this patient as well as reviewed the note. I have discussed in detail with the resident the findings and plan of treatment as documented in the residents note. I will continue to follow the patient and offer further guidance to the patients care as necessary during this hospital stay. Saadia BALTAZAR
[2017-03-23 17:50] VITALS: BP 140/70
[2017-03-23] MEDS: IPRATROPIUM 0.5MG/ALBUTEROL 2.5MG INH SOL UD 3ML (DUONEB)(J7620) NEB SCH (20:00)
[2017-03-23] MEDS: ADVAIR HFA 115/21MCG INHALER INH SCH (20:25)
[2017-03-23] MEDS ORDERED: POTASSIUM CHLORIDE 10 MEQ SR TABLET PO SCH (21:00)
[2017-03-23] MEDS ORDERED: ENOXAPARIN 40 MG/0.4 ML SYRINGE (J1650) SC SCH (21:00)
[2017-03-23] MEDS ORDERED: EZETIMIBE 10 MG TAB (ZETIA) PO SCH (21:00)
[2017-03-23] MEDS ORDERED: SIMVASTATIN 40 MG TAB PO SCH (21:00)
[2017-03-23] MEDS ORDERED: METOPROLOL SUCC (TopROL XL) 50MG **XL** TAB PO SCH (21:00)
[2017-03-23] MEDS ORDERED: PANTOPRAZOLE 40MG TAB (PROTONIX) PO SCH (21:00)
[2017-03-23] MEDS ORDERED: ASPIRIN 81 MG ENTERIC TAB PO SCH (21:00)
[2017-03-23 21:26] VITALS: BP 140/70
[2017-03-23] MEDS: SENOKOT S TAB PO SCH (21:27)
[2017-03-23 22:00] VITALS: BP 138/71
[2017-03-24] MEDS ORDERED: methylPREDNISolone INJ 40 MG/1 ML VIAL (J2920) IV SCH (01:00)
[2017-03-24] MEDS: IPRATROPIUM 0.5MG/ALBUTEROL 2.5MG INH SOL UD 3ML (DUONEB)(J7620) NEB SCH ×2 (01:14→07:31)
[2017-03-24 05:58] LABS: MEAN CORPUSCULAR HEMOGLOBIN 28.7 pg (27.0-33.0); MEAN CORPUSCULAR HGB CONC 32.9 g/dl (32.0-36.5); MEAN CORPUSCULAR VOLUME 87.4 fl (80.0-96.0); RED CELL DISTRIBUTION WIDTH 14.7 % (11.5-14.5); WHITE BLOOD COUNT 6.4 K/mm3 (4.0-10.0)
[2017-03-24 06:00] VITALS: BP 124/60
[2017-03-24 06:06] LABS: ANION GAP 4 MEQ/L (8-16); BLOOD UREA NITROGEN 10 MG/DL (7-18); CARBON DIOXIDE LEVEL 29 MEQ/L (21-32); CHLORIDE LEVEL 103 MEQ/L (98-107); CREATININE FOR GFR 0.89 MG/DL (0.55-1.02); GLOMERULAR FILTRATION RATE > 60.0 (>51); GLUCOSE, FASTING 177 MG/DL (70-105); MAGNESIUM LEVEL 2.5 MG/DL (1.8-2.4); POTASSIUM SERUM 3.9 MEQ/L (3.5-5.1); SODIUM LEVEL 136 MEQ/L (136-145)
[2017-03-24] MEDS: ADVAIR HFA 115/21MCG INHALER INH SCH (07:31)
[2017-03-24] MEDS ORDERED: FUROSEMIDE 80 MG TAB PO SCH (09:00)
[2017-03-24] MEDS: SENOKOT S TAB PO SCH (09:33)
[2017-03-24] MEDS ORDERED: PRED10TA2 PO ×2 (10:28→11:03)
[2017-03-24] MEDS ORDERED: LEVA1TAB2 PO (10:28)
[2017-03-24] MEDS ORDERED: LevoFLOXacin IV 500 MG in APPROPRIATE DILUENT 1 EA IV SCH (14:00)
--- NOTE | 2017-03-24 22:54 | DSES ---
DATE OF ADMISSION: 03/23/2017 DATE OF DISCHARGE: 03/24/2017 FINAL DIAGNOSES: 1. Acute chronic obstructive pulmonary disease exacerbation secondary to human rhinovirus bronchitis, possible early community-acquired bacterial pneumonia. 2. Coronary artery disease. 3. Diastolic congestive heart failure. 4. Mitral regurgitation. 5. Dyslipidemia. 6. Gastroesophageal reflux disease. PRIMARY CARE PROVIDER: [facility] BEAM RACKER: Dr. Good. ORACLE BUSINESS ANALYST: Dr. Solano HISTORY OF PRESENT ILLNESS: This is a 56-year-old female patient with multiple past medical history, which includes chronic obstructive pulmonary disease (COPD), coronary artery disease with stents, mitral regurgitation, diastolic congestive heart failure, obesity, obstructive sleep apnea, uses continuous positive airway pressure (CPAP), gastroesophageal reflux disease (GERD), dyslipidemia. Patient presented to the emergency room due to experiencing shortness of breath, coughing, as well as mild chest and abdominal discomfort secondary to coughing. Patient expressed that her symptoms started the day prior after came back from work. 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 and expressed that that night she continued to have cough and did not wear oxygen; however, she has breathing treatment, which did not help her. Patient's family subsequently encouraged patient to present. Patient had chills but no fevers but did not measure her temperature. Denies any sick contact. Received a dose of Levaquin and multiple nebulizer treatments and steroids in the emergency room with mild improvement. Subsequently patient was admitted. HOSPITAL COURSE: Patient was admitted to the hospital for acute COPD exacerbation. Antibiotics continued, Levaquin. Respiratory panel sent. Blood cultures sent. Patient's respiratory panel positive for human rhinovirus, and patient's symptoms improved with steroids, nebulizer treatments, and antibiotics. Subsequently, patient was ready for discharge for further care as outpatient, tolerating oral. VITAL SIGNS: Temperature 97.4, pulse 86, respirations 19, blood pressure 124/60, pulse oximetry 94% on room air. GENERAL: Patient alert and oriented times three in no acute distress, comfortable, obese. HEENT: Normocephalic, atraumatic. PULMONARY: Distant breath sounds. Mild expiratory wheeze. CARDIAC: Regular rate and rhythm. Normal S1, S2. ABDOMEN: Soft, nontender, obese. Positive bowel sounds. EXTREMITIES: No edema, bilateral lower extremities. LABORATORY DATA: WBC 6.8, hemoglobin and hematocrit 12.3/37.5, platelets 142. Chemistry: Sodium 136, potassium 3.9, chloride 103, bicarbonate 29, BUN 10, creatinine 0.89. DISCHARGE MEDICATIONS: - Levaquin 500 mg by mouth daily for 5 more days - prednisone taper 10 mg tablet, take six tablets by mouth daily for 2 days, four tablets by mouth daily for 2 days, three tablets by mouth daily for 2 days, two tablets by mouth daily for 2 days, then one tablet by mouth daily for 2 days, then stop - Patient's home medication of ProAir as needed will be continued. - aspirin 81 continued at bedtime - Zetia 10 mg by mouth at bedtime - Lasix 80 mg by mouth daily - metoprolol 50 mg by mouth at bedtime - Protonix 40 mg by mouth at bedtime - potassium chloride 10 mEq by mouth at bedtime - Advair inhalation twice a day - Zocor 40 mg by mouth at bedtime DISCHARGE INSTRUCTIONS: Patient is instructed to followup with his primary care provider in 7 days. Return to the hospital if symptoms worsen.
== END 2017-03-24 12:05 | disposition home or self-care (01) ==
LOC: M ED 12:44 → M ED INP 15:44 → INTOOBSV 15:44 → M MSPAV 17:40
PROVIDERS: ADMIT Hospitalist; ATTEND Hospitalist
DX: J44.1 Chronic obstructive pulmonary disease with (acute) exacerbation (principal); I25.10 Atherosclerotic heart disease of native coronary artery without angina pectoris; I50.30 Unspecified diastolic (congestive) heart failure; I34.0 Nonrheumatic mitral (valve) insufficiency; E78.5 Hyperlipidemia, unspecified; K21.9 Gastro-esophageal reflux disease without esophagitis; D69.6 Thrombocytopenia, unspecified; Z98.61 Coronary angioplasty status; Z79.51 Long term (current) use of inhaled steroids; E66.9 Obesity, unspecified; Z79.82 Long term (current) use of aspirin; Z79.899 Other long term (current) drug therapy; G47.33 Obstructive sleep apnea (adult) (pediatric)
CPT/HCPCS: 36415; 71020; 80048; 82550; 82553; 83605; 83735; 83880; 85027; 86140; 87040; 87486; 87581; 87633; 87798; 93005; 94640; 96365; 96367; 96372; 96376; 99285; J1650; J1956; J2920; J2930

== ENCOUNTER 2017-05-21 11:34 | Outpatient (CLI) | payer OTHER ==
[~2017-05-21] VITALS: Ht 162.6 cm; Wt 108.9 kg
[~2017-05-21 11:34] MED LIST changes: +FURO80TA2 PO; +K-TA10TA2 PO; +LEVA1TAB2 PO; +PANT40TA2 PO
[2017-05-21] MEDS ORDERED: NS 1,000 ML IV ONE (12:00)
[2017-05-21] MEDS ORDERED: MIDAZOLAM INJ 2 MG/2 ML VIAL (J2250) As Ordered ONE (13:06)
[2017-05-21] MEDS ORDERED: fentaNYL 100 MCG/2 ML INJECTION (J3010) As Ordered ONE (13:07)
[2017-05-21] MEDS ORDERED: LIDOCAINE 2% INJ 100 MG/5 ML SDV (FOR ANES.) As Ordered ONE (13:07)
--- NOTE | 2017-05-21 13:26 | ROOR ---
Patient Name: Neelam Cloud Procedure Date: 05/21/2017 1:08 PM Date of : 1960 Age: 57 Room: [facility] Gender: Female Note Status: Finalized Procedure: Upper GI endoscopy + Balloon Dilatation + Biopsies Indications: Globus sensation Providers: Davon Fernandez MD Referring MD: YOVANA YEN MD Requesting Provider: Medicines: Monitored Anesthesia Care Complications: No immediate complications. Procedure: Pre-Anesthesia Assessment: - The heart rate, respiratory rate, oxygen saturations, blood pressure, adequacy of pulmonary ventilation, and response to care were monitored throughout the procedure. The Endoscope was introduced through the mouth, and advanced to the second part of duodenum. The upper GI endoscopy was accomplished without difficulty. The patient tolerated the procedure well. Findings: The Z-line was variable and was found 39 cm from the incisors. A small hiatal hernia was present. A TTS dilator was passed through the scope. Dilation with an 18-19-20 mm balloon dilator was performed to 20 mm under fluoroscopic guidance in the entire esophagus. Mucosal changes including ringed esophagus were found in the lower third of the esophagus. Biopsies were taken with a cold forceps for histology. No other significant abnormalities were identified in a careful examination of the stomach. The exam of the duodenum was otherwise normal. Impression: - Z-line variable, 39 cm from the incisors. - Small hiatal hernia. - Esophageal mucosal changes suggestive of eosinophilic esophagitis. Biopsied. - Dilation performed in the entire esophagus. - The examination was otherwise normal. Recommendation: - Await pathology results. - Discharge patient to home. - Follow an antireflux regimen. - Continue present medications. - Await pathology results. - Telephone GI clinic for pathology results in 1 week. - Return to referring physician. - The findings and recommendations were discussed with the patient's family. Davon Fernandez MD Davon Fernandez MD 05/21/2017 1:26:29 PM This report has been signed electronically. Number of Addenda: 0 Note Initiated On: 05/21/2017 1:08 PM Estimated Blood Loss: Estimated blood loss: none.
[2017-05-21 13:50] VITALS: BP 126/68
== END 2017-05-21 13:58 | disposition home or self-care (01) ==
LOC: M OPP 11:34
PROVIDERS: ATTEND Internal Medicine Gastroenterology
DX: K22.8 Other specified diseases of esophagus (principal); K44.9 Diaphragmatic hernia without obstruction or gangrene; I10 Essential (primary) hypertension; K21.9 Gastro-esophageal reflux disease without esophagitis; J45.909 Unspecified asthma, uncomplicated; J44.9 Chronic obstructive pulmonary disease, unspecified; G47.30 Sleep apnea, unspecified; F17.210 Nicotine dependence, cigarettes, uncomplicated; E78.00 Pure hypercholesterolemia, unspecified; Z95.5 Presence of coronary angioplasty implant and graft; I25.2 Old myocardial infarction; Z79.899 Other long term (current) drug therapy; Z88.0 Allergy status to penicillin
CPT/HCPCS: 43239; 43249; 88305; J2250; J3010

== ENCOUNTER → 2017-08-19 | Outpatient (CLI) | payer OTHER ==
--- NOTE | 2017-08-19 09:17 | REPMRS ---
Patient History The patient states she has not had a clinical breast exam in over a year. Patient is postmenopausal. No known family history of cancer. Digital Woman Screen Mammo: August 19, 2017 - Exam #: [id number] Bilateral CC and MLO view(s) were taken. Technologist: Morenita Castrejon, Technologist Prior study comparison: March 16, 2014, digital woman screen mammo performed at [facility]. July 16, 2012, digital woman screen mammo performed at [facility]. FINDINGS: There are scattered fibroglandular densities. There has been no change in the appearance of the mammogram from the prior studies. There is a mild amount of residual fibroglandular tissue which is fairly symmetric. There is no interval development of dominant mass, architectural distortion, or clustered microcalcification suggestive of malignancy. ASSESSMENT: BI-RADS/ACR category 1 mammogram. Negative. Recommendation Routine screening mammogram in 1 year (for women over age 40). This mammogram was interpreted with the aid of an FDA-approved computer-aided dectection system. Electronically Signed By: Rolo Snider MD 08/19/17 0917
== END ==
LOC: M WHC 06:27
PROVIDERS: ATTEND Internal Medicine
DX: Z12.31 Encounter for screening mammogram for malignant neoplasm of breast (principal)

== ENCOUNTER → 2018-07-20 | Outpatient (CLI) | payer OTHER | LOC: M RAD 10:00 | DX: I65.23 Occlusion and stenosis of bilateral carotid arteries (principal) | CPT/HCPCS: 93880 ==

== ENCOUNTER 2019-02-22 12:55 | Emergency (ER) | payer OTHER ==
[~2019-02-22] VITALS: Ht 162.6 cm; Wt 102.5 kg
[~2019-02-22 12:55] MED LIST changes: -/MOXI40TA PO; +AVEL1TAB2 PO; -LASI20TA PO; +LASI20TA3 PO; +NICO21DI3 EXT; -NICO21PAT EXT; -PANT40TA2 PO; +PANT40TA3 PO
[2019-02-22] MEDS ORDERED: CLOPIDOGREL 300 MG TAB (PLAVIX) ONE (12:56)
[2019-02-22] MEDS ORDERED: ASPIRIN 81 MG CHEW TABLET ONE (12:56)
[2019-02-22] MEDS ORDERED: HEPARIN 25,000 UNITS/250 ML D5W BAG (100 UNITS/ML) ONE (12:56)
[2019-02-22] MEDS ORDERED: HEPARIN SOD (PORCINE) 5000 UNITS/ML VIAL ONE (12:56)
[2019-02-22] MEDS ORDERED: NITROGLYCERIN/D5W 100MCG/ML 25 MG in APPROPRIATE DILUENT 1 EA IV SCH (13:11)
[2019-02-22] MEDS ORDERED: ASPIRIN 81 MG CHEW TABLET PO ONE (13:15)
[2019-02-22] MEDS ORDERED: CLOPIDOGREL 300 MG TAB (PLAVIX) PO ONE (13:15)
[2019-02-22] MEDS ORDERED: TENECTEPLASE 50 MG KIT (TNKase)(J3101) IV ONE (13:15)
[2019-02-22] MEDS ORDERED: ONDANSETRON 4MG/2ML VIAL (J2405) IV ONE (13:15)
[2019-02-22] MEDS ORDERED: NS 500 ML IV ONE ×2 (13:15→14:00)
[2019-02-22] MEDS ORDERED: HEPARIN SOD (PORCINE) 5000 UNITS/ML VIAL IV ONE (13:15)
[2019-02-22] MEDS: NITROGLYCERIN 0.4 MG SUBL TABLET SL PRN ×3 (13:25→13:38)
--- NOTE | 2019-02-22 13:27 | REP ---
Clinical: acute chest pain Comparison: 03/23/2017 . Findings: The mediastinum and cardiac silhouette are stable and within normal limits for portable technique. The lung salgado are clear without acute consolidation, effusion, or pneumothorax. Skeletal structures are intact. Impression: No acute cardiopulmonary process appreciated. Electronically Signed by Manolo Higuera MD 02/22/2019 01:18 P
[2019-02-22] MEDS ORDERED: IPRATROPIUM 0.5MG/ALBUTEROL 2.5MG INH SOL UD 3ML (DUONEB)(J7620) NEB ONE (13:30)
[2019-02-22] MEDS ORDERED: HEPARIN DRIP 25,000 UNITS in APPROPRIATE DILUENT 1 EA IV SCH (13:30)
[2019-02-22 13:35] LABS: BASO % 0.5 % (0.0-1.0); EOS # 0.2 10^3/uL (0.0-0.50); EOS % 2.2 % (0.0-3.0); HEMATOCRIT 43.5 % (36.0-47.0); LYMPH # 2.7 10^3/uL (1.5-4.5); LYMPH % 31.7 % (24.0-44.0); MEAN CORPUSCULAR HEMOGLOBIN 27.3 pg (27.0-33.0); MEAN CORPUSCULAR HGB CONC 32.2 g/dl (32.0-36.5); MEAN CORPUSCULAR VOLUME 84.8 fl (80.0-96.0); MONO # 0.9 10^3/uL (0.0-0.8); MONO % 10.2 % (0.0-5.0); NEUTROPHILS # 4.8 10^3/uL (1.8-7.7); NEUTROPHILS % 55.1 % (36.0-66.0); PLATELET COUNT, AUTOMATED 172 10^3/uL (150-450); RED BLOOD COUNT 5.13 10^6/uL (4.00-5.40); WHITE BLOOD COUNT 8.7 10^3/uL (4.0-10.0)
[2019-02-22 13:38] VITALS: BP 126/59
[2019-02-22 13:43] VITALS: BP 126/59
[2019-02-22 13:56] LABS: ALBUMIN 3.6 GM/DL (3.2-5.2); ALT/SGPT 31 U/L (12-78); BILIRUBIN,DIRECT 0.2 MG/DL (0.0-0.2); BILIRUBIN,TOTAL 0.5 MG/DL (0.2-1.0); BLOOD UREA NITROGEN 12 MG/DL (7-18); CALCIUM LEVEL 9.3 MG/DL (8.5-10.1); CARBON DIOXIDE LEVEL 30 MEQ/L (21-32); CHLORIDE LEVEL 100 MEQ/L (98-107); CPK CREATINE PHOSPHOKINASE 423 U/L (26-192); CREATININE FOR GFR 0.82 MG/DL (0.55-1.30); FREE T4 1.71 NG/DL (0.76-1.46); GLOMERULAR FILTRATION RATE > 60.0 (>51); GLUCOSE, FASTING 120 MG/DL (70-100); LIPASE 198 U/L (73-393); POTASSIUM SERUM 3.6 MEQ/L (3.5-5.1); SODIUM LEVEL 140 MEQ/L (136-145); THYROID STIMULATING HORMONE 0.627 uIU/ML (0.358-3.740); TROPONIN I 0.05 NG/ML (< 0.10)
[2019-02-22 14:08] LABS: INR 0.99; PROTHROMBIN TIME 13.2 SECONDS (12.1-14.4)
[2019-02-22 14:09] LABS: PARTIAL THROMBOPLASTIN TIME 25.9 SECONDS (25.4-37.6)
--- NOTE | 2019-02-22 21:08 | ECGEPIP ---
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
== END 2019-02-22 13:43 | disposition short-term general hospital (02) ==
LOC: M ED 12:55
DX: I21.19 ST elevation (STEMI) myocardial infarction involving other coronary artery of inferior wall (principal); I25.2 Old myocardial infarction; I10 Essential (primary) hypertension; E78.5 Hyperlipidemia, unspecified; J44.9 Chronic obstructive pulmonary disease, unspecified; G47.30 Sleep apnea, unspecified; F17.210 Nicotine dependence, cigarettes, uncomplicated; Z88.0 Allergy status to penicillin; Z79.51 Long term (current) use of inhaled steroids; Z79.82 Long term (current) use of aspirin; Z79.899 Other long term (current) drug therapy; Z95.5 Presence of coronary angioplasty implant and graft
CPT/HCPCS: 71045; 80048; 80076; 82550; 82553; 83690; 84439; 84443; 84484; 85025; 85610; 85730; 93005; 93041; 94640; 94760; 96374; 96375; 99291; J2405; J3101

== ENCOUNTER → 2019-04-13 | Outpatient (CLI) | payer OTHER ==
[~2019-04-13] MED LIST changes: -OMEP20CA3 PO; +OMEP20CA4 PO
--- NOTE | 2019-04-13 10:53 | REP ---
PA and lateral chest: Comparison is 03/23/2017. The lung salgado are clear. Cardiac size is borderline enlarged, unchanged. The james, mediastinum, skeletal structures are unremarkable. Impression: Chronic borderline cardiomegaly. Otherwise, negative PA and lateral chest. Electronically Signed by Rolo Herring MD 04/13/2019 10:45 A
== END ==
LOC: M SMT 10:23
PROVIDERS: ATTEND Family Medicine
DX: J40 Bronchitis, not specified as acute or chronic (principal)
CPT/HCPCS: 71046; G0463

== ENCOUNTER → 2019-08-05 | Outpatient (CLI) | payer OTHER ==
[~2019-08-05] MED LIST changes: +OMEP-358 PO; -OMEP20TA PO; -OMEP40CA2 PO; +OMEP40CA97 PO; +ZETI10TA16 PO; -ZETI10TA30 PO
--- NOTE | 2019-08-05 13:01 | REPMRS ---
Patient History The patient states she has not had a clinical breast exam in over a year. No known family history of cancer. Digital Mammo Screening Bilat: August 05, 2019 - Exam #: [id number] Bilateral CC and MLO view(s) were taken. Technologist: Jayna Hernandez, Technologist Prior study comparison: August 19, 2017, digital woman screen mammo, performed at [facility]. March 16, 2014, digital woman screen mammo, performed at [facility]. July 16, 2012, digital woman screen mammo, performed at [facility]. FINDINGS: There are scattered fibroglandular densities. There has been no change in the appearance of the mammogram from the prior studies. There is a mild amount of scattered fibroglandular density which is fairly symmetric. There is no interval development of dominant mass, architectural distortion, or grouped microcalcification suggestive of malignancy. Assessment: BI-RADS/ACR category 1 mammogram. Negative Mammogram. Recommendation Routine screening mammogram of both breasts in 1 year (for women over age 40). This patient's Lifetime Breast Cancer Risk is estimated at 6.9 %. This mammogram was interpreted with the aid of an FDA-approved computer-aided dectection system. Electronically Signed By: Louis Henriquez MD 08/05/19 1300
== END ==
LOC: M RAD 11:28
PROVIDERS: ATTEND Family Medicine
DX: Z12.31 Encounter for screening mammogram for malignant neoplasm of breast (principal)

== ENCOUNTER 2020-02-21 11:16 | Emergency (ER) | payer OTHER ==
[~2020-02-21] VITALS: Ht 162.6 cm; Wt 97.3 kg
[2020-02-21 11:16] VITALS: BP 133/60
[~2020-02-21 11:16] MED LIST changes: +OMEP1CAP73 PO; -OMEP20CA4 PO; -SIMV40TA2 PO; +SIMV40TA20 PO
[2020-02-21] MEDS ORDERED: PLAV1TAB2 PO (11:26)
[2020-02-21] MEDS ORDERED: NAPROXEN 250 MG TAB PO ONE (12:30)
--- NOTE | 2020-02-21 13:23 | REP ---
Clinical: Left forearm pain . Technique: Snider scale and color Doppler evaluation of the left upper extremity using linear high frequency transducer. Findings: Ultrasound examination of the left upper extremity deep venous structures including jugular, subclavian, axillary, basilic, brachial, and cephalic veins demonstrate normal flow characteristics and wave patterns. There is no evidence for deep venous thrombosis. Further evaluation at the site of maximal tenderness overlying the lateral aspect of the wrist demonstrates no significant abnormality. Impression: No evidence for deep venous thrombosis of the left upper extremity . Electronically Signed by Manolo Higuera MD 02/21/2020 01:14 P
--- NOTE | 2020-02-21 13:28 | REP ---
Clinical: Left wrist pain Technique: AP, lateral, bilateral oblique views. Findings: There is no evidence for acute fracture or dislocation. Subchondral sclerosis with joint space narrowing at the first and second carpometacarpal joints noted. No subcutaneous emphysema or foreign body. Impression: Mild arthritic changes at the first and second carpometacarpal joints. Electronically Signed by Manolo Higuera MD 02/21/2020 01:19 P
[2020-02-21] MEDS ORDERED: TRAM50TA2 PO (13:36)
== END 2020-02-21 13:43 | disposition home or self-care (01) ==
LOC: M ED 11:16
DX: M19.032 Primary osteoarthritis, left wrist (principal); Z88.0 Allergy status to penicillin; E78.00 Pure hypercholesterolemia, unspecified; I25.2 Old myocardial infarction; I25.10 Atherosclerotic heart disease of native coronary artery without angina pectoris; Z95.5 Presence of coronary angioplasty implant and graft; I11.0 Hypertensive heart disease with heart failure; I50.9 Heart failure, unspecified; J44.9 Chronic obstructive pulmonary disease, unspecified; G47.30 Sleep apnea, unspecified; K21.9 Gastro-esophageal reflux disease without esophagitis; Z79.82 Long term (current) use of aspirin; Z79.899 Other long term (current) drug therapy

== ENCOUNTER → 2020-08-21 | Outpatient (CLI) | payer OTHER ==
[~2020-08-21] MED LIST changes: -ASPI81TA85 PO; +ASPI81TA86 PO; +PANT40TA29 PO; -PANT40TA3 PO; +PLAV1TAB2 PO; +TRAM50TA2 PO
--- NOTE | 2020-08-21 09:37 | REP ---
INDICATION: LUNG CANCER SCREENING COMPARISON: 11/22/2016 TECHNIQUE: Axial noncontrast images from the thoracic inlet to the upper abdomen using low-dose lung screening technique (LDCT). FINDINGS: Bilateral lung salgado are well aerated and clear. No consolidation, suspicious nodule or mass lesion. No pleural effusion. No pneumothorax. Tracheobronchial tree is patent. Mediastinal adenopathy is again noted and of uncertain clinical significance. Moderate to significant atherosclerotic changes to the thoracic aorta and coronary arteries unchanged. IMPRESSION: 1. Lung-RADS category 1. Management recommendations include annual low-dose CT surveillance. 2. Findings suggesting stable mediastinal adenopathy as compared to 2017 of uncertain clinical significance or etiology. 3. Moderate to significant atherosclerotic disease. <Electronically signed by Manolo Higuera > 08/21/20 0961
== END ==
LOC: M RAD 08:08
PROVIDERS: ATTEND Nurse Practitioner Family
DX: Z12.2 Encounter for screening for malignant neoplasm of respiratory organs (principal); F17.218 Nicotine dependence, cigarettes, with other nicotine-induced disorders; I70.0 Atherosclerosis of aorta; I25.10 Atherosclerotic heart disease of native coronary artery without angina pectoris; R59.0 Localized enlarged lymph nodes

== ENCOUNTER 2021-01-07 17:46 | Observation (INO) | payer OTHER ==
[~2021-01-07] VITALS: Ht 162.6 cm; Wt 92.5 kg
[2021-01-07] MEDS ORDERED: ATOR80TA59 PO (18:06)
[2021-01-07] MEDS ORDERED: COMBIVENT RESPIMAT 100-20MCG INHALER 4GM INH ONE (18:25)
[2021-01-07 18:29] LABS: VENOUS BASE EXCESS 0.1 (-2.0-2.0); VENOUS HCO3 24.1 MEQ/L (23.0-27.0); VENOUS O2 SATURATION 92.2 % (60.0-80.0); VENOUS PARTIAL PRESSURE CO2 37.1 mmHg (38.0-50.0); VENOUS PARTIAL PRESSURE O2 61.9 mmHg (30.0-50.0); VENOUS STANDARD HCO3 24.4 MEQ/L; VENOUS TOTAL CO2 25.2 MEQ/L (24.0-28.0)
[2021-01-07 18:34] LABS: BASO % 0.6 % (0.0-1.0); EOS # 0.1 10^3/uL (0.0-0.5); EOS % 1.3 % (0.0-3.0); HEMATOCRIT 39.8 % (36.0-47.0); HEMOGLOBIN 12.7 g/dl (12.0-15.5); LYMPH % 28.8 % (24.0-44.0); MEAN CORPUSCULAR HEMOGLOBIN 26.6 pg (27.0-33.0); MEAN CORPUSCULAR HGB CONC 31.9 g/dl (32.0-36.5); MEAN CORPUSCULAR VOLUME 83.4 fl (80.0-96.0); MONO # 0.7 10^3/uL (0.0-0.8); MONO % 9.7 % (2.0-8.0); NEUTROPHILS # 4.1 10^3/uL (1.5-8.5); NEUTROPHILS % 59.3 % (36.0-66.0); PLATELET COUNT, AUTOMATED 142 10^3/uL (150-450); RED BLOOD COUNT 4.77 10^6/uL (4.00-5.40)
--- NOTE | 2021-01-07 18:35 | REP ---
INDICATION: DYSPNEA/COUGH. COMPARISON: 04/13/2019. TECHNIQUE: SINGLE PORTABLE AP VIEW OF THE CHEST WAS PERFORMED. FINDINGS: There is mild cardiomegaly. There is vascular congestion and diffuse interstitial edema. There is calcification of the thoracic aorta. The mediastinal silhouette is unchanged. There are degenerative changes of the spine. IMPRESSION: Mild cardiomegaly. Vascular congestion and diffuse interstitial edema. <Electronically signed by Rolo Snider > 01/07/21 [id number]
[2021-01-07] MEDS ORDERED: FUROSEMIDE 40MG/4ML VIAL (J1940) IV ONE (18:40)
[2021-01-07 18:44] LABS: INR 1.03; PROTHROMBIN TIME 13.7 SECONDS (12.5-14.3)
[2021-01-07 18:52] LABS: ABG BASE EXCESS 0.6 (-2.0-2.0); ABG HCO3 24.7 MEQ/L (22.0-26.0); ABG O2 SATURATION 93.9 % (95.0-99.0); ABG PARTIAL PRESSURE CO2 37.7 mmHg (35.0-45.0); ABG PARTIAL PRESSURE O2 68.6 mmHg (75.0-100.0); ABG TOTAL CO2 25.8 MEQ/L (22.0-29.0); ABG pH (ARTERIAL) 7.434 UNITS (7.350-7.450)
[2021-01-07 19:07] LABS: ALT/SGPT 21 U/L (12-78); BILIRUBIN,DIRECT 0.2 MG/DL (0.0-0.2); BILIRUBIN,TOTAL 0.6 MG/DL (0.2-1.0); BLOOD UREA NITROGEN 8 MG/DL (7-18); CALCIUM LEVEL 9.6 MG/DL (8.5-10.1); CARBON DIOXIDE LEVEL 25 MEQ/L (21-32); CHLORIDE LEVEL 106 MEQ/L (98-107); CK-MB VALUE MASS 2.3 NG/ML (<3.6); CPK CREATINE PHOSPHOKINASE 76 U/L (26-192); CREATININE FOR GFR 0.61 MG/DL (0.55-1.30); GLOMERULAR FILTRATION RATE > 60.0 (>51); GLUCOSE, FASTING 107 MG/DL (70-100); MB/CK RELATIVE INDEX 3.03 (< OR =4); NT-PRO BNP 1096 PG/ML (<125); POTASSIUM SERUM 3.3 MEQ/L (3.5-5.1); SODIUM LEVEL 138 MEQ/L (136-145); TROPONIN I < 0.02 NG/ML (< 0.10)
[2021-01-07] MEDS ORDERED: POTASSIUM CHLORIDE 10 MEQ SR TABLET PO ONE ×2 (19:15→20:20)
[2021-01-07] MEDS ORDERED: ASPI81CH33 PO (19:30)
[2021-01-07] MEDS ORDERED: D31000TA2 PO (19:30)
[2021-01-07] MEDS ORDERED: ALBU83IN PO (19:30)
[2021-01-07] MEDS ORDERED: FURO40TA2 PO (19:30)
[2021-01-07] MEDS ORDERED: OMEP-218 PO (19:30)
[2021-01-07] MEDS ORDERED: METO1TAB33 PO (19:30)
[2021-01-07] MEDS ORDERED: ALBUTEROL SULFATE 2.5 MG/0.5 ML INH NEB SOLN INH PRN (20:00)
[2021-01-07] MEDS ORDERED: ALBUTEROL 90 MCG/ACT 8GM HFA INHALER INH PRN (20:00)
[2021-01-07] MEDS: ADVAIR HFA 115/21MCG INHALER INH SCH (20:00)
[2021-01-07] MEDS ORDERED: ACETAMINOPHEN TAB 650MG DOSE (2X325MG) PO PRN (20:10)
--- NOTE | 2021-01-07 20:21 | HPEPDOC ---
General Date of Admission 01/07/21 Date of Service: Jan 07, 2021 Chief Complaint The patient is a 60-year-old female admitted with a reason for visit of Shortness Of Breath. Source: Patient Exam Limitations: No limitations Timing/Duration: Day(s) History of Present Illness Patient is 60 years old female with past medical history of coronary artery diseases, [place] with stent placement in 2019, diastolic CHF, COPD presented to the hospital with increased shortness of breath. Patient stated that for past week she has been having increased shortness of breath with dizziness. She denied any fever, chills or nausea, vomiting. She stated that shortness of breath increased with exertion. Patient denied diarrhea or dysuria. She did not report cough or sputum production. In ER patient was found to have no leukocytosis, potassium 3.3, BNP 1096, lactic acid 1.5. Chest x-ray showed Mild cardiomegaly. Vascular congestion and diffuse interstitial edema. Home Medications Scheduled Aspirin (Aspirin) 81 Mg Tab.chew, 81 MG PO QHS, (Reported) Atorvastatin Calcium (Atorvastatin Calcium) 80 Mg Tablet, PO QHS, (Reported) Cholecalciferol (Vitamin D3) (Vitamin D3) 1,000 Unit Tablet, 1,000 UNITS PO QHS, (Reported) Fluticasone Propion/Salmeterol (Advair Hfa 115-21 Mcg Inhaler) 1 Aer Aer, 2 PUFF INH BID, (Reported) Furosemide (Furosemide) 40 Mg Tablet, 80 MG PO DAILY, (Reported) Metoprolol Succinate (Metoprolol Succinate) 100 Mg Tab.er.24h, 100 MG PO QHS, (Reported) Omeprazole (Omeprazole) 20 Mg Capsule.dr, 40 MG PO QHS, (Reported) Potassium Chloride (K-Tab ER) 10 Meq Tab, 10 MEQ PO QHS, (Reported) Scheduled PRN Albuterol Sulf (Albuterol Sulfate) 2.5 Mg/3 Ml Vial.neb, 2.5 MG PO Q4-6HP PRN for SHORTNESS OF BREATH, (Reported) Albuterol Sulfate (Proair Hfa) 108 Mcg/Act Aer, 1 PUFF INH QID PRN for SHORTNESS OF BREATH, (Reported) Allergies Coded Allergies: Penicillins (Verified Allergy, Unknown, 02/22/19) hives Past Medical History Medical History HYPERCHOLESTEROLEMIA DIABETES,BORDERLINE [place] Asthma, COPD, [place] with stent placement, coronary artery diseases, hypertension, CHF Surgical History KNEE SURGERY-LEFT D&C SINUS SURGERY HEART STENT, March. 80% BLOCKAGE TONSILLECTOMY PLANTAR WARTS REMOVED LEFT FOOT COLONOSCOPY WITH POLYP REMOVAL-BENIGN 2012 ENDOMETRIAL BIOSPY, MULTIPLE, VULVAR BX CARDIAC CATH ([facility]) 01/2019 A-FIB/CHADSVASC A-FIB History Current/History of A-Fib/PAF?: No Current PO Anticoag Therapy: No Review of Systems Constitutional: Denies: Chills, Fever Eyes: Denies: Pain ENT: Denies: Head Aches Skin: Denies: Rash, Lesions Pulmonary: Reports: Dyspnea; Denies: Cough Cardiovascular: Denies: Chest Pain, Palpitations Gastrointestinal: Denies: Nausea, Vomiting Genitourinary: Denies: Dysuria Hematologic: Denies: Bruising Endocrine: Denies: Polydipsia, Polyphagia Musculoskeletal: Denies: Neck Pain Neurological: Denies: Weakness Psych: Reports: Mood Normal Physical Examination General Exam: Positive: Alert, Cooperative Eye Exam: Positive: PERRLA ENT Exam: Positive: Atraumatic Neck Exam: Positive: Supple, JVD Chest Exam: Positive: Diminished; Negative: Wheezing Heart Exam: Positive: Rate Normal Telemetry: Positive: No significant arrhythmia Abdomen Exam: Positive: Normal bowel sounds Extremity Exam: Negative: Clubbing, Cyanosis Skin Exam: Positive: Nl turgor and temperature Neuro Exam: Positive: Strength at 5/5 X4 ext Psych Exam: Positive: Mental status NL Vital Signs Vital Signs Date Time Temp Pulse Resp B/P (MAP) Pulse Ox O2 Delivery O2 Flow Rate FiO2 01/07/21 20:00 87 20 130/64 (86) 94 Room Air 01/07/21 19:15 3.0 01/07/21 17:49 96.6 Laboratory Data Labs 24H Laboratory Tests 2 01/07/21 18:02: Immature Granulocyte % (Auto) 0.3, Neutrophils (%) (Auto) 59.3, Lymphocytes (%) (Auto) 28.8, Monocytes (%) (Auto) 9.7H, Eosinophils (%) (Auto) 1.3, Basophils (%) (Auto) 0.6, Neutrophils # (Auto) 4.1, Lymphocytes # (Auto) 2.0, Monocytes # (Auto) 0.7, Eosinophils # (Auto) 0.1, Basophils # (Auto) 0.0, Nucleated Red Blood Cells % (auto) 0.0, Prothrombin Time 13.7, Prothromb Time International Ratio 1.03, Anion Gap 7L, Glomerular Filtration Rate > 60.0, Lactic Acid Level 1.5, Calcium Level 9.6, Total Bilirubin 0.6, Direct Bilirubin 0.2, Aspartate Amino Transf (AST/SGOT) 14, Alanine Aminotransferase (ALT/SGPT) 21, Alkaline Phosphatase 98, Total Creatine Kinase 76, Creatine Kinase MB 2.3, Creatine Kinase MB Relative Index 3.03, Troponin I < 0.02, YZ-Sxd-[id number]-Type Natriuretic Peptide 1096H, Total Protein 7.0, Albumin 3.0L, Albumin/Globulin Ratio 0.8L, Thyroid Stimulating Hormone (TSH) 0.680 01/07/21 18:09: Blood Gas Bicarbonate Standard 24.4, Venous Blood pH 7.430, Venous Blood Partial Pressure CO2 37.1L, Venous Blood Partial Pressure O2 61.9H, Venous Blood Total Carbon Dioxide 25.2, Venous Blood HCO3 24.1, Venous Blood Oxygen Saturation 92.2H, Venous Blood Base Excess 0.1 01/07/21 18:38: Blood Gas Bicarbonate Standard 25.0, Arterial Blood pH 7.434, Arterial Blood Partial Pressure CO2 37.7, Arterial Blood Partial Pressure O2 68.6L, Arterial Blood Total CO2 25.8, Arterial Blood HCO3 24.7, Arterial Blood Base Excess 0.6, Arterial Blood Oxygen Saturation 93.9L CBC/BMP Laboratory Tests 01/07/21 18:02 Microbiology Microbiology 01/07/21 Respiratory Virus Panel (PCR) ([facility]), Received Pending Assessment/Plan Patient is 60 years old female with past medical history of coronary artery diseases, [place] with stent placement in 2019, diastolic CHF, COPD presented to the hospital with increased shortness of breath. Patient stated that for past week she has been having increased shortness of breath with dizziness. She denied any fever, chills or nausea, vomiting. She stated that shortness of breath increased with exertion. Patient denied diarrhea or dysuria. She did not report cough or sputum production. In ER patient was found to have no leukocytosis, potassium 3.3, BNP 1096, lactic acid 1.5. Chest x-ray showed Mild cardiomegaly. Vascular congestion and diffuse interstitial edema. Problems (1) Hypokalemia Status: Acute Problem Text: Replaced (2) Dyspnea Status: Acute Problem Text: Secondary to CHF exacerbation Echo Cardiac diet I's and O's Lasix IV (3) Congestive heart failure (CHF) Status: Acute (4) COPD (chronic obstructive pulmonary disease) Status: Chronic Problem Text: Not in acute exacerbation Continue home inhalers Plan / VTE VTE Prophylaxis Ordered?: Yes CASH JUAN DO Jan 07, 2021 20:21
[2021-01-07 20:55] VITALS: BP 128/58
[2021-01-07] MEDS ORDERED: VITAMIN D 1,000 INTERNATIONAL UNITS TABLET PO SCH (21:00)
[2021-01-07] MEDS ORDERED: POTASSIUM CHLORIDE 10 MEQ SR TABLET PO SCH (21:00)
[2021-01-07] MEDS ORDERED: OMEPRAZOLE 20 MG CAP PO SCH (21:00)
[2021-01-07] MEDS ORDERED: ATORVASTATIN 20 MG TAB PO SCH (21:00)
[2021-01-07] MEDS ORDERED: METOPROLOL SUCC (TopROL XL) 100MG *XL* TAB PO SCH (21:00)
[2021-01-07] MEDS ORDERED: ASPIRIN 81 MG CHEW TABLET PO SCH (21:00)
[2021-01-07 21:09] VITALS: O2SAT 98
[2021-01-07 22:29] VITALS: BP 116/73
[2021-01-07] MEDS: FUROSEMIDE 40MG/4ML VIAL (J1940) IV SCH (23:25)
[2021-01-08 06:00] VITALS: BP 103/58
--- NOTE | 2021-01-08 06:32 | ECGEPIP ---
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
[2021-01-08 06:51] LABS: HEMATOCRIT 39.9 % (36.0-47.0); HEMOGLOBIN 12.7 g/dl (12.0-15.5); MEAN CORPUSCULAR HEMOGLOBIN 26.8 pg (27.0-33.0); MEAN CORPUSCULAR HGB CONC 31.8 g/dl (32.0-36.5); MEAN CORPUSCULAR VOLUME 84.4 fl (80.0-96.0); PLATELET COUNT, AUTOMATED 129 10^3/uL (150-450); RED BLOOD COUNT 4.73 10^6/uL (4.00-5.40)
[2021-01-08] MEDS: ADVAIR HFA 115/21MCG INHALER INH SCH (07:12)
[2021-01-08 07:23] LABS: ALT/SGPT 22 U/L (12-78); BILIRUBIN,TOTAL 0.8 MG/DL (0.2-1.0); BLOOD UREA NITROGEN 7 MG/DL (7-18); CALCIUM LEVEL 10.3 MG/DL (8.5-10.1); CARBON DIOXIDE LEVEL 30 MEQ/L (21-32); CHLORIDE LEVEL 107 MEQ/L (98-107); CREATININE FOR GFR 0.55 MG/DL (0.55-1.30); GLOMERULAR FILTRATION RATE > 60.0 (>51); GLUCOSE, FASTING 90 MG/DL (70-100); MAGNESIUM LEVEL 1.9 MG/DL (1.8-2.4); POTASSIUM SERUM 4.4 MEQ/L (3.5-5.1); SODIUM LEVEL 140 MEQ/L (136-145); TOTAL PROTEIN 6.9 GM/DL (6.4-8.2)
[2021-01-08] MEDS: FUROSEMIDE 40MG/4ML VIAL (J1940) IV SCH (08:44)
[2021-01-08] MEDS ORDERED: ENOXAPARIN 40MG/0.4ML SYRINGE (J1650 PER 10MG) SC SCH (09:00)
--- NOTE | 2021-01-08 15:00 | DS.PDOC ---
Discharge Summary General Date of Admission Jan 07, 2021 at 17:47 Date of Discharge 01/08/2021 Primary Care Physician: Meg Menjivar MD Attending Physician: PRITESH ALVARENGA MD Discharge Summary PROCEDURES PERFORMED DURING STAY: [None]. ADMITTING DIAGNOSES: 1. Hypokalemia 2. dyspnea 3. CHF 4. COPD DISCHARGE DIAGNOSES: 1. Dyspnea, likely 2/2 CHF 2. Hypokalemia, resolved 3. COPD 4. MELANY 5. CAD 6. HLD COMPLICATIONS/CHIEF COMPLAINT: Chf,Dyspnea. HISTORY OF PRESENT ILLNESS: Patient is a 60 y/o F with past MHx of CAD (s/p 1x stent in 03/2009, negative cath in 2018), diastolic CHF (last documented echo 07/13/2020, LVEF 70% with grade 1 left ventricular diastolic dysfunction), COPD (no home O2 use). MELANY (has home CPAP use), HLD and GERD, presenting to the ED with increased SOB since Friday. Patient noted SOB and dizziness at work on Friday that has been gradually worsening over the weekend. On Friday, her dyspnea was so severe that she can't walk 10ft to the bathroom or climb a flight of stairs, which prompted her ED visit. Patient denied associated fever, chills, leg swelling, orthopnea, N/V/D and urinary symptoms. Patient was found with BNP 1096 and potassium of 3.3, and patient was subsequently admitted for CHF exacerbation. HOSPITAL COURSE: After her admission, patient was treated with 2x 40mg IV lasix overnight and 40mEq potassium PO. She was diuresed 3950cc during her admission. Patient responded well with treatment and reported improvement in her dyspnea and dizziness. Overnight, nursing staff reported pt's oxygen desaturated during her sleep and was subsequently started on 2L/min O2 via NC. Her desaturation was attributed to her MELANY and her CPAP being unavailable during her stay. Patient was weaned off O2 and subsequently discharged. Of note, patient reported that she and her family habitually chewing on ice suggestive of pica. Patient's H&H was stable during her hospital stay and will require outpatient workup. Echocardiogram was not done during this admission because patient recently had echo with Dr. Good (Cardiology) on 07/13/2020 and interpretation summary as follow: "Normal LV size with moderate left ventricular hypertrophy and normal LV systolic function, estimated EF around 70%. Right ventricle is not enlarged. Aortic sclerosis but no significant stenosis or insufficiency. Very prominent degenerative abnormalities of mitral valve with functionally moderate stenosis and no significant insufficiency. Likely normal central venous pressure. Unable to estimate pulmonary artery pressure. No evidence for LVOT gradient." Patient was also continued on her other home regimen for HLD, GERD, COPD and CAD during her hospital stay. DISCHARGE MEDICATIONS: Please see below. ALLERGIES: Please see below. PHYSICAL EXAMINATION ON DISCHARGE: VITAL SIGNS: See below GENERAL APPEARANCE: Revealed 60 y/o F who appears as stated age, laying on bed with head of bed slightly elevated, alert & oriented x3, in no Acute Distress. HEENT Exam: Normocephalic and atraumatic, PERRLA, conjunctiva & lids normal, EOMI, without sclera icteric, mucous membr. moist/pink, pharynx normal, nares patent. NC noted at 2L/min. NECK: Supple without lymphadenopathy and thyromegaly, but JVD noted. LUNGS: Clear to auscultation bilaterally with full breath sounds without rales, wheezing, and crackles. CARDIOVASCULAR: Regular rate and rhythm, normal S1 & S2 without gallops, murmurs, rubs TELEMETRY: 93% O2 sat with NC at 2L/min, HR 64bpm ABDOMEN: Soft, non-tender, non-distended with normal bowel sounds. No masses or ecchymosis or hepatosplenomegaly. EXTREMITIES: 2+ pulses in upper extremities, 1+ B/L DP pulses with capillary refill <2 seconds. No clubbing, cyanosis, edema, tenderness SKIN: Normal turgor and temperature. No rash, lesion MUSCULOSKELETAL: Strength +5/5 in all extremities without tenderness. NEUROLOGICAL: Normal gait and cranial nerves III-XII normal. No signs of gross focal neurological deficit. PSYCHIATRIC: Normal mood and affect LABORATORY DATA: Please see below. IMAGIN. Portable CXR 01/07/2021 IMPRESSION: Mild cardiomegaly. Vascular congestion and diffuse interstitial edema. PROGNOSIS: Fair ACTIVITY: As tolerated. DIET: 2 gm sodium diet DISPOSITION: discharge home DISCHARGE INSTRUCTIONS: 1. Please follow up with your primary care physician in 1 week 2. If your symptoms recur or worsen, please visit emergency room for evaluation. ITEMS TO FOLLOWUP ON ON OUTPATIENT: 1. None DISCHARGE CONDITION: Stable TIME SPENT ON DISCHARGE: Greater than 25 minutes. Vital Signs/I&Os Vital Signs Date Time Temp Pulse Resp B/P (MAP) Pulse Ox O2 Delivery O2 Flow Rate FiO2 01/08/21 09:00 1.0 01/08/21 06:00 96.9 65 20 103/58 (73) 95 Nasal Cannula I&O- Last 24 Hours up to 6 AM 01/08/21 06:00 Intake Total 450 ml Output Total 3100 ml Balance -2650 ml Laboratory Data Labs 24H Laboratory Tests 2 01/07/21 18:02: Immature Granulocyte % (Auto) 0.3, Neutrophils (%) (Auto) 59.3, Lymphocytes (%) (Auto) 28.8, Monocytes (%) (Auto) 9.7H, Eosinophils (%) (Auto) 1.3, Basophils (%) (Auto) 0.6, Neutrophils # (Auto) 4.1, Lymphocytes # (Auto) 2.0, Monocytes # (Auto) 0.7, Eosinophils # (Auto) 0.1, Basophils # (Auto) 0.0, Nucleated Red Blood Cells % (auto) 0.0, Prothrombin Time 13.7, Prothromb Time International Ratio 1.03, Anion Gap 7L, Glomerular Filtration Rate > 60.0, Lactic Acid Level 1.5, Calcium Level 9.6, Total Bilirubin 0.6, Direct Bilirubin 0.2, Aspartate Amino Transf (AST/SGOT) 14, Alanine Aminotransferase (ALT/SGPT) 21, Alkaline Phosphatase 98, Total Creatine Kinase 76, Creatine Kinase MB 2.3, Creatine Kinase MB Relative Index 3.03, Troponin I < 0.02, VO-Ymn-G-Type Natriuretic Peptide 1096H, Total Protein 7.0, Albumin 3.0L, Albumin/Globulin Ratio 0.8L, Thyroid Stimulating Hormone (TSH) 0.680 01/07/21 18:09: Blood Gas Bicarbonate Standard 24.4, Venous Blood pH 7.430, Venous Blood Partial Pressure CO2 37.1L, Venous Blood Partial Pressure O2 61.9H, Venous Blood Total Carbon Dioxide 25.2, Venous Blood HCO3 24.1, Venous Blood Oxygen Saturation 92.2H, Venous Blood Base Excess 0.1 01/07/21 18:38: Blood Gas Bicarbonate Standard 25.0, Arterial Blood pH 7.434, Arterial Blood Partial Pressure CO2 37.7, Arterial Blood Partial Pressure O2 68.6L, Arterial Blood Total CO2 25.8, Arterial Blood HCO3 24.7, Arterial Blood Base Excess 0.6, Arterial Blood Oxygen Saturation 93.9L 01/08/21 06:39: Nucleated Red Blood Cells % (auto) 0.0, Anion Gap 3L, Glomerular Filtration Rate > 60.0, Calcium Level 10.3H, Total Bilirubin 0.8, Aspartate Amino Transf (AST/SGOT) 13, Alanine Aminotransferase (ALT/SGPT) 22, Alkaline Phosphatase 90, Total Protein 6.9, Albumin 3.0L, Albumin/Globulin Ratio 0.8L, Magnesium Level 1.9 CBC/BMP Laboratory Tests 01/07/21 18:02 01/08/21 06:39 Microbiology Microbiology 01/07/21 Respiratory Virus Panel (PCR) ([facility]) - Final, Complete Discharge Medications Scheduled Aspirin (Aspirin) 81 Mg Tab.chew, 81 MG PO QHS, (Reported) Atorvastatin Calcium (Atorvastatin Calcium) 80 Mg Tablet, PO QHS, (Reported) Cholecalciferol (Vitamin D3) (Vitamin D3) 1,000 Unit Tablet, 1,000 UNITS PO QHS, (Reported) Fluticasone Propion/Salmeterol (Advair Hfa 115-21 Mcg Inhaler) 1 Aer Aer, 2 PUFF INH BID, (Reported) Furosemide (Furosemide) 40 Mg Tablet, 80 MG PO DAILY, (Reported) Metoprolol Succinate (Metoprolol Succinate) 100 Mg Tab.er.24h, 100 MG PO QHS, (Reported) Omeprazole (Omeprazole) 20 Mg Capsule.dr, 40 MG PO QHS, (Reported) Potassium Chloride (K-Tab ER) 10 Meq Tab, 10 MEQ PO QHS, (Reported) Scheduled PRN Albuterol Sulf (Albuterol Sulfate) 2.5 Mg/3 Ml Vial.neb, 2.5 MG PO Q4-6HP PRN for SHORTNESS OF BREATH, (Reported) Albuterol Sulfate (Proair Hfa) 108 Mcg/Act Aer, 1 PUFF INH QID PRN for SHORTNESS OF BREATH, (Reported) Allergies Coded Allergies: Penicillins (Verified Allergy, Unknown, 02/22/19) hives GME ATTESTATION GME ATTESTATION My faculty preceptor for this patient encounter was physically present during the encounter and was fully available. All aspects of the patient interview, examination, medical decision making process, and medical care plan development were reviewed and approved by the faculty preceptor. The faculty preceptor is aware and concurs with the plan as stated in the body of this note and will attest to such by his/her cosignature. LEIA GALLAGHER OMS-3 Jan 08, 2021 11:39
== END 2021-01-08 13:44 | disposition home or self-care (01) ==
LOC: M ED 17:46 → M ED INP 17:47 → ENRESERV 21:31 → M MSPAV 22:29
PROVIDERS: ADMIT Internal Medicine; ATTEND Internal Medicine
DX: R06.00 Dyspnea, unspecified (principal); I50.30 Unspecified diastolic (congestive) heart failure; I11.9 Hypertensive heart disease without heart failure; J44.9 Chronic obstructive pulmonary disease, unspecified; G47.33 Obstructive sleep apnea (adult) (pediatric); I25.10 Atherosclerotic heart disease of native coronary artery without angina pectoris; E78.49 Other hyperlipidemia; K21.9 Gastro-esophageal reflux disease without esophagitis; Z98.61 Coronary angioplasty status; Z79.82 Long term (current) use of aspirin; Z79.899 Other long term (current) drug therapy; Z88.0 Allergy status to penicillin; I25.2 Old myocardial infarction; F17.218 Nicotine dependence, cigarettes, with other nicotine-induced disorders
CPT/HCPCS: 36415; 36600; 71045; 80048; 80053; 80076; 82550; 82553; 82803; 83605; 83735; 83880; 84443; 84484; 85025; 85027; 85610; 87798; 93005; 93041; 94640; 94664; 94760; 96374; 96376; 99285; J1650; J1940

== ENCOUNTER 2021-02-04 20:37 | Inpatient (IN) | payer OTHER ==
[~2021-02-04] VITALS: Ht 162.6 cm; Wt 88.3 kg
[~2021-02-04 20:37] MED LIST changes: +ALBU83IN PO; +ASPI81CH33 PO; +ATOR80TA59 PO; +D31000TA2 PO; +FURO40TA2 PO; +OMEP-218 PO
[2021-02-04 21:00] LABS: BASO # 0.1 10^3/uL (0.0-0.2); BASO % 0.3 % (0.0-1.0); EOS % 0.1 % (0.0-3.0); HEMATOCRIT 42.9 % (36.0-47.0); HEMOGLOBIN 13.7 g/dl (12.0-15.5); LYMPH # 1.2 10^3/uL (1.5-5.0); LYMPH % 7.6 % (24.0-44.0); MEAN CORPUSCULAR HEMOGLOBIN 26.5 pg (27.0-33.0); MEAN CORPUSCULAR HGB CONC 31.9 g/dl (32.0-36.5); MONO # 1.2 10^3/uL (0.0-0.8); MONO % 7.5 % (2.0-8.0); NEUTROPHILS # 13.6 10^3/uL (1.5-8.5); PLATELET COUNT, AUTOMATED 187 10^3/uL (150-450); RED BLOOD COUNT 5.17 10^6/uL (4.00-5.40); WHITE BLOOD COUNT 16.2 10^3/uL (4.0-10.0)
[2021-02-04] MEDS: COMBIVENT RESPIMAT 100-20MCG INHALER 4GM INH SCH ×2 (21:12→21:30)
[2021-02-04 21:27] LABS: ALBUMIN 3.5 GM/DL (3.2-5.2); ALT/SGPT 19 U/L (12-78); BILIRUBIN,DIRECT 0.4 MG/DL (0.0-0.2); BILIRUBIN,TOTAL 1.3 MG/DL (0.2-1.0); BLOOD UREA NITROGEN 8 MG/DL (7-18); CALCIUM LEVEL 11.2 MG/DL (8.5-10.1); CARBON DIOXIDE LEVEL 25 MEQ/L (21-32); CHLORIDE LEVEL 102 MEQ/L (98-107); CPK CREATINE PHOSPHOKINASE 66 U/L (26-192); CREATININE FOR GFR 0.56 MG/DL (0.55-1.30); GLOMERULAR FILTRATION RATE > 60.0 (>51); GLUCOSE, FASTING 140 MG/DL (70-100); MB/CK RELATIVE INDEX 1.52 (< OR =4); NT-PRO BNP 2265 PG/ML (<125); POTASSIUM SERUM 3.6 MEQ/L (3.5-5.1); SODIUM LEVEL 134 MEQ/L (136-145); TROPONIN I < 0.02 NG/ML (< 0.10)
--- NOTE | 2021-02-04 21:46 | REPVR ---
PROCEDURE INFORMATION: Exam: XR Chest Exam date and time: 02/04/2021 9:11 PM Age: 60 years old Clinical indication: Cough and dyspnea; Additional info: Dyspnea/cough TECHNIQUE: Imaging protocol: XR of the chest. Views: 1 view. COMPARISON: [place] PORTABLE CHEST X-RAY 01/07/2021 6:11 PM FINDINGS: Lungs: Increased pulmonary vascular markings. Pleural spaces: Unremarkable. No pleural effusion. No pneumothorax. Heart/Mediastinum: Unremarkable. No cardiomegaly. Bones/joints: Unremarkable. IMPRESSION: Increased pulmonary vascular markings. Findings suggest pulmonary edema. Electronically signed by: Mitch Dumont On 02/04/2021 21:46:13 PM
[2021-02-04] MEDS ORDERED: FUROSEMIDE 100MG/10ML VIAL (J1940) IV ONE (22:10)
[2021-02-05] MEDS ORDERED: ANOR1AER PO (00:31)
[2021-02-05] MEDS ORDERED: FERR325T18 PO (00:33)
[2021-02-05] MEDS ORDERED: VITA500T9 PO (00:33)
[2021-02-05] MEDS ORDERED: MOM 30ML SUSPENSION UDC PO PRN (01:25)
[2021-02-05] MEDS ORDERED: MAALOX 30 ML SUSP *UDC PO PRN (01:25)
[2021-02-05] MEDS ORDERED: ACETAMINOPHEN TAB 650MG DOSE (2X325MG) PO PRN (01:25)
[2021-02-05] MEDS ORDERED: ALBUTEROL 90 MCG/ACT 8GM HFA INHALER INH PRN (01:35)
--- NOTE | 2021-02-05 01:51 | HPEPDOC ---
[facility] Medical History & Physical Date of Admission February 05, 2021 Date of Service: February 05, 2021 History and Physical CHIEF COMPLAINT: Shortness of breath HISTORY OF PRESENT ILLNESS: 60-year-old female history of COPD and congestive heart failure, CAD with stenting, who presents due to progressive shortness of breath. Patient tells me that she started feeling short of breath approximately 2 weeks ago and it has been getting progressively worse however over the past 24 hours she felt it was significantly worse she was unable to which prompted her to come to the emergency department. She tells me she started noticing a cough but no sputum production. Tells me the cough started yesterday and has resolved as of today. On review of systems she denies a fever or chills denies any chest pain. Denies any abdominal pain denies dysuria. Endorses mild lower extremity swelling. Patient was recently admitted on January 07 for CHF exacerbation. Tells me sometimes she forgets to take her Lasix and has to go back home to get it. She considered this morning taking an accident dose of Lasix to help with her shortness of breath but she ultimately decided not to and to come to the hospital instead. In the emergency department patient was given IV Lasix and given supplement oxygen with improvement of her symptoms. BNP was elevated and chest x-ray was suggestive of CHF. CHF. Patient will be admitted to the medical service for further workup and management of suspected congestive heart failure exacerbation. PAST MEDICAL/SURGICAL HISTORY: CAD with stenting 2018 Diastolic CHF COPD MELANY on CPAP at night Prediabetic Hyperlipidemia Hypertension Left knee surgery D&C Heart stent placement Tonsillectomy SOCIAL HISTORY: Denies alcohol use Denies tobacco use Denies illicit drug use FAMILY HISTORY: Reviewed and none contributory to this admission ALLERGIES: Please see below. REVIEW OF SYSTEMS: 10 point review of systems complete all negative otherwise stated in HPI HOME MEDICATIONS: Please see below. PHYSICAL EXAMINATION: Constitutional: Awake and alert, in no apparent distress ENT: Sclera are clear. Mucosa is moist. Respiratory: Lungs diminished breath sounds bilaterally with crackles left >right. No wheezing. No respiratory distress. No use of accessory muscles. Saturating 98% on 5 L oxygen. Cardiovascular: Regular heart rate and rhythm Gastrointestinal: Abdomen is soft, non distended, non tender, BS present. Musculoskeletal: 1+ lower extremity edema. Neurologic: No focal neurological deficit. Mental Status: A&O x3, normal affect Skin: No visible rashes. LABORATORY DATA: See below. IMAGING: See chart MICROBIOLOGY: Please see below. ASSESSMENT # Acute respiratory failure with hypoxia # Acute on chronic congestive heart failure with preserved ejection fraction PLAN Admit patient to PCU with telemetry monitoring. For her acute on chronic congestive heart failure we will diurese with IV Lasix. Monitor ins and outs. Restrict fluid intake. Early weights. Cardiac diet. We are recent echo. Her COPD is not an exacerbation and we can continue her home inhalers as needed May use own CPAP for EMLANY Continue aspirin and statin for CAD Continue home medications for chronic medical problems DVT prophylaxis with Lovenox [facility] Vital Signs Vital Signs Date Time Temp Pulse Resp B/P (MAP) Pulse Ox O2 Delivery O2 Flow Rate FiO2 02/05/21 00:16 106 19 92 Nasal Cannula 5.0 02/05/21 00:15 118/61 (80) 02/04/21 22:16 98.3 Laboratory Data Labs 24H Laboratory Tests 2 02/04/21 20:48: Immature Granulocyte % (Auto) 0.5, Neutrophils (%) (Auto) 84.0H, Lymphocytes (%) (Auto) 7.6L, Monocytes (%) (Auto) 7.5, Eosinophils (%) (Auto) 0.1, Basophils (%) (Auto) 0.3, Neutrophils # (Auto) 13.6H, Lymphocytes # (Auto) 1.2L, Monocytes # (Auto) 1.2H, Eosinophils # (Auto) 0.0, Basophils # (Auto) 0.1, Nucleated Red Blood Cells % (auto) 0.0, Anion Gap 7L, Glomerular Filtration Rate > 60.0, Lactic Acid Level 2.0, Calcium Level 11.2H, Total Bilirubin 1.3H, Direct Bilirubin 0.4H, Aspartate Amino Transf (AST/SGOT) 14, Alanine Aminotransferase (ALT/SGPT) 19, Alkaline Phosphatase 103, Total Creatine Kinase 66, Creatine Kinase MB 1.0, Creatine Kinase MB Relative Index 1.52, Troponin I < 0.02, AO-Mwl-X-Type Natriuretic Peptide 2265H, Total Protein 8.0, Albumin 3.5, Albumi n/Globulin Ratio 0.8L 02/04/21 21:13: POC pH (Misc Panel) 7.392, POC Base Excess (Misc Panel) 1.0, POC Saturated Percent O2 (Misc) 97, POC pO2 (Misc Panel) 91.0, POC pCO2 (Misc Panel) 42.1, POC HCO3 (Misc Panel) 25.6, POC Total CO2 (Misc Panel) 27.0 CBC/BMP Laboratory Tests 02/04/21 20:48 Microbiology Microbiology 02/04/21 Respiratory Virus Panel (PCR) ([facility]) - Final, Complete Home Medications Scheduled Ascorbic Acid (Vitamin C) 500 Mg Tablet, 500 MG PO BID Aspirin (Aspirin) 81 Mg Tab.chew, 81 MG PO QHS Atorvastatin Calcium (Atorvastatin Calcium) 80 Mg Tablet, 80 MG PO QHS Cholecalciferol (Vitamin D3) (Vitamin D3) 1,000 Unit Tablet, 1,000 UNITS PO QHS Ferrous Sulfate (Ferrous Sulfate) 325 Mg Tablet, 325 MG PO BID Furosemide (Furosemide) 40 Mg Tablet, 80 MG PO DAILY Metoprolol Succinate (Metoprolol Succinate) 100 Mg Tab.er.24h, 100 MG PO QHS Omeprazole (Omeprazole) 20 Mg Capsule.dr, 40 MG PO QHS Potassium Chloride (K-Tab ER) 10 Meq Tab, 10 MEQ PO QHS Umeclidinium Brm/Vilanterol Tr (Anoro Ellipta 62.5-25 Mcg INH) 1 Each Blst.w.dev, 1 PUFF PO DAILY Scheduled PRN Albuterol Sulf (Albuterol Sulfate) 2.5 Mg/3 Ml Vial.neb, 2.5 MG PO Q4-6HP PRN for SHORTNESS OF BREATH Albuterol Sulfate (Proair Hfa) 108 Mcg/Act Aer, 1 PUFF INH QID PRN for SHORTNESS OF BREATH Allergies Coded Allergies: Penicillins (Verified Allergy, Unknown, 02/22/19) hives A-FIB/CHADSVASC A-FIB History Current/History of A-Fib/PAF?: No VAMSHI SAWANT MD February 05, 2021 01:51
[2021-02-05 03:10] VITALS: BP 123/60
[2021-02-05] MEDS: DOCUSATE SODIUM 100MG CAPSULE PO SCH ×3 (04:22→20:29)
[2021-02-05] MEDS: ATORVASTATIN 20 MG TAB PO SCH ×2 (04:22→20:29)
[2021-02-05] MEDS: POTASSIUM CHLORIDE 10 MEQ SR TABLET PO SCH ×2 (04:22→20:30)
[2021-02-05] MEDS: OMEPRAZOLE 20 MG CAP PO SCH ×2 (04:22→20:32)
[2021-02-05] MEDS: ASPIRIN 81 MG CHEW TABLET PO SCH ×2 (04:23→20:28)
[2021-02-05] MEDS: METOPROLOL SUCC (TopROL XL) 100MG *XL* TAB PO SCH ×2 (04:24→20:32)
[2021-02-05 05:59] LABS: HEMATOCRIT 38.6 % (36.0-47.0); HEMOGLOBIN 12.3 g/dl (12.0-15.5); MEAN CORPUSCULAR HEMOGLOBIN 26.7 pg (27.0-33.0); MEAN CORPUSCULAR HGB CONC 31.9 g/dl (32.0-36.5); MEAN CORPUSCULAR VOLUME 83.7 fl (80.0-96.0); PLATELET COUNT, AUTOMATED 144 10^3/uL (150-450); RED BLOOD COUNT 4.61 10^6/uL (4.00-5.40); WHITE BLOOD COUNT 9.6 10^3/uL (4.0-10.0)
[2021-02-05 06:33] LABS: ALBUMIN 3.1 GM/DL (3.2-5.2); ALT/SGPT 18 U/L (12-78); BILIRUBIN,TOTAL 1.6 MG/DL (0.2-1.0); BLOOD UREA NITROGEN 8 MG/DL (7-18); CALCIUM LEVEL 10.1 MG/DL (8.5-10.1); CARBON DIOXIDE LEVEL 29 MEQ/L (21-32); CHLORIDE LEVEL 102 MEQ/L (98-107); GLOMERULAR FILTRATION RATE > 60.0 (>51); GLUCOSE, FASTING 93 MG/DL (70-100); POTASSIUM SERUM 3.5 MEQ/L (3.5-5.1); SODIUM LEVEL 135 MEQ/L (136-145); TOTAL PROTEIN 7.2 GM/DL (6.4-8.2)
[2021-02-05 07:25] VITALS: BP 112/62
[2021-02-05] MEDS: ENOXAPARIN 40MG/0.4ML SYRINGE (J1650 PER 10MG) SC SCH (09:13)
[2021-02-05] MEDS: FUROSEMIDE 40MG/4ML VIAL (J1940) IV SCH ×2 (09:13→17:09)
[2021-02-05 09:48] LABS: APPEARANCE, URINE CLEAR (CLEAR); BACTERIA, URINE AUTO 1+ (NEGATIVE); BILIRUBIN, URINE AUTO NEGATIVE (NEGATIVE); BLOOD, URINE BLOOD NEGATIVE (NEGATIVE); COLOR, URINE YELLOW (YELLOW); GLUCOSE, URINE (UA) AUTO NEGATIVE (NEGATIVE); KETONE, URINE AUTO NEGATIVE (NEGATIVE); LEUKOCYTE ESTERASE, URINE AUTO NEGATIVE (NEGATIVE); MUCUS, URINE SMALL (NEGATIVE); NITRITE, URINE AUTO NEGATIVE (NEGATIVE); PROTEIN, URINE AUTO NEGATIVE (NEGATIVE); RBC, URINE AUTO 2 /HPF (0-3); SQUAMOUS EPITHELIAL CELL UR AU 1 /HPF (0-6); WBC, URINE AUTO 0 /HPF (0-3)
[2021-02-05 11:34] VITALS: BP 115/56
[2021-02-05 11:34] LABS: THYROID STIMULATING HORMONE 0.309 uIU/ML (0.358-3.740)
[2021-02-05] MEDS ORDERED: SLF 3 ML SYR IV PRN (11:45)
[2021-02-05] MEDS: SLF 3 ML SYR IV SCH ×2 (13:05→20:33)
--- NOTE | 2021-02-05 13:38 | IPNPDOC ---
Text Note Date of Service The patient was seen on 02/05/21. NOTE ASSESSMENT AND PLAN: Patient is a 60-year-old female with a past medical history of diastolic congestive heart failure with a preserved ejection fraction of 65% (as per her last ECHO done in 2019 at [facility]], [previous episodes of CHF exacerbation] last one in December 2020, coronary artery disease status post stent [ in 2009, negative cath in 2018], COPD, MELANY [uses CPAP at home], hypertension, GERD, hyperlipidemia presents to the emergency department today with progressive s hortness of breath and dry cough. The patient states shortness of breath started 2 weeks ago but has been getting progressively worse over the past 24 hours because of which she ended up in the ED. Patient states forgetting to take her Lasix time and again. In the emergency department patient was saturating at 80% on room air, was started on supplemental oxygen 6 L, given IV Lasix, BNP was 2265 and chest x-ray was suggestive of exacerbation of congestive heart failure. Patient states no chest pain, palpitations, leg swelling, fevers or chills. 1. Shortness of breath resulting from Exacerbation of CHF secondary to dietary noncompliance/ noncompliance to medication: -Patient has been started on 40 mg of IV furosemide twice a day. -Strict monitoring of I's and O's. -Repeat 2-D echo was ordered because the last echo report is from October 2016. -Patient was started on 6 L of oxygen weaned off to 3 L of oxygen currently. Saturating 95% on 3 L -An order was placed for albuterol sulfate 1 puff 4 times a day as needed in case of worsening shortness of breath. -Congestive heart failure with grade 1 diastolic dysfunction with preserved ejection fraction: As per echo in 2017. 2. HYPERTENSION: -Continue with home medication. -Metoprolol by mouth 100 mg at bedtime. 3. MELANY: -May use CPAP with home settings. 4. GERD: -Patient is given by mouth Mylanta 30 mL daily as needed 5. COPD: -Proventil Ventolin inhaler 1 puff 4 times a day as needed for shortness of breath. 6. Hyperlipidemia: -Continue with statin. DVT prophylaxis: Patient is on 40 mg of enoxaparin daily subcutaneously. DISPOSITION: Patient anticipated to stay a day or 2. Not stable for discharge. - VS,Fishbone, I+O VS, Fishbone, I+O Laboratory Tests 02/04/21 20:48 02/05/21 05:37 Vital Signs Date Time Temp Pulse Resp B/P (MAP) Pulse Ox O2 Delivery O2 Flow Rate FiO2 02/05/21 12:00 3.0 02/05/21 11:34 97.0 75 18 115/56 (75) 93 Nasal Cannula I&O- Last 24 Hours up to 6 AM 02/05/21 06:00 Intake Total 300 ml Output Total 1250 ml Balance -950 ml Iris York MD February 05, 2021 13:19
[2021-02-05 15:50] VITALS: BP 101/52
[2021-02-05 17:09] VITALS: BP 109/56
--- NOTE | 2021-02-05 20:04 | ECGEPIP ---
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
[2021-02-05 20:15] VITALS: BP 138/66
[2021-02-06] VITALS (13 sets, daily range): BP systolic 102–119; BP diastolic 53–64; O2SAT 90–96
[2021-02-06] MEDS: SLF 3 ML SYR IV SCH ×3 (05:16→21:05)
[2021-02-06] MEDS: FUROSEMIDE 40MG/4ML VIAL (J1940) IV SCH ×2 (08:26→16:59)
[2021-02-06] MEDS: ENOXAPARIN 40MG/0.4ML SYRINGE (J1650 PER 10MG) SC SCH (08:26)
[2021-02-06] MEDS: DOCUSATE SODIUM 100MG CAPSULE PO SCH ×2 (08:26→20:38)
[2021-02-06 08:34] LABS: MAGNESIUM LEVEL 2.2 MG/DL (1.8-2.4)
--- NOTE | 2021-02-06 08:54 | ECHO ---
DATE OF PROCEDURE: 02/05/2021 Age: 60 Gender: Female Height: 162 cm Weight: 92 kg REFERRING PHYSICIAN: Jakob Keller MD INDICATION: Acute respiratory failure with hypoxia. MEASUREMENTS: IVS 1.2 cm LV 5.0 cm LVPW 1.1 cm LA 5.5 cm Aorta 3.0 cm LA volume index 56 E prime velocity septal 4.1 cm/s E prime velocity lateral 4.12 cm/s FINDINGS: This study is of limited technical quality with somewhat challenging visualization. Underlying sinus rhythm. Left ventricle is normal size. There is borderline left ventricular hypertrophy and hyperdynamic LV systolic function. I estimate EF in the neighborhood of 70% to 75%. No segmental wall motion abnormalities are noted. Right ventricle was poorly visualized. There is severe left atrial enlargement. The right atrium does not appear grossly enlarged. The aortic valve is calcified, but it has three cusps and grossly preserved mobility. There are very prominent calcifications in the mitral apparatus with restricted mobility of principally posterior mitral leaflet. There is also apparent systolic anterior wall motion of anterior mitral leaflet. Tricuspid valve appears grossly normal. Pulmonic valve was not well seen. No pericardial effusion is noted. Inferior vena cava was relatively small caliber, but it was poorly visualized. Aortic root and aortic arch appear grossly normal. Doppler interrogation of the aortic valve reveals no significant insufficiency or stenosis. There is some degree of LVOT gradient. The maximum demonstrated was only 12, but I suspect that the true gradient is going to be higher. There is mitral stenosis. Mean gradient was 8, peak gradient 14, and calculated mitral valve area 2.0. The gradients correspond to roughly moderate mitral insufficiency. No significant insufficiency was appreciated. No significant tricuspid and pulmonic insufficiency was seen. Evaluation of the diastolic function is inconclusive due to underlying mitral stenosis. CONCLUSIONS: 1. Study is of fair technical quality. The patient is in sinus rhythm. 2. Normal LV size with borderline LVH, hyperdynamic LV systolic function. Unable to determine diastolic function. 3. At least mild LVOT gradient with systolic anterior motion of anterior mitral leaflet. I cannot rule out that substantially higher LVOT gradient was present. 4. At least moderate mitral stenosis. 5. Severe left atrial enlargement. 6. Suggestive of low or normal central venous pressure. 7. Unable to determine pulmonary artery pressure. MTDD
[2021-02-06 10:09] LABS: HEMATOCRIT 42.3 % (36.0-47.0); MEAN CORPUSCULAR HEMOGLOBIN 26.3 pg (27.0-33.0); MEAN CORPUSCULAR HGB CONC 30.7 g/dl (32.0-36.5); MEAN CORPUSCULAR VOLUME 85.6 fl (80.0-96.0); PLATELET COUNT, AUTOMATED 168 10^3/uL (150-450); RED BLOOD COUNT 4.94 10^6/uL (4.00-5.40); WHITE BLOOD COUNT 6.9 10^3/uL (4.0-10.0)
[2021-02-06 10:35] LABS: BLOOD UREA NITROGEN 12 MG/DL (7-18); CALCIUM LEVEL 10.4 MG/DL (8.5-10.1); CARBON DIOXIDE LEVEL 34 MEQ/L (21-32); CHLORIDE LEVEL 102 MEQ/L (98-107); CREATININE FOR GFR 0.64 MG/DL (0.55-1.30); GLOMERULAR FILTRATION RATE > 60.0 (>51); GLUCOSE, FASTING 105 MG/DL (70-100); POTASSIUM SERUM 4.4 MEQ/L (3.5-5.1); SODIUM LEVEL 139 MEQ/L (136-145)
--- NOTE | 2021-02-06 11:06 | REP ---
INDICATION: hypoxia COMPARISON: 02/04/2021 TECHNIQUE: PA and lateral. FINDINGS: The mediastinum and cardiac silhouette are normal. The lung salgado are clear and without acute consolidation, effusion, or pneumothorax. The skeletal structures are intact and normal. IMPRESSION: No acute cardiopulmonary process. <Electronically signed by Manolo Higuera > 02/06/21 1107
--- NOTE | 2021-02-06 15:01 | IPNPDOC ---
Date Seen The patient was seen on 02/06/21. Progress Note SUBJECTIVE: Patient was seen and examined this morning. She currently states that she still feels short of breath. She has been continued on 2-3L NC. She denies any chest pain. She states that she does not feel any more short of breath with exertion. She denies any chest pain OBJECTIVE PHYSICAL EXAMINATION: VITAL SIGNS: Please see below. GENERAL: Awake, alert, and oriented. Appears in no acute distress. Sitting up comfortably in bed. HEENT: Atraumatic, normocephalic. Eyes are nonicteric. Trachea is midline. Mucous membranes are pink and moist. No JVD CARDIOVASCULAR: Normal S1, S2. Regular rate and rhythm. No clicks, rubs, or murmurs. RESPIRATORY: Clear vesicular breath sounds throughout. Diminished breath sounds throughout. Some scattered wheezing. No rhonchi. No rales ABDOMINAL: Soft, nondistended. Nontender. Normoactive bowel sounds throughout EXTREMITIES: No edema. Full and equal pulses in bilateral upper and lower extremities NEUROLOGICAL: no focal neurological deficits PSYCHOLOGICAL: Mood and affect appear appropriate LABORATORY DATA, IMAGING STUDIES, MICROBIOLOGY: Please see below. Echocardiogram: DATE OF PROCEDURE: 02/05/2021 Age: 60 Gender: Female Height: 162 cm Weight: 92 kg REFERRING PHYSICIAN: Jakob Keller MD INDICATION: Acute respiratory failure with hypoxia. MEASUREMENTS: IVS 1.2 cm LV 5.0 cm LVPW 1.1 cm LA 5.5 cm Aorta 3.0 cm LA volume index 56 E prime velocity septal 4.1 cm/s E prime velocity lateral 4.12 cm/s FINDINGS: This study is of limited technical quality with somewhat challenging visualization. Underlying sinus rhythm. Left ventricle is normal size. There is borderline left ventricular hypertrophy and hyperdynamic LV systolic function. I estimate EF in the neighborhood of 70% to 75%. No segmental wall motion abnormalities are noted. Right ventricle was poorly visualized. There is severe left atrial enlargement. The right atrium does not appear grossly enlarged. The aortic valve is calcified, but it has three cusps and grossly preserved mobility. There are very prominent calcificati ons in the mitral apparatus with stricture mobility of principally posterior mitral leaflet. There is also apparent systolic anterior wall motion of anterior mitral leaflet. Tricuspid valve appears grossly normal. Pulmonic valve was not well seen. No pericardial effusion is noted. Inferior vena cava was relatively small caliber, but it was poorly visualized. Aortic root and aortic arch appear grossly normal. Doppler interrogation of the aortic valve reveals no significant insufficiency or stenosis. There is some degree of LVOT gradient. The maximum demonstrated wasonly 12, but I suspect that the true gradient is going to be higher. There is mitral stenosis. Mean gradient was 8, peak gradient 14, and calculated mitral valve area 2.0. The gradients correspond to roughly moderate mitral insu fficiency. No significant insufficiency was appreciated. No significant tricuspid and pulmonic insufficiency was seen. Evaluation of the diastolic function is inconclusive due to underlying mitral st enosis. CONCLUSIONS: 1. Study is of fair technical quality. The patient is in sinus rhythm. 2. Normal LV size with borderline LVH, hyperdynamic LV systolic function. Unable to determine diastolic function. 3. At least mild LVOT gradient with systolic anterior motion of anterior mitral leaflet. I cannot rule out that substantially high LVOT gradient was present. 4. At least moderate mitral stenosis. 5. Severe left atrial enlargement. 6. Suggestive of low or normal central venous pressure. 7. Unable to determine pulmonary artery pressure. DVT prophylaxis ordered?: Lovenox ASSESSMENT AND PLAN: Patient is a 60 year old female with a past medical history significant for HFpEF, CAD s/p PCI with stent in 2008, COPD, MELANY, hypertension, and GERD, who presented to the [facility] ER with complaint of shortness of breath. Patient was found to have elevated BNP and pulmonary vascular congestion on X- ray. She was admitted for decompensated congestive heart failure. She has been continued on diuresis. She remains on supplemental oxygen PROBLEMS: 1. Acute hypoxic respiratory likely 2/2 decompensated congestive heart failure -Patient presented with shortness of breath and hypoxia. X-ray demonstrating increased pulmonary vascular markings. Her BNP was elevated as well. She has been placed on lasix. She has put out 2,585ml total. -Echocardiogram demonstrated moderate mitral stenosis and high LVOT gradient. Mild LVH. Consider that patients decompensation is partly due to mitral stenosis. -Repeat chest x-ray today demonstrates improvement. BNP is decreasing. -Will continue with IV lasix. On discharge will change her to Torsemide -Sodium restricted diet. 1500cc fluid restriction -Patient also has some mild wheezing today. Will continue her maintenance inhalers -Will wean O2. Anticipate discharge tomorrow. 2. Hypertension -Continue home medication -Metoprolol 100mg qhs 3. MELANY -Patient has brought own CPAP 4. GERD -Mylanta as needed -Prilosec 5. COPD -Appears stable and not in acute exacerbation. She had some mild wheezing today. Her maintenance inhalers were not initially continued on admission. Will start Spiriva and Symbicort 6. Hyperlipidemia -Continue atorvastatin 7. CAD -Continue aspirin 8. DVT Prophylaxis -Continue lovenox DISPOSITION: Likely discharge home tomorrow. May require home oxygen VS, I&O, 24H, Fishbone Vital Signs/I&O Vital Signs Date Time Temp Pulse Resp B/P (MAP) Pulse Ox O2 Delivery O2 Flow Rate FiO2 02/06/21 12:00 2.0 02/06/21 11:35 97.0 63 18 113/64 (80) 96 Nasal Cannula I&O- Last 24 Hours up to 6 AM 02/06/21 06:00 Intake Total 490 ml Output Total 2125 ml Balance -1635 ml Laboratory Data 24H LABS Laboratory Tests 2 02/06/21 07:32: Magnesium Level 2.2, ZE-Stg-D-Type Natriuretic Peptide 976H 02/06/21 09:36: Nucleated Red Blood Cells % (auto) 0.0, Anion Gap 3L, Glomerular Filtration Rate > 60.0, Calcium Level 10.4H CBC/BMP Laboratory Tests 02/06/21 09:36 Microbiology Microbiology 02/04/21 Respiratory Virus Panel (PCR) ([facility]) - Final, Complete GME ATTESTATION GME ATTESTATION My faculty preceptor for this patient encounter was physically present during the encounter and was fully available. All aspects of the patient interview, examination, medical decision making process, and medical care plan development were reviewed and approved by the faculty preceptor. The faculty preceptor is aware and concurs with the plan as stated in the body of this note and will attest to such by his/her cosignature. ATTENDING NOTE I, Devendra Alvarenga MD, have independently examined this patient and performed my own physical exam, as well as reviewed the documentation and edited where necessary. I have discussed in detail with the resident / student the findings and plan of treatment as documented by the resident / student and edited their note. I agree with their findings and treatment plan and have edited their doc umentation. RIKAABDIFATAH February 06, 2021 13:31 DEVENDRA ALVARENGA MD February 09, 2021 16:31
[2021-02-06] MEDS: SYMBICORT 160/4.5MCG INHALER 6GM INH SCH (19:39)
[2021-02-06] MEDS: OMEPRAZOLE 20 MG CAP PO SCH (20:35)
[2021-02-06] MEDS: ATORVASTATIN 20 MG TAB PO SCH (20:36)
[2021-02-06] MEDS: ASPIRIN 81 MG CHEW TABLET PO SCH (20:38)
[2021-02-06] MEDS: METOPROLOL SUCC (TopROL XL) 100MG *XL* TAB PO SCH (20:49)
[2021-02-07] VITALS (8 sets, daily range): BP systolic 104–142; BP diastolic 51–63; O2SAT 95–96
[2021-02-07 05:31] LABS: HEMATOCRIT 40.3 % (36.0-47.0); HEMOGLOBIN 12.8 g/dl (12.0-15.5); MEAN CORPUSCULAR HEMOGLOBIN 26.8 pg (27.0-33.0); MEAN CORPUSCULAR HGB CONC 31.8 g/dl (32.0-36.5); MEAN CORPUSCULAR VOLUME 84.5 fl (80.0-96.0); PLATELET COUNT, AUTOMATED 158 10^3/uL (150-450); RED BLOOD COUNT 4.77 10^6/uL (4.00-5.40); WHITE BLOOD COUNT 6.1 10^3/uL (4.0-10.0)
[2021-02-07] MEDS: SLF 3 ML SYR IV SCH (06:04)
[2021-02-07 06:09] LABS: ALBUMIN 2.9 GM/DL (3.2-5.2); ALT/SGPT 18 U/L (12-78); BILIRUBIN,TOTAL 0.6 MG/DL (0.2-1.0); BLOOD UREA NITROGEN 15 MG/DL (7-18); CALCIUM LEVEL 10.6 MG/DL (8.5-10.1); CARBON DIOXIDE LEVEL 29 MEQ/L (21-32); CHLORIDE LEVEL 102 MEQ/L (98-107); CREATININE FOR GFR 0.51 MG/DL (0.55-1.30); GLOMERULAR FILTRATION RATE > 60.0 (>51); GLUCOSE, FASTING 95 MG/DL (70-100); POTASSIUM SERUM 3.8 MEQ/L (3.5-5.1); SODIUM LEVEL 137 MEQ/L (136-145)
[2021-02-07] MEDS: SYMBICORT 160/4.5MCG INHALER 6GM INH SCH (07:10)
[2021-02-07] MEDS ORDERED: TIOTROPIUM INHALER/CAPSULE (SPIRIVA) INH SCH (08:00)
[2021-02-07] MEDS: ENOXAPARIN 40MG/0.4ML SYRINGE (J1650 PER 10MG) SC SCH (09:36)
[2021-02-07] MEDS: FUROSEMIDE 40MG/4ML VIAL (J1940) IV SCH (09:37)
[2021-02-07] MEDS: DOCUSATE SODIUM 100MG CAPSULE PO SCH (09:37)
[2021-02-07] MEDS ORDERED: TORS20TA2 PO (10:44)
--- NOTE | 2021-02-07 16:45 | DS.PDOC ---
Discharge Summary General Date of Admission February 05, 2021 at 01:21 Date of Discharge 02/07/21 Attending Physician: PRITESH ALVARENGA MD Discharge Summary PROCEDURES PERFORMED DURING STAY: [None]. ADMITTING DIAGNOSES: 1. Acute hypoxic respiratory failure 2/2 acute on chronic decompensated congestive heart failure with preserved ejection fraction 2. COPD 3. MELANY 4. ASCVD DISCHARGE DIAGNOSES: 1. Acute hypoxic respiratory failure 2/2 acute on chronic decompensated congestive heart failure with preserved ejection fraction 2. COPD 3. MELANY 4. ASCVD COMPLICATIONS/CHIEF COMPLAINT: Acute Respitory Failure With Hypoxia. HISTORY OF PRESENT ILLNESS: Patient is an 60-year-old female with past medical history significant for heart failure with preserved ejection fraction, chronic obstructive pulmonary disease, coronary disease status post percutaneous intervention with stent placement, who presented to the [facility] emergency department with complaint of progressive shortness of breath. Patient was recently admitted to [facility] in December for congestive heart failure exacerbation. She states that since that time she's been compliant with medications. However, she does admit to dietary noncompliance. States that she had gone out to eat with her daughter. Additionally, patient states that she does not restrict her fluid intake. She states that she drinks approximately 1/2-2 L of diet soda a day. She denies any lower extremity swelling. She stated that she just felt more more short of breath, which prompted her to present emergency department. On presentation to the emergency department, patient was hypoxic, and SPO2 of 80% on room air. She was placed on 6 L nasal cannula. Chest x-ray obtained at that time demonstrated increased vascular interstitial markings consistent with pulmonary edema. Her BNP was elevated at 2265. Patient was given IV Lasix and admitted for acute on chronic decompensated congestive heart failure with preserved ejection fraction. HOSPITAL COURSE: During the patient's hospital course he was continued with diuresis. She did slowly improve in terms of her hypoxia. Repeat chest x-rays demonstrated resolution of her pulmonary edema. Echocardiogram was obtained as well during her hospitalization, which demonstrated hyperdynamic left ventricular systolic function and a mild to moderate ventricular outflow tract gradient was systolic anterior motion of anterior mitral leaflet. His energy moderate mitral stenosis and severe left atrial enlargement. Patient was noted to have low or normal central venous pressure. At the conclusion of the patient's hospitalization, she was discharged home with recommendations to follow up with her paper processing machine helper as well as her primary care physician. She was previously on 80 mg of by mouth Lasix. This has been changed to torsemide 40 mg. Patient was encouraged to avoid artificial sweetened drinks. Additionally, she was instructed to adhere to a sodium restricted and fluid restricted diet. DISCHARGE MEDICATIONS: Please see below. ALLERGIES: Please see below. PHYSICAL EXAMINATION ON DISCHARGE: VITAL SIGNS: Please see below. GENERAL: Awake, alert, oriented, appears no acute distress, sitting up comfortably in bed HEENT: Atraumatic, normocephalic. Eyes are nonicteric. Trachea is midline. Mucous membranes are pink and moist. No JVD NECK:. No palpable cervical, axillary or supraclavicular lymphadenopathy CARDIOVASCULAR EXAMINATION:. Normal S1, S2, regular rate and rhythm, 2/6 systolic ejection murmur. No clicks or rubs RESPIRATORY EXAMINATION: Clear vesicular breath sounds bilaterally, diminished throughout. No wheezes rhonchi or rales. Symmetric chest expansion ABDOMINAL EXAMINATION:. Soft, nondistended, nontender. Normoactive bowel sounds EXTREMITIES: No edema. Full and equal pulses in bilateral upper and lower extremities SKIN: No rashes or lesions NEUROLOGICAL EXAMINATION:. No focal Neurological deficits PSYCHIATRIC EXAMINATION: Mood and affect appear appropriate LABORATORY DATA: Please see below. IMAGING: PROCEDURE INFORMATION: Exam: XR Chest Exam date and time: 02/04/2021 9:11 PM Age: 60 years old Clinical indication: Cough and dyspnea; Additional info: Dyspnea/cough TECHNIQUE: Imaging protocol: XR of the chest. Views: 1 view. COMPARISON: [place] PORTABLE CHEST X-RAY 01/07/2021 6:11 PM FINDINGS: Lungs: Increased pulmonary vascular markings. Pleural spaces: Unremarkable. No pleural effusion. No pneumothorax. Heart/Mediastinum: Unremarkable. No cardiomegaly. Bones/joints: Unremarkable. IMPRESSION: Increased pulmonary vascular markings. Findings suggest pulmonary edema. INDICATION: hypoxia COMPARISON: 02/04/2021 TECHNIQUE: PA and lateral. FINDINGS: The mediastinum and cardiac silhouette are normal. The lung salgado are clear and without acute consolidation, effusion, or pneumothorax. The skeletal structures are intact and normal. IMPRESSION: No acute cardiopulmonary process. ECHOCARDIOGRAM DATE OF PROCEDURE: 02/05/2021 Age: 60 Gender: Female Height: 162 cm Weight: 92 kg REFERRING PHYSICIAN: Jakob Keller MD INDICATION: Acute respiratory failure with hypoxia. MEASUREMENTS: IVS 1.2 cm LV 5.0 cm LVPW 1.1 cm LA 5.5 cm Aorta 3.0 cm LA volume index 56 E prime velocity septal 4.1 cm/s E prime velocity lateral 4.12 cm/s FINDINGS: This study is of limited technical quality with somewhat challenging visualization. Underlying sinus rhythm. Left ventricle is normal size. There is borderline left ventricular hypertrophy and hyperdynamic LV systolic function. I estimate EF in the neighborhood of 70% to 75%. No segmental wall motion abnormalities are noted. Right ventricle was poorly visualized. There is severe left atrial enlargement. The right atrium does not appear grossly enlarged. The aortic valve is calcified, but it has three cusps and grossly preserved mobility. There are very prominent calcifications in the mitral apparatus with stricture mobility of principally posterior mitral leaflet. There is also apparent systolic anterior wall motion of anterior mitral leaflet. Tricuspid valve appears grossly normal. Pulmonic valve was not well seen. No pericardial effusion is noted. Inferior vena cava was relatively small caliber, but it was poorly visualized. Aortic root and aortic arch appear grossly normal. Doppler interrogation of the aortic valve reveals no significant insufficiency or stenosis. There is some degree of LVOT gradient. The maximum demonstrated wasonly 12, but I suspect that the true gradient is going to be higher. There is mitral stenosis. Mean gradient was 8, peak gradient 14, and calculated mitral valve area 2.0. The gradients correspond to roughly moderate mitral insufficiency. No significant insufficiency was appreciated. No significant tricuspid and pulmonic insufficiency was seen. Evaluation of the diastolic function is inconclusive due to underlying mitral stenosis. CONCLUSIONS: 1. Study is of fair technical quality. The patient is in sinus rhythm. 2. Normal LV size with borderline LVH, hyperdynamic LV systolic function. Unable to determine diastolic function. 3. At least mild LVOT gradient with systolic anterior motion of anterior mitral leaflet. I cannot rule out that substantially high LVOT gradient was present. 4. At least moderate mitral stenosis. 5. Severe left atrial enlargement. 6. Suggestive of low or normal central venous pressure. 7. Unable to determine pulmonary artery pressure. PROGNOSIS: Fair ACTIVITY: [As tolerated]. DIET: 2 g sodium restricted, 1800 mL fluid restriction DISCHARGE PLAN:. Patient is to be discharged home. She is a follow-up with her paper processing machine helper in 1-2 weeks. She is to follow with her primary care physician in 7-10 days. Patient is to stop her Lasix. She is to start furosemide. Patient is to adhere to sodium restricted and fluid restricted diet. DISPOSITION: 01 Home, Self-Care. DISCHARGE CONDITION: [Stable]. TIME SPENT ON DISCHARGE: Greater than 35 minutes. Vital Signs/I&Os Vital Signs Date Time Temp Pulse Resp B/P (MAP) Pulse Ox O2 Delivery O2 Flow Rate FiO2 02/07/21 12:00 98.1 81 16 117/56 (76) 95 Room Air 02/07/21 05:00 2.0 I&O- Last 24 Hours up to 6 AM 02/07/21 06:00 Intake Total 780 ml Output Total 3375 ml Balance -2595 ml Laboratory Data Labs 24H Laboratory Tests 2 02/07/21 05:19: Nucleated Red Blood Cells % (auto) 0.0, Anion Gap 6L, Glomerular Filtration Rate > 60.0, Calcium Level 10.6H, Total Bilirubin 0.6#, Aspartate Amino Transf (AST/SGOT) 14, Alanine Aminotransferase (ALT/SGPT) 18, Alkaline Phosphatase 79, Total Protein 7.0, Albumin 2.9L, Albumin/Globulin Ratio 0.7L CBC/BMP Laboratory Tests 02/07/21 05:19 Microbiology Microbiology 02/04/21 Respiratory Virus Panel (PCR) (JULIA) - Final, Complete Discharge Medications Scheduled Ascorbic Acid (Vitamin C) 500 Mg Tablet, 500 MG PO BID, (Reported) Aspirin (Aspirin) 81 Mg Tab.chew, 81 MG PO QHS, (Reported) Atorvastatin Calcium (Atorvastatin Calcium) 80 Mg Tablet, 80 MG PO QHS, (Reported) Cholecalciferol (Vitamin D3) (Vitamin D3) 1,000 Unit Tablet, 1,000 UNITS PO QHS, (Reported) Ferrous Sulfate (Ferrous Sulfate) 325 Mg Tablet, 325 MG PO BID, (Reported) Metoprolol Succinate (Metoprolol Succinate) 100 Mg Tab.er.24h, 100 MG PO QHS, (Reported) Omeprazole (Omeprazole) 20 Mg Capsule.dr, 40 MG PO QHS, (Reported) Potassium Chloride (K-Tab ER) 10 Meq Tab, 10 MEQ PO QHS, (Reported) Torsemide (Torsemide) 20 Mg Tablet, 2 TAB PO DAILY Umeclidinium Brm/Vilanterol Tr (Anoro Ellipta 62.5-25 Mcg INH) 1 Each Blst.w.dev, 1 PUFF PO DAILY, (Reported) Scheduled PRN Albuterol Sulf (Albuterol Sulfate) 2.5 Mg/3 Ml Vial.neb, 2.5 MG PO Q4-6HP PRN for SHORTNESS OF BREATH, (Reported) Albuterol Sulfate (Proair Hfa) 108 Mcg/Act Aer, 1 PUFF INH QID PRN for SHORTNESS OF BREATH, (Reported) Allergies Coded Allergies: Penicillins (Verified Allergy, Unknown, 02/22/19) ABDIFATAH Salmon DO February 07, 2021 16:45
== END 2021-02-07 15:11 | disposition home or self-care (01) | DRG 291 ==
LOC: M ED 20:37 → M ED INP 02-05 01:21 → ENRESERV 02-05 01:57 → M PCU 02-05 03:04
PROVIDERS: ADMIT Family Medicine; ATTEND Internal Medicine
DX: I50.33 Acute on chronic diastolic (congestive) heart failure (principal); J96.01 Acute respiratory failure with hypoxia; G47.33 Obstructive sleep apnea (adult) (pediatric); J44.9 Chronic obstructive pulmonary disease, unspecified; I70.209 Unspecified atherosclerosis of native arteries of extremities, unspecified extremity; I25.10 Atherosclerotic heart disease of native coronary artery without angina pectoris; Z79.899 Other long term (current) drug therapy; Z79.82 Long term (current) use of aspirin; Z88.0 Allergy status to penicillin; E78.5 Hyperlipidemia, unspecified; Z95.2 Presence of prosthetic heart valve; K21.9 Gastro-esophageal reflux disease without esophagitis

== ENCOUNTER 2021-06-19 01:00 | Inpatient (IN) | payer OTHER ==
[~2021-06-19] VITALS: Ht 162.6 cm; Wt 87.1 kg
[~2021-06-19 01:00] MED LIST changes: +ANOR1AER PO; +FERR325T18 PO; +OMEP40CA4 PO; -OMEP40CA97 PO; +TORS20TA2 PO; +VITA500T9 PO
[2021-06-19] MEDS ORDERED: NITROGLYCERIN 2% OINT 1 GM *U/D* PKT TOP ONE (01:35)
[2021-06-19] MEDS ORDERED: ASPIRIN 81 MG CHEW TABLET PO ONE (01:35)
[2021-06-19 02:11] LABS: BASO # 0.1 10^3/uL (0.0-0.2); BASO % 0.5 % (0.0-1.0); EOS # 0.1 10^3/uL (0.0-0.5); EOS % 1.1 % (0.0-3.0); HEMATOCRIT 45.5 % (36.0-47.0); HEMOGLOBIN 15.2 g/dl (12.0-15.5); LYMPH # 1.7 10^3/uL (1.5-5.0); LYMPH % 15.2 % (24.0-44.0); MEAN CORPUSCULAR HEMOGLOBIN 30.6 pg (27.0-33.0); MEAN CORPUSCULAR HGB CONC 33.4 g/dl (32.0-36.5); MEAN CORPUSCULAR VOLUME 91.5 fl (80.0-96.0); MONO # 0.7 10^3/uL (0.0-0.8); MONO % 5.7 % (2.0-8.0); NEUTROPHILS # 8.8 10^3/uL (1.5-8.5); NEUTROPHILS % 77.2 % (36.0-66.0); PLATELET COUNT, AUTOMATED 139 10^3/uL (150-450); RED BLOOD COUNT 4.97 10^6/uL (4.00-5.40); WHITE BLOOD COUNT 11.3 10^3/uL (4.0-10.0)
[2021-06-19 02:47] LABS: BLOOD UREA NITROGEN 10 MG/DL (7-18); CALCIUM LEVEL 10.6 MG/DL (8.8-10.2); CARBON DIOXIDE LEVEL 26 MEQ/L (21-32); CHLORIDE LEVEL 101 MEQ/L (98-107); CK-MB VALUE MASS 3.4 NG/ML (<3.6); CPK CREATINE PHOSPHOKINASE 84 U/L (26-192); GLOMERULAR FILTRATION RATE > 60.0 (>45); GLUCOSE, FASTING 113 MG/DL (70-100); MB/CK RELATIVE INDEX 4.05 (< OR =4); POTASSIUM SERUM 3.6 MEQ/L (3.5-5.1); SODIUM LEVEL 135 MEQ/L (136-145); TROPONIN I < 0.02 NG/ML (< 0.10)
[2021-06-19 03:14] LABS: RSV AMPLIFICATION NEGATIVE (NEGATIVE)
[2021-06-19] MEDS ORDERED: FUROSEMIDE 40MG/4ML VIAL (J1940) IV ONE (03:15)
[2021-06-19 03:38] LABS: NT-PRO BNP 2152 PG/ML (<125)
--- NOTE | 2021-06-19 03:47 | REPVR ---
PROCEDURE INFORMATION: Exam: XR Chest Exam date and time: 06/19/2021 1:45 AM Age: 61 years old Clinical indication: Pain; Other: Not specified; Additional info: Chest pain TECHNIQUE: Imaging protocol: XR of the chest. Views: 1 view. COMPARISON: CR Chest, 2 view PA, Lat 02/06/2021 10:43 AM FINDINGS: Lungs: Linear interstitial densities and basilar predominant airspace opacities in both lungs. No masses. Pleural spaces: No pleural effusion. No pneumothorax. Heart/Mediastinum: Unremarkable. No cardiomegaly. Bones/joints: Unremarkable. IMPRESSION: Linear interstitial densities and basilar predominant airspace opacities suggesting pulmonary edema. Electronically signed by: Vlad Naranjo On 06/19/2021 03:46:55 AM
[2021-06-19] MEDS ORDERED: ACETAMINOPHEN TAB 650MG DOSE (2X325MG) PO PRN (04:10)
--- NOTE | 2021-06-19 04:29 | HPEPDOC ---
[facility] Medical History & Physical Date of Admission Jun 19, 2021 Date of Service: Jun 19, 2021 Other Provider [facility] Attending Physician: HENRIQUE QUIROZ MD History and Physical CC: shortness of breath HISTORY OF PRESENT ILLNESS: Patient is a pleasant 61-year-old female who presents to [facility] ER with a chief complaint of shortness of breath that started around 8 PM this evening. She states that she was at home at the time when she experienced some pressure headache and some increased shortness of breath which progressively got worse, especially when laying down flat. She took a neb treatment as well as 2 OTC Tylenol and tried to lay down again but with persistent orthopnea as well as paroxysmal nocturnal dyspnea. She reports some associated chest pressure with the shortness of breath. She denies any increased cough or sputum production or fevers shaking chills. She does state that she has had increased loss of appetite and an unintentional 40 pound weight loss in the past year. She denies any increased lower extremity swelling and states that she is compliant with all her medications. She does however report drinking 3-4 sodas per day and is not complying with her 2 L fluid restriction daily. In the ER, patient was hypoxic with an SPO2 of 86% on room air and she was placed on 3 L nasal cannula to sat at 94%. The patient's chest pain improved with oxygen supplementation. She denies any recent travel history or having been in contact with anybody sick. REVIEW OF SYSTEMS: General: Denies fever, shaking chills. reports 40Lb unintentional weight loss in the past year. Increased loss of appetite HEENT: Denies changes in vision including blurry vision or double vision, or hearing loss nasal congestion or sore throat Heart: chest pressure with her increased shortness of breath. Denies palpitations, or increased lower extremity edema Pulm: Denies cough or sputum production or shortness of breath GI: Denies nausea vomiting diarrhea abdominal pain or bloody stools Psych: Denies sadness or loss of interest in doing things, no thoughts of self- harm or suicidal ideation PAST MEDICAL/SURGICAL HISTORY: Hypertension Dyslipidemia Mild mitral stenosis Coronary artery disease (PCI to RCA in 2008) Obesity Left ventricular hypertrophy Moderate persistent asthma with a positive methacholine challenge test Obstructive sleep apnea syndrome (mild) CPAP setting 14 cm of water D&C Knee surgery Tonsillectomy Foot surgery Sinus surgery SOCIAL HISTORY: Active tobacco use currently smokes half a pack a day. 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 AAOx3 no sensory muscle use able to speak in full sentences without respiratory distress. NEURO: No focal neurological deficits HEENT: Head is normocephalic and atraumatic. Extraocular muscles are intact. Pupils are equal, round, and reactive to light and accommodation. Nares appears normal. Moist mucous membranes. Mallampati 4 PULM: Unable to appreciate any rhonchi rales or wheezing. Egophony appreciated on right. No dullness to percussion. CARDIO: Normal S1, S2. no significant murmurs, gallops, rubs or clicks. Trace peripheral edema ABDOMEN: Obese, soft, nontender, and nondistended. Normal bowel sounds. No significant organomegaly appreciated. EXTREMITIES: No cyanosis, clubbing, rash, lesions. Decreased pedal pulses but palpable bilaterally LABS IMAGING: Chest x-ray impression: Linear interstitial densities and basilar predominant airspace opacities suggesting pulmonary edema ASSESSMENT AND PLAN: This is a 61-year-old female who presents with a chief complaint of shortness of breath with some associated chest pressure. She was hypoxic on presentation to the ER and imaging shows findings consistent with pulmonary vascular congestion. She was given nitroglycerin loading dose of aspirin and a one-time 40mg IV of Lasix and placed on nasal cannula for supplemental oxygenation. Her initial troponin was within normal limits and her chest pressure did improve with supplemental oxygen. Patient was asked to be admitted under the hospital service for further management of her care. Acute hypoxic respiratory failure in the setting of decompensated heart failure versus CAP, although less likely Patient is noted to have leukocytosis. Will start antibiotics levaquin Status post 40 mg IV Lasix x1 in ERcontinue 40 mg IV twice daily with strict ins and outs and daily weigh ins. Consider upping the dose if patient does not diurese. Strict 1.5 L to 2 L fluid restrictions daily O2 sat titrate O2 sat between 88% to 92% Chest pain/pressure Likely due to ischemic demand; chest pressure improved with supplemental oxygen Aspirin loaded in ER; nitroglycerin given Initial troponin within normal limits; will trend x2; trend EKG Mild Hypercalcemia Initial calcium is around 10.6 There are no peaked T waves on ECG We will repeat ionized calcium, check PTH, Vitamin D and Phosphorus if abnormal- consider working up for hypercalcemia per a.m. team MELANY compliant with CPAP Can use home CPAP machine at 14 cm of H20 Hypertension Continue with home med Dyslipidemia Continue with home med Coronary artery disease (PCI to RCA in 2008) Pending echo Continue home med Follow-up outpatient with fuel island attendant Dr. Golden Obesity Complicating medical care GI prophylaxis omeprazole DVT prophylaxis teds SCDs Disposition: pending clinical improvement Dispo:home after at least 2 midnight's stay Home Medications Scheduled Ascorbic Acid (Vitamin C) 500 Mg Tablet, 500 MG PO BID Aspirin (Aspirin) 81 Mg Tab.chew, 81 MG PO QHS Atorvastatin Calcium (Atorvastatin Calcium) 80 Mg Tablet, 80 MG PO QHS Cholecalciferol (Vitamin D3) (Vitamin D3) 1,000 Unit Tablet, 1,000 UNITS PO QHS Ferrous Sulfate (Ferrous Sulfate) 325 Mg Tablet, 325 MG PO BID Fluticasone Propionate (Flovent Hfa) 110 Mcg/Act Aer.w.adap, 2 PUFF INH BID Furosemide (Furosemide) 40 Mg Tablet, 80 MG PO DAILY Metoprolol Succinate (Metoprolol Succinate) 100 Mg Tab.er.24h, 100 MG PO QHS TAKES WITH 50MG FOR 150 MG TOTAL Metoprolol Succinate (Metoprolol Succinate) 50 Mg Tab.er.24h, 50 MG PO QHS TAKES WITH 100MG FOR 150MG TOTAL Omeprazole (Omeprazole) 20 Mg Capsule.dr, 40 MG PO QHS Potassium Chloride (K-Tab ER) 10 Meq Tab, 10 MEQ PO QHS Scheduled PRN Albuterol Sulf (Albuterol Sulfate) 2.5 Mg/3 Ml Vial.neb, 2.5 MG PO Q4H PRN for SHORTNESS OF BREATH Albuterol Sulfate (Proair Hfa) 108 Mcg/Act Aer, 2 PUFFS INH Q4H PRN for SHORTNESS OF BREATH Allergies Coded Allergies: Penicillins (Verified Allergy, Unknown, 02/22/19) hives A-FIB/CHADSVASC A-FIB History Current/History of A-Fib/PAF?: No Current PO Anticoag Therapy: Yes GME ATTESTATION GME ATTESTATION My faculty preceptor for this patient encounter was physically present during the encounter and was fully available. All aspects of the patient interview, examination, medical decision making process, and medical care plan development were reviewed and approved by the faculty preceptor. The faculty preceptor is aware and concurs with the plan as stated in the body of this note and will attest to such by his/her cosignature. ATTENDING NOTE time of service 345AM is a 61 yr old w a hx of HFpEF, COPD, personal and family hx of premature CAD, PCI w GLENYS placement in her RCA, HTN, DLP, AV stenosis, MELANY, GERD and active tobacco use (20 pack yr habit) who had dyspnea for several weeks when she wakes up that improves w her morning dose of Lasix, orthopnea, PND and a dry cough. On the her PCP wanted to send her to the hospital but the pt declined; on Friday after eating pizza her dyspnea was worse. She has also had chest pressure. She will be admitted for: #Acute HFpEF #Chest pain Plan:telemetry, monitor Is and Os & weight diuresis, nocturnal BIPAP, trend troponins, smoking cessation education rest per 's H&P Claudia Salcido DO Jun 19, 2021 04:29 HENRIQUE QUIROZ MD Jun 19, 2021 04:53
[2021-06-19] MEDS ORDERED: METO1TAB7 PO (04:37)
[2021-06-19] MEDS ORDERED: FURO40TA2 PO (04:37)
[2021-06-19] MEDS ORDERED: FLUT11IN INH (04:37)
[2021-06-19] MEDS ORDERED: HOME MED LIST COMPLETE! XX SCH (04:40)
[2021-06-19] MEDS ORDERED: ALBUTEROL SULFATE 2.5 MG/0.5 ML INH NEB SOLN NEB PRN (04:40)
[2021-06-19] MEDS ORDERED: ALBUTEROL 90 MCG/ACT 8GM HFA INHALER INH PRN (04:40)
[2021-06-19 05:11] LABS: MAGNESIUM LEVEL 1.8 MG/DL (1.8-2.4); PHOSPHORUS LEVEL 3.8 MG/DL (2.5-4.9); THYROID STIMULATING HORMONE 0.737 uIU/ML (0.358-3.740); TROPONIN I 0.02 NG/ML (< 0.10)
[2021-06-19 05:20] VITALS: BP 107/53; O2SAT 92
[2021-06-19] MEDS: FLUTICASONE HFA 110 MCG 12 GM INHALER (FLOVENT) INH SCH ×2 (07:53→19:08)
[2021-06-19 08:10] LABS: HEMOGLOBIN 14.4 g/dl (12.0-15.5); MEAN CORPUSCULAR HGB CONC 33.5 g/dl (32.0-36.5); MEAN CORPUSCULAR VOLUME 92.5 fl (80.0-96.0); PLATELET COUNT, AUTOMATED 140 10^3/uL (150-450); RED BLOOD COUNT 4.65 10^6/uL (4.00-5.40); WHITE BLOOD COUNT 9.7 10^3/uL (4.0-10.0)
[2021-06-19 08:16] LABS: PHOSPHORUS LEVEL 3.8 MG/DL (2.5-4.9)
[2021-06-19 08:18] LABS: ALBUMIN 3.1 GM/DL (3.2-5.2); ALT/SGPT 23 U/L (12-78); BLOOD UREA NITROGEN 10 MG/DL (7-18); CARBON DIOXIDE LEVEL 28 MEQ/L (21-32); CHLORIDE LEVEL 105 MEQ/L (98-107); CREATININE FOR GFR 0.52 MG/DL (0.55-1.30); GLOMERULAR FILTRATION RATE > 60.0 (>45); GLUCOSE, FASTING 92 MG/DL (70-100); MAGNESIUM LEVEL 1.9 MG/DL (1.8-2.4); POTASSIUM SERUM 3.8 MEQ/L (3.5-5.1); SODIUM LEVEL 138 MEQ/L (136-145); TOTAL PROTEIN 7.1 GM/DL (6.4-8.2)
[2021-06-19 09:02] LABS: PTH INTACT 163.8 PG/ML (18.5-88.0); TOTAL 25(OH) VITAMIN D 39.5 NG/ML (30.0-100.0)
[2021-06-19] MEDS: ASCORBIC ACID 500 MG TAB PO SCH ×2 (10:23→20:47)
[2021-06-19] MEDS: FERROUS SULFATE 325MG TAB PO SCH ×2 (10:23→20:46)
[2021-06-19] MEDS: FUROSEMIDE 40MG/4ML VIAL (J1940) IV SCH ×2 (10:24→18:36)
--- NOTE | 2021-06-19 13:02 | IPNPDOC ---
Text Note Date of Service The patient was seen on 06/19/21. NOTE Subjective: Patient is a 61-year-old female presented through [facility] ER with chief complaint shortness of breath started around 8 PM yesterday evening. She states that she was home at the time experiencing pressure headache and some shortness of breath was progressively worse. Patient was diagnosed with a CHF exacerbation and has been diuresing. Patient was placed on oxygen as her initial oxygen saturation was 86%. Patient has not been compliant with her 2 L fluid restriction. Patient was doing well this morning but then took a nap and became hypoxic again. Patient was able to be on room air during my initial evaluation but needed to be placed back on oxygen therapy later on in the morning. Review of systems: General: Patient denies fevers HEENT: Patient reports headaches Cardiovascular: Patient denies chest pain Respiratory: Patient reports shortness of breath but denies cough GI: Patient denies abdominal pain, nausea, vomiting, diarrhea : Patient denies increased frequency or pain with urination Extremities: Patient denies swelling or pain in extremities Neurological: Patient denies numbness or tingling in legs Physical exam: Vitals: See below General: Alert and oriented female patient who was sitting up in bed initially without any nasal cannula oxygen but had to be placed back on nasal cannula oxygen upon my reevaluation. Patient did not appear to be in acute distress. HEENT: Normocephalic, atraumatic, moist mucous membranes. Neck: No lymphadenopathy or thyromegaly Cardiac: Regular rate and rhythm, no murmurs, normal S1, normal S2 Pulm: Crackles in the bilateral bases Abd: Nondistended, nontender to palpation, normal bowel sounds Ext: No edema bilateral lower extremities Labs: See below Imaging: No new imaging has been performed Assessment/plan: 61-year-old female with chief complaint of shortness of breath and was diagnosed with an acute on chronic exacerbation of congestive heart failure. 1. Acute hypoxemic respiratory failure in the setting of decompensated heart failure versus community-acquired pneumonia. Patient is noted to have a leukocytosis. Levaquin was started and procalcitonin is pending. Will de- escalate antibiotics depending on procalcitonin therapy. Continue with IV Lasix at this time. We will continue to monitor. When the patient is sleeping, patient has issues with oxygenation. Patient is on home CPAP which she does not have a machine for. 2. Chest pain/pressure. Likely due to ischemic demand. Troponins are negative x3. 3. Mild hypercalcemia. Initial calcium was around 10.6. No ECG changes. Repeat calcium within normal limits. 4. Dyslipidemia. Continue home medications. 5. Obstructive sleep apnea compliant with home CPAP. She did not bring her CPAP home but her settings are CPAP with 12 cm of H2O. 6. Hypertension. Continue home medications. 7. Coronary artery disease. Continue home medications. 8. Class I obesity complicating the patient's care. DVT Prophylaxis: Teds and sequentials Disposition: Pending clinical improvement VS,Davide, I+O VS, Yoanbone, I+O Laboratory Tests 06/19/21 01:37 06/19/21 05:40 Vital Signs Date Time Temp Pulse Resp B/P (MAP) Pulse Ox O2 Delivery O2 Flow Rate FiO2 06/19/21 05:20 92 Nasal Cannula 3.0 06/19/21 05:20 97.2 67 20 107/53 (71) KAYLA MARMOLEJO DO Jun 19, 2021 13:02
--- NOTE | 2021-06-19 13:59 | ECGEPIP ---
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
[2021-06-19 14:00] VITALS: BP 102/56
[2021-06-19] MEDS: METOPROLOL SUCC (TopROL XL) 100MG *XL* TAB PO SCH (20:45)
[2021-06-19] MEDS: METOPROLOL SUCC (TopROL XL) 50MG **XL** TAB PO SCH (20:45)
[2021-06-19] MEDS: ASPIRIN 81 MG CHEW TABLET PO SCH (20:46)
[2021-06-19] MEDS: VITAMIN D 1,000 INTERNATIONAL UNITS TABLET PO SCH (20:47)
[2021-06-19] MEDS: ATORVASTATIN 20 MG TAB PO SCH (20:47)
[2021-06-19] MEDS: OMEPRAZOLE 20 MG CAP PO SCH (20:47)
[2021-06-19] MEDS: POTASSIUM CHLORIDE 10MEQ SR TABLET PO SCH (20:47)
[2021-06-19 22:00] VITALS: BP 102/55; O2SAT 91
[2021-06-20 02:05] VITALS: O2SAT 92
[2021-06-20 06:00] VITALS: BP 102/53
[2021-06-20] MEDS ORDERED: LevoFLOXacin 750 MG TABLET PO SCH (06:00)
[2021-06-20 06:01] LABS: HEMATOCRIT 43.9 % (36.0-47.0); HEMOGLOBIN 14.6 g/dl (12.0-15.5); MEAN CORPUSCULAR HEMOGLOBIN 30.6 pg (27.0-33.0); MEAN CORPUSCULAR HGB CONC 33.3 g/dl (32.0-36.5); PLATELET COUNT, AUTOMATED 126 10^3/uL (150-450); RED BLOOD COUNT 4.77 10^6/uL (4.00-5.40); WHITE BLOOD COUNT 9.3 10^3/uL (4.0-10.0)
[2021-06-20 06:25] LABS: BLOOD UREA NITROGEN 11 MG/DL (7-18); CALCIUM LEVEL 10.3 MG/DL (8.8-10.2); CARBON DIOXIDE LEVEL 31 MEQ/L (21-32); CHLORIDE LEVEL 105 MEQ/L (98-107); CHOLESTEROL LEVEL 144 MG/DL (<200); CHOLESTEROL RISK RATIO 3.348 (<5); GLOMERULAR FILTRATION RATE > 60.0 (>45); GLUCOSE, FASTING 99 MG/DL (70-100); HDL CHOLESTEROL 43 MG/DL (>40); LDL CHOLESTEROL 80 MG/DL (<100); MAGNESIUM LEVEL 2.1 MG/DL (1.8-2.4); NON-HDL-C 101 MG/DL; NT-PRO BNP 2059 PG/ML (<125); SODIUM LEVEL 140 MEQ/L (136-145); TRIGLYCERIDES LEVEL 104 MG/DL (<150)
[2021-06-20] MEDS: FLUTICASONE HFA 110 MCG 12 GM INHALER (FLOVENT) INH SCH ×2 (07:09→19:34)
[2021-06-20] MEDS: ASCORBIC ACID 500 MG TAB PO SCH ×2 (09:14→20:50)
[2021-06-20] MEDS: FUROSEMIDE 40MG/4ML VIAL (J1940) IV SCH (09:14)
[2021-06-20] MEDS: FERROUS SULFATE 325MG TAB PO SCH ×2 (09:14→20:50)
--- NOTE | 2021-06-20 12:10 | IPNPDOC ---
Text Note Date of Service The patient was seen on 06/20/21. NOTE Subjective: Patient is a 61-year-old female presented through [facility] ER with chief complaint shortness of breath around 8 PM 2 days ago. Patient is doing slightly better however, patient's oxygen saturations are borderline at 90% while on room air. Anytime the patient walks around, the patient's oxygen saturations do decrease. Patient is otherwise feeling well and does not complain of any shortness of breath. Patient required being on oxygen throughout most of the night last night and did not like wearing the CPAP machine from the hospital. If the patient stays tonight she will get her sister to bring her home machine in today. Review of systems: General: Patient denies fevers HEENT: Patient denies headaches Cardiovascular: Patient denies chest pain Respiratory: Patient reports shortness of breath with exertion, denies cough GI: Patient denies abdominal pain, nausea, vomiting, diarrhea : Patient denies increased frequency or pain with urination Extremities: Patient denies swelling or pain in extremities Neurological: Patient denies numbness or tingling in legs Physical exam: Vitals: See below General: Alert and oriented female patient was sitting up in bed without nasal cannula on. Patient did not appear to be in any acute distress. HEENT: Normocephalic, atraumatic, moist mucous membranes. Neck: No lymphadenopathy or thyromegaly Cardiac: Regular rate and rhythm, no murmurs, normal S1, normal S2 Pulm: Crackles in bilateral bases Abd: Nondistended, nontender to palpation, normal bowel sounds Ext: No edema bilateral lower extremities Labs: See below Imaging: No new imaging has been performed Assessment/plan: 61-year-old female chief complaint shortness of breath and was diagnosed with acute on chronic exacerbation of congestive heart failure. 1. Acute hypoxemic respiratory failure in the setting of decompensated heart failure versus community-acquired pneumonia. Procalcitonin was negative therefore antibiotics were stopped. We will continue IV Lasix at this time. Patient appears to be nearing euvolemia however, we will have to continue to monitor the patient's respiratory status. Patient is otherwise doing well. Echocardiogram is still pending at this time. Patient echocardiogram in January 2021 which showed enlarged left atrium but was unable to read the patient's pulmonary pressures. I am wondering if pulmonary hypertension is playing a role in the patient's difficulty oxygenation and if this is the case, patient may require home O2. 2. Chest pain/pressure. Resolved. Likely due to ischemic demand. Troponins are negative x3. 3. Mild hypercalcemia. Initial calcium was 10.6. This resolved yesterday but is mildly elevated at 10.3 today. Continue IV Lasix. 4. Dyslipidemia. Continue home medications. 5. Obstructive sleep apnea compliant with home CPAP. She did not like wearing the CPAP machine in the hospital last night. She will get her sister to bring her in her machine for tonight. 6. Hypertension. Continue home medications. 7. Coronary artery disease. Continue medications. 8. Class I obesity complicating the patient's care. DVT Prophylaxis: Teds and sequential Disposition: Pending clinical improvement, patient may need home oxygen. VS,Fishbone, I+O VS, Fishbone, I+O Laboratory Tests 06/20/21 05:28 Vital Signs Date Time Temp Pulse Resp B/P (MAP) Pulse Ox O2 Delivery O2 Flow Rate FiO2 06/20/21 10:29 2.0 06/20/21 06:00 97.6 78 18 102/53 (41) 88 Nasal Cannula I&O- Last 24 Hours up to 6 AM 06/20/21 06:00 Intake Total 2135 ml Output Total 3000 ml Balance -865 ml KAYLA MARMOLEJO DO Jun 20, 2021 12:10
[2021-06-20 14:00] VITALS: BP 110/64
[2021-06-20] MEDS: POTASSIUM CHLORIDE 10MEQ SR TABLET PO SCH (20:50)
[2021-06-20] MEDS: ASPIRIN 81 MG CHEW TABLET PO SCH (20:50)
[2021-06-20] MEDS: ATORVASTATIN 20 MG TAB PO SCH (20:50)
[2021-06-20] MEDS: OMEPRAZOLE 20 MG CAP PO SCH (20:50)
[2021-06-20] MEDS: VITAMIN D 1,000 INTERNATIONAL UNITS TABLET PO SCH (20:51)
[2021-06-20 21:00] VITALS: BP 109/64
[2021-06-20] MEDS: METOPROLOL SUCC (TopROL XL) 100MG *XL* TAB PO SCH (21:00)
[2021-06-20] MEDS: METOPROLOL SUCC (TopROL XL) 50MG **XL** TAB PO SCH (21:00)
[2021-06-20] MEDS: NICOTINE 21MG/24HR 1 EA TRANSDERMAL TD SCH (21:05)
[2021-06-20 22:00] VITALS: BP 109/64
[2021-06-20 23:15] VITALS: O2SAT 92
[2021-06-21 06:00] VITALS: BP 148/76
[2021-06-21 06:16] LABS: HEMATOCRIT 46.7 % (36.0-47.0); HEMOGLOBIN 15.1 g/dl (12.0-15.5); MEAN CORPUSCULAR HEMOGLOBIN 30.3 pg (27.0-33.0); MEAN CORPUSCULAR HGB CONC 32.3 g/dl (32.0-36.5); MEAN CORPUSCULAR VOLUME 93.6 fl (80.0-96.0); PLATELET COUNT, AUTOMATED 129 10^3/uL (150-450); RED BLOOD COUNT 4.99 10^6/uL (4.00-5.40); WHITE BLOOD COUNT 7.6 10^3/uL (4.0-10.0)
[2021-06-21 06:39] LABS: BLOOD UREA NITROGEN 12 MG/DL (7-18); CALCIUM LEVEL 10.8 MG/DL (8.8-10.2); CARBON DIOXIDE LEVEL 33 MEQ/L (21-32); CHLORIDE LEVEL 102 MEQ/L (98-107); CREATININE FOR GFR 0.63 MG/DL (0.55-1.30); GLOMERULAR FILTRATION RATE > 60.0 (>45); GLUCOSE, FASTING 96 MG/DL (70-100); POTASSIUM SERUM 4.5 MEQ/L (3.5-5.1); SODIUM LEVEL 139 MEQ/L (136-145)
[2021-06-21] MEDS: FLUTICASONE HFA 110 MCG 12 GM INHALER (FLOVENT) INH SCH (07:44)
[2021-06-21 08:00] VITALS: BP 140/70
[2021-06-21] MEDS ORDERED: NICO21PAT TD (08:05)
[2021-06-21] MEDS ORDERED: FUROSEMIDE 80 MG TAB PO SCH (09:00)
[2021-06-21] MEDS ORDERED: FUROSEMIDE 40MG/4ML VIAL (J1940) IV SCH (09:00)
[2021-06-21] MEDS: ASCORBIC ACID 500 MG TAB PO SCH (09:07)
[2021-06-21] MEDS: FERROUS SULFATE 325MG TAB PO SCH (09:07)
[2021-06-21] MEDS: NICOTINE 21MG/24HR 1 EA TRANSDERMAL TD SCH (09:08)
--- NOTE | 2021-06-21 16:20 | DS.PDOC ---
Discharge Summary General Date of Admission Jun 19, 2021 at 01:01 Date of Discharge 06/21/2021 Attending Physician: KAYLA MARMOLEJO DO Discharge Summary PROCEDURES PERFORMED DURING STAY: None. ADMITTING DIAGNOSES: 1. Acute hypoxic respiratory failure in setting of decompensated heart failure versus community-acquired pneumonia. 2. Chest pain/pressure 3. Mild hypercalcemia 4. MELANY compliant with CPAP 5. Hypertension 6. Dyslipidemia 7. CAD 8. Obesity DISCHARGE DIAGNOSES: 1. Hypoxia secondary to decompensated congestive heart failure with preserved ejection fraction exacerbation. 2. Chest pain/pressure resolved 3. Mild hypercalcemia resolved 4. Congestive heart failure with preserved ejection fraction 5. Hypertension 6. MELANY compliant with CPAP 7. Dyslipidemia 8. Coronary artery disease 9. Class I obesity COMPLICATIONS/CHIEF COMPLAINT: Dyspnea. HISTORY OF PRESENT ILLNESS: Patient is a 61-year-old female presented to the emergency department she complaint shortness of breath started around 8 PM on the evening of admission, 06/19/2021. Patient states that she got home from work and experienced some pressure in her head and increased shortness of breath is progressively worse especially when laying down flat. She used a nebulizer treatment and took 2 [id number] Tylenol and tried to lay down again but with persistent orthopnea as well as paroxysmal nocturnal dyspnea. Patient reports she had associated chest pressure with shortness of breath. Patient denied increased cough or sputum production or fevers with shaking chills. She does state that she has loss of appetite with unintentional 40 pound weight loss last year. She denies any increased lower extremity swelling and states that she is compliant with all her medications. She does report however drinking 3-4 sodas per day and has not compliant with her 2 L fluid restriction. In the emergency department, she was hypoxic with an SPO2 of 86% on room air. Patient was placed on 3 L nasal cannula to bring her saturation of 94%. Patient's chest pain improved with oxygen supplementation. She denies any recent travel history or been in contact with anyone sick. HOSPITAL COURSE: Patient was admitted for congestive heart failure exacerbation. Patient was given IV Lasix initially 40 mg twice daily. When I first saw the patient in the morning of 06/19/2021, patient still had some crackles and initially was not requiring oxygen however, throughout the day she did require more oxygen. Throughout the day. Patient slept with the CPAP machine in the hospital which she states she did not like so she had to be placed back on oxygen therapy overnight on 06/19/2021. Patient was started on antibiotics however, her procalcitonin was less than 0.05 so antibiotics were stopped on 06/19/2021. On hospital course day 2, patient was feeling better however, she still was requiring oxygen therapy and was feeling short of breath especially with exertion. Patient was weaned down on her oxygen and was able to tolerate room air later in the day. Patient sister brought in her own CPAP machine. Patient's Lasix was switched to 40 mg IV daily on hospital course day 2. Patient was seen on 06/21/2021 and was feeling better. Patient was on room air. Patient did require an oxygen bleed in on her CPAP which she states that she is currently working with her court assistant in order to have a sleep study to add a bleed in to her CPAP. Patient states that that sleep study was supposed to be tonight however, it was canceled due to her hospitalization. Patient is otherwise feeling well and was deemed ready for discharge on 06/21/2021. Patient was saying that she has been trying to quit smoking however, she has been using the 7 mg/day patches that her primary care provider gave her. Patient smokes 1 pack of cigarettes a day and she smokes the 100s which are longer and contain more tobacco than the normal cigarette. I have prescribed the 21 mg/day patch which the patient will knot picker cloth from the pharmacy tomorrow. Patient received a patch today that was scheduled. DISCHARGE MEDICATIONS: Please see below. ALLERGIES: Please see below. PHYSICAL EXAMINATION ON DISCHARGE: VITAL SIGNS: Please see below. General: Alert and oriented female patient who was sitting up in bed when I walked in. Patient not appear to be in any acute distress. HEENT: Normocephalic, atraumatic, moist mucous membranes. Neck: No lymphadenopathy or thyromegaly Cardiac: Regular rate and rhythm, no murmurs, normal S1, normal S2 Pulm: Clear to auscultation bilaterally. No wheezes, rhonchi, rales Abd: Nondistended, nontender to palpation, normal bowel sounds Ext: No edema bilateral lower extremities LABORATORY DATA: Please see below. IMAGING: Chest x-ray performed on 06/19/2021 is where to show linear interstitial densities and basilar predominant airspace opacities suggesting pulmonary edema PROGNOSIS: Fair ACTIVITY: As tolerated. DIET: 2 g sodium with a an 1800 cc fluid restriction DISCHARGE PLAN: Discharge home DISPOSITION: 01 Home, Self-Care. DISCHARGE INSTRUCTIONS: 1. Follow-up with your primary care provider in 3 to 5 days discharge. 2. Start 21 mg/day nicotine patch in order to help quit smoking 3. Follow-up with your court assistant about sleep study for bleed in for your CPAP machine. 4. Return to the emergency department if symptoms worsen ITEMS TO FOLLOWUP ON ON OUTPATIENT: 1. Sleep study for possible bleed in for CPAP machine. DISCHARGE CONDITION: Stable. TIME SPENT ON DISCHARGE: 35 minutes. Vital Signs/I&Os Vital Signs Date Time Temp Pulse Resp B/P (MAP) Pulse Ox O2 Delivery O2 Flow Rate FiO2 06/21/21 08:00 97.4 76 18 140/70 (93) 92 Room Air 06/20/21 23:15 1.0 I&O- Last 24 Hours up to 6 AM 06/21/21 06:00 Intake Total 1668 ml Output Total 2000 ml Balance -332 ml Laboratory Data Labs 24H Laboratory Tests 2 06/21/21 05:49: Nucleated Red Blood Cells % (auto) 0.0, Anion Gap 4L, Glomerular Filtration Rate > 60.0, Calcium Level 10.8H, Magnesium Level 2.0 CBC/BMP Laboratory Tests 06/21/21 05:49 Microbiology Microbiology 06/19/21 Blood Culture - Preliminary, Resulted No Growth after 48 hours. All Specime... 06/19/21 Blood Culture - Preliminary, Resulted No Growth after 48 hours. All Specime... Discharge Medications Scheduled Ascorbic Acid (Vitamin C) 500 Mg Tablet, 500 MG PO BID, (Reported) Aspirin (Aspirin) 81 Mg Tab.chew, 81 MG PO QHS, (Reported) Atorvastatin Calcium (Atorvastatin Calcium) 80 Mg Tablet, 80 MG PO QHS, (Reported) Cholecalciferol (Vitamin D3) (Vitamin D3) 1,000 Unit Tablet, 1,000 UNITS PO QHS, (Reported) Ferrous Sulfate (Ferrous Sulfate) 325 Mg Tablet, 325 MG PO BID, (Reported) Fluticasone Propionate (Flovent Hfa) 110 Mcg/Act Aer.w.adap, 2 PUFF INH BID, (Reported) Furosemide (Furosemide) 40 Mg Tablet, 80 MG PO DAILY, (Reported) Metoprolol Succinate (Metoprolol Succinate) 100 Mg Tab.er.24h, 100 MG PO QHS, (Reported) TAKES WITH 50MG FOR 150 MG TOTAL Metoprolol Succinate (Metoprolol Succinate) 50 Mg Tab.er.24h, 50 MG PO QHS, (Reported) TAKES WITH 100MG FOR 150MG TOTAL Nicotine (Nicotine Patch) 21 Mg Patch.td24, 1 PATCH TD DAILY Omeprazole (Omeprazole) 20 Mg Capsule.dr, 40 MG PO QHS, (Reported) Potassium Chloride (K-Tab ER) 10 Meq Tab, 10 MEQ PO QHS, (Reported) Scheduled PRN Albuterol Sulf (Albuterol Sulfate) 2.5 Mg/3 Ml Vial.neb, 2.5 MG PO Q4H PRN for SHORTNESS OF BREATH, (Reported) Albuterol Sulfate (Proair Hfa) 108 Mcg/Act Aer, 2 PUFFS INH Q4H PRN for SHORTNESS OF BREATH, (Reported) Allergies Coded Allergies: Penicillins (Verified Allergy, Unknown, 02/22/19) KAYLA Her DO Jun 21, 2021 16:19
[2021-06-21 21:08] LABS: BODY FLUID CULTURE Not indicated. (.); LEGIONELLA ANTIGEN URINE Negative (Negative); ORGANISM ID Not indicated. (.); SPECIMEN SOURCE Urine (.); URINE STREP PNEUMONIAE ANTIGEN Negative (Negative)
== END 2021-06-21 11:49 | disposition home or self-care (01) | DRG 291 ==
LOC: M ED 01:00 → M ED INP 01:01 → ENRESERV 04:21 → M MSPAV 05:15
PROVIDERS: ADMIT Internal Medicine; ATTEND Family Medicine
DX: I11.0 Hypertensive heart disease with heart failure (principal); J96.01 Acute respiratory failure with hypoxia; I50.33 Acute on chronic diastolic (congestive) heart failure; E83.52 Hypercalcemia; G47.33 Obstructive sleep apnea (adult) (pediatric); E78.5 Hyperlipidemia, unspecified; I25.10 Atherosclerotic heart disease of native coronary artery without angina pectoris; E66.9 Obesity, unspecified; Z91.19 Patient's noncompliance with other medical treatment and regimen; K21.9 Gastro-esophageal reflux disease without esophagitis; Z20.822 Contact with and (suspected) exposure to COVID-19; Z79.82 Long term (current) use of aspirin; Z79.899 Other long term (current) drug therapy; Z88.0 Allergy status to penicillin; Z68.33 Body mass index [BMI] 33.0-33.9, adult

== ENCOUNTER → 2021-07-06 | Outpatient (CLI) | payer OTHER ==
[~2021-07-06] MED LIST changes: +FLUT11IN INH; +METO1TAB7 PO; +NICO21PAT TD
--- NOTE | 2021-07-11 13:59 | SLEEPCENT ---
DATE: 07/06/2021 ORDERED BY: Dr. Solano Nocturnal polysomnography was performed for the retitration of pressure therapy in this patient with obstructive sleep apnea syndrome. For testing, a ResMed AirFit F20 full-face mask of small size was used. There was 10 cm of water pressure initially applied to the circuit, and the lights were extinguished. There was 8 hours and 20 minutes of data reviewed. There was 466 minutes of sleep identified. Sleep latency was short at 6 minutes. REM latency was prolonged at 170 minutes. Sleep architecture was good with three REM cycles. Overall sleep efficiency 94.9%. The electrocardiogram showed a sinus rhythm with small complexes, average heart rate 62 beats per minute. EEG showed normal waveforms for wake and sleep stages. Respiratory events were found best palliated with CPAP at a pressure of 16. Despite optimal palliation of obstructive events, hypoxemia prompted the addition of supplemental oxygen. Best sleep was seen on a CPAP pressure of 16 with 2 liters of oxygen bled through the system. IMPRESSION: Obstructive sleep apnea syndrome. RECOMMENDATION: Nightly use of CPAP, 16 cm with 2 liters of oxygen bled through the system to address hypoventilatory desaturations.
== END ==
LOC: M SLEEP 20:00
PROVIDERS: ATTEND Internal Medicine Pulmonary Disease
DX: G47.33 Obstructive sleep apnea (adult) (pediatric) (principal); J45.40 Moderate persistent asthma, uncomplicated

== ENCOUNTER → 2021-08-31 | Outpatient (CLI) | payer OTHER ==
--- NOTE | 2021-09-01 19:01 | REP ---
INDICATION: SMOKER COMPARISON: 08/21/2020 TECHNIQUE: Axial noncontrast images from the thoracic inlet to the upper abdomen using low-dose lung screening technique (LDCT). FINDINGS: Chronic interstitial changes are again noted. There is a new 7.5 mm nodular density in the left suprahilar lung zone (series 201; image 26). No further suspicious nodule or mass. No consolidation. No effusion. No pneumothorax. Limited evaluation of the mediastinum demonstrates stable adenopathy, cardiomegaly and atherosclerotic disease. IMPRESSION: New 7.5 mm nodular density in the left suprahilar lung zone. Six-month follow-up examination is recommended. <Electronically signed by Manolo Higuera > 09/01/21 [id number]
== END ==
LOC: M RAD 14:28
PROVIDERS: ATTEND Internal Medicine Pulmonary Disease
DX: Z12.2 Encounter for screening for malignant neoplasm of respiratory organs (principal); F17.218 Nicotine dependence, cigarettes, with other nicotine-induced disorders; R91.8 Other nonspecific abnormal finding of lung field

== ENCOUNTER → 2021-12-11 | Outpatient (CLI) | payer OTHER ==
[~2021-12-11] MED LIST changes: -D31000TA2 PO; +OMEP-173 PO; -OMEP-218 PO; +VITA100093 PO
== END ==
LOC: M PLAIMG 11:25
PROVIDERS: ATTEND Internal Medicine Pulmonary Disease
DX: R91.8 Other nonspecific abnormal finding of lung field (principal)

== ENCOUNTER 2022-01-10 14:44 | Inpatient (IN) | payer OTHER ==
[~2022-01-10] VITALS: Ht 162.6 cm; Wt 83.5 kg
[2022-01-10] MEDS ORDERED: FLUT1BLS8 INH (16:14)
[2022-01-10 18:37] LABS: VENOUS BASE EXCESS 2.5 (-2.0-2.0); VENOUS HCO3 27.3 MEQ/L (23.0-27.0); VENOUS O2 SATURATION 94.6 % (60.0-80.0); VENOUS PARTIAL PRESSURE CO2 43.1 mmHg (38.0-50.0); VENOUS PARTIAL PRESSURE O2 70.2 mmHg (30.0-50.0); VENOUS STANDARD HCO3 26.6 MEQ/L; VENOUS TOTAL CO2 28.7 MEQ/L (24.0-28.0)
[2022-01-10 18:42] LABS: BASO # 0.1 10^3/uL (0.0-0.2); BASO % 0.8 % (0.0-1.0); EOS # 0.3 10^3/uL (0.0-0.5); EOS % 2.5 % (0.0-3.0); HEMATOCRIT 41.1 % (36.0-47.0); HEMOGLOBIN 13.8 g/dl (12.0-15.5); LYMPH # 2.5 10^3/uL (1.5-5.0); LYMPH % 24.9 % (24.0-44.0); MEAN CORPUSCULAR HEMOGLOBIN 32.5 pg (27.0-33.0); MEAN CORPUSCULAR HGB CONC 33.6 g/dl (32.0-36.5); MEAN CORPUSCULAR VOLUME 96.7 fl (80.0-96.0); MONO # 0.8 10^3/uL (0.0-0.8); MONO % 7.7 % (2.0-8.0); NEUTROPHILS # 6.4 10^3/uL (1.5-8.5); NEUTROPHILS % 63.8 % (36.0-66.0); PLATELET COUNT, AUTOMATED 165 10^3/uL (150-450); RED BLOOD COUNT 4.25 10^6/uL (4.00-5.40); WHITE BLOOD COUNT 10.1 10^3/uL (4.0-10.0)
[2022-01-10] MEDS ORDERED: FUROSEMIDE 40MG/4ML VIAL (J1940) IV ONE (19:00)
[2022-01-10 19:11] LABS: ALBUMIN 3.5 GM/DL (3.2-5.2); ALT/SGPT 27 U/L (12-78); BILIRUBIN,DIRECT 0.2 MG/DL (0.0-0.2); BILIRUBIN,TOTAL 0.8 MG/DL (0.2-1.0); BLOOD UREA NITROGEN 11 MG/DL (7-18); CALCIUM LEVEL 10.7 MG/DL (8.8-10.2); CARBON DIOXIDE LEVEL 27 MEQ/L (21-32); CHLORIDE LEVEL 108 MEQ/L (98-107); CREATININE FOR GFR 0.51 MG/DL (0.55-1.30); GLOMERULAR FILTRATION RATE > 60.0 (>45); GLUCOSE, FASTING 86 MG/DL (70-100); NT-PRO BNP 1289 PG/ML (<125); SODIUM LEVEL 142 MEQ/L (136-145); TOTAL PROTEIN 7.5 GM/DL (6.4-8.2)
[2022-01-10 19:33] LABS: RSV AMPLIFICATION NEGATIVE (NEGATIVE)
[2022-01-10] MEDS ORDERED: FURO40TA2 PO (20:01)
[2022-01-10] MEDS ORDERED: VITA1CAP25 PO (20:01)
[2022-01-10] MEDS ORDERED: HOME MED LIST COMPLETE! XX SCH (20:05)
[2022-01-10] MEDS ORDERED: ISOVUE-370 76% 100ML VIAL As Ordered ONE (20:27)
[2022-01-10] MEDS ORDERED: METOPROLOL SUCC (TopROL XL) 100MG *XL* TAB PO SCH (21:00)
[2022-01-10] MEDS ORDERED: METOPROLOL SUCC (TopROL XL) 50MG **XL** TAB PO SCH (21:00)
[2022-01-11] MEDS: ASPIRIN 81 MG CHEW TABLET PO SCH ×2 (00:18→20:21)
[2022-01-11] MEDS: ATORVASTATIN 20 MG TAB PO SCH ×2 (00:19→20:21)
[2022-01-11] MEDS ORDERED: ALBUTEROL 90 MCG/ACT 8GM HFA INHALER INH PRN (00:45)
[2022-01-11 02:24] VITALS: BP 118/64
[2022-01-11] MEDS: HEPARIN SOD (PORCINE) 5000UNITS/ML 1ML VIAL/SYRINGE SC SCH ×3 (05:50→20:22)
[2022-01-11 05:57] VITALS: BP 117/63
[2022-01-11] MEDS ORDERED: metOLazone 5 MG TAB PO ONE (07:35)
[2022-01-11 07:37] LABS: BLOOD UREA NITROGEN 10 MG/DL (7-18); CALCIUM LEVEL 9.9 MG/DL (8.8-10.2); CARBON DIOXIDE LEVEL 32 MEQ/L (21-32); CHLORIDE LEVEL 104 MEQ/L (98-107); CREATININE FOR GFR 0.54 MG/DL (0.55-1.30); GLOMERULAR FILTRATION RATE > 60.0 (>45); GLUCOSE, FASTING 84 MG/DL (70-100); POTASSIUM SERUM 3.6 MEQ/L (3.5-5.1); SODIUM LEVEL 141 MEQ/L (136-145)
[2022-01-11 08:08] LABS: NT-PRO BNP 1083 PG/ML (<125)
[2022-01-11] MEDS: IPRATROPIUM HFA INHALER 12.9 GRAMS (ATROVENT HFA) INH SCH ×4 (08:37→19:26)
[2022-01-11] MEDS ORDERED: FUROSEMIDE 40MG/4ML VIAL (J1940) IV SCH (09:00)
[2022-01-11] MEDS: FERROUS SULFATE 325MG TAB PO SCH ×2 (11:35→20:21)
[2022-01-11] MEDS: FUROSEMIDE 40MG/4ML VIAL (J1940) IV SCH ×3 (11:36→18:37)
[2022-01-11] MEDS: PANTOPRAZOLE 40MG TAB (PROTONIX) PO SCH (11:41)
[2022-01-11 14:00] VITALS: BP 148/74
[2022-01-11 15:53] VITALS: BP 102/60
[2022-01-11] MEDS: TRELEGY ELLIPTA INH SCH (16:30)
[2022-01-11 16:35] LABS: BLOOD UREA NITROGEN 14 MG/DL (7-18); CALCIUM LEVEL 11.3 MG/DL (8.8-10.2); CARBON DIOXIDE LEVEL 34 MEQ/L (21-32); CHLORIDE LEVEL 99 MEQ/L (98-107); CREATININE FOR GFR 0.66 MG/DL (0.55-1.30); GLOMERULAR FILTRATION RATE > 60.0 (>45); GLUCOSE, FASTING 100 MG/DL (70-100); MAGNESIUM LEVEL 2.3 MG/DL (1.8-2.4); POTASSIUM SERUM 3.8 MEQ/L (3.5-5.1); SODIUM LEVEL 139 MEQ/L (136-145)
[2022-01-11 17:03] LABS: CK-MB VALUE MASS 1.3 NG/ML (<3.6); MB/CK RELATIVE INDEX 2.24 (< OR =4)
[2022-01-11 18:00] VITALS: BP 142/73
[2022-01-11] MEDS ORDERED: ACETAMINOPHEN 500 MG TAB PO ONE (18:40)
[2022-01-11] MEDS ORDERED: FUROSEMIDE injection 250 MG in D5W 225 ML IV SCH (20:00)
[2022-01-11] MEDS: POTASSIUM CHLORIDE 10MEQ SR TABLET PO SCH (20:21)
[2022-01-11] MEDS: METOPROLOL SUCC (TopROL XL) 100MG *XL* TAB PO SCH (20:22)
[2022-01-11] MEDS ORDERED: NON-FORMULARY 1 EA EA INH SCH (21:00)
[2022-01-11 22:30] VITALS: BP 120/60
[2022-01-12 05:09] VITALS: BP 140/82
[2022-01-12] MEDS: HEPARIN SOD (PORCINE) 5000UNITS/ML 1ML VIAL/SYRINGE SC SCH ×3 (05:17→21:16)
[2022-01-12] MEDS ORDERED: metOLazone 5 MG TAB PO ONE (07:45)
[2022-01-12] MEDS: IPRATROPIUM HFA INHALER 12.9 GRAMS (ATROVENT HFA) INH SCH ×4 (07:49→18:09)
[2022-01-12] MEDS: TRELEGY ELLIPTA INH SCH (07:49)
[2022-01-12] MEDS ORDERED: MIDODRINE 5 MG TAB PO SCH (08:00)
[2022-01-12] MEDS: FUROSEMIDE 40MG/4ML VIAL (J1940) IV SCH ×4 (08:53→21:16)
[2022-01-12] MEDS: FERROUS SULFATE 325MG TAB PO SCH ×2 (08:54→21:16)
[2022-01-12] MEDS: PANTOPRAZOLE 40MG TAB (PROTONIX) PO SCH (08:54)
[2022-01-12] MEDS: POTASSIUM CHLORIDE 10MEQ SR TABLET PO SCH ×2 (08:54→21:17)
[2022-01-12 09:28] LABS: BLOOD UREA NITROGEN 21 MG/DL (7-18); CALCIUM LEVEL 11.1 MG/DL (8.8-10.2); CARBON DIOXIDE LEVEL 35 MEQ/L (21-32); CHLORIDE LEVEL 94 MEQ/L (98-107); CREATININE FOR GFR 0.87 MG/DL (0.55-1.30); GLOMERULAR FILTRATION RATE > 60.0 (>45); GLUCOSE, FASTING 109 MG/DL (70-100); MAGNESIUM LEVEL 2.2 MG/DL (1.8-2.4); POTASSIUM SERUM 4.2 MEQ/L (3.5-5.1); SODIUM LEVEL 135 MEQ/L (136-145)
[2022-01-12] MEDS: ACETAMINOPHEN TAB 650MG DOSE (2X325MG) PO PRN (11:28)
[2022-01-12] MEDS: NICOTINE 21MG/24HR 1 EA TRANSDERMAL TD SCH (11:28)
[2022-01-12 14:00] VITALS: BP 118/80
[2022-01-12 16:21] LABS: BLOOD UREA NITROGEN 26 MG/DL (7-18); CALCIUM LEVEL 11.9 MG/DL (8.8-10.2); CARBON DIOXIDE LEVEL 30 MEQ/L (21-32); CHLORIDE LEVEL 93 MEQ/L (98-107); GLOMERULAR FILTRATION RATE > 60.0 (>45); GLUCOSE, FASTING 135 MG/DL (70-100); POTASSIUM SERUM 3.7 MEQ/L (3.5-5.1); SODIUM LEVEL 133 MEQ/L (136-145)
[2022-01-12 20:14] VITALS: BP 129/73
[2022-01-12] MEDS: METOPROLOL SUCC (TopROL XL) 100MG *XL* TAB PO SCH (21:17)
[2022-01-12] MEDS: ASPIRIN 81 MG CHEW TABLET PO SCH (21:17)
[2022-01-12] MEDS: ATORVASTATIN 20 MG TAB PO SCH (21:17)
[2022-01-12 23:28] LABS: CREATININE FOR GFR 1.1 MG/DL (0.55-1.30); GLOMERULAR FILTRATION RATE 53.9 (>45); MAGNESIUM LEVEL 1.9 MG/DL (1.8-2.4); POTASSIUM SERUM 3.7 MEQ/L (3.5-5.1)
[2022-01-13] MEDS: FUROSEMIDE 40MG/4ML VIAL (J1940) IV SCH ×2 (01:17→05:01)
[2022-01-13] MEDS ORDERED: diphenhydrAMINE 25MG CAP PO ONE (01:25)
[2022-01-13 05:00] VITALS: BP 123/73
[2022-01-13] MEDS: HEPARIN SOD (PORCINE) 5000UNITS/ML 1ML VIAL/SYRINGE SC SCH ×3 (05:01→20:11)
[2022-01-13 06:54] LABS: CALCIUM LEVEL 11.3 MG/DL (8.8-10.2); CREATININE FOR GFR 1.11 MG/DL (0.55-1.30); GLOMERULAR FILTRATION RATE 53.4 (>45); MAGNESIUM LEVEL 2.1 MG/DL (1.8-2.4)
[2022-01-13] MEDS: IPRATROPIUM HFA INHALER 12.9 GRAMS (ATROVENT HFA) INH SCH ×4 (07:38→19:11)
[2022-01-13] MEDS: TRELEGY ELLIPTA INH SCH (07:39)
[2022-01-13] MEDS: ASCORBIC ACID 500 MG TAB PO SCH ×2 (08:59→20:10)
[2022-01-13] MEDS: FERROUS SULFATE 325MG TAB PO SCH ×2 (08:59→20:10)
[2022-01-13] MEDS: PANTOPRAZOLE 40MG TAB (PROTONIX) PO SCH (08:59)
[2022-01-13] MEDS: NICOTINE 21MG/24HR 1 EA TRANSDERMAL TD SCH (08:59)
[2022-01-13] MEDS ORDERED: FUROSEMIDE 80 MG TAB PO SCH (09:00)
[2022-01-13] MEDS ORDERED: TOLVAPTAN 7.5 MG HALF-TAB PO ONE (09:00)
[2022-01-13 12:59] LABS: BLOOD UREA NITROGEN 37 MG/DL (7-18); CALCIUM LEVEL 11.4 MG/DL (8.8-10.2); CARBON DIOXIDE LEVEL 30 MEQ/L (21-32); CHLORIDE LEVEL 88 MEQ/L (98-107); CREATININE FOR GFR 0.94 MG/DL (0.55-1.30); GLOMERULAR FILTRATION RATE > 60.0 (>45); GLUCOSE, FASTING 106 MG/DL (70-100); POTASSIUM SERUM 3.3 MEQ/L (3.5-5.1); SODIUM LEVEL 129 MEQ/L (136-145)
[2022-01-13 14:00] VITALS: BP 128/72
[2022-01-13] MEDS ORDERED: POTASSIUM CHLORIDE 10MEQ SR TABLET PO ONE (14:00)
[2022-01-13 18:55] LABS: CALCIUM LEVEL 11.3 MG/DL (8.8-10.2); CREATININE FOR GFR 1.1 MG/DL (0.55-1.30); GLOMERULAR FILTRATION RATE 53.9 (>45); POTASSIUM SERUM 3.9 MEQ/L (3.5-5.1)
[2022-01-13] MEDS ORDERED: TOLVAPTAN 15 MG TAB (SAMSCA) PO ONE (19:05)
[2022-01-13 20:00] VITALS: BP 129/65
[2022-01-13] MEDS: ASPIRIN 81 MG CHEW TABLET PO SCH (20:10)
[2022-01-13] MEDS: OMEPRAZOLE 20MG CAP PO SCH (20:10)
[2022-01-13] MEDS: POTASSIUM CHLORIDE 10MEQ SR TABLET PO SCH (20:11)
[2022-01-13] MEDS: ATORVASTATIN 20 MG TAB PO SCH (20:11)
[2022-01-13] MEDS: METOPROLOL SUCC (TopROL XL) 100MG *XL* TAB PO SCH (20:12)
[2022-01-14 00:09] LABS: BLOOD UREA NITROGEN 38 MG/DL (7-18); CALCIUM LEVEL 10.8 MG/DL (8.8-10.2); CARBON DIOXIDE LEVEL 26 MEQ/L (21-32); CHLORIDE LEVEL 90 MEQ/L (98-107); CREATININE FOR GFR 0.92 MG/DL (0.55-1.30); GLOMERULAR FILTRATION RATE > 60.0 (>45); GLUCOSE, FASTING 113 MG/DL (70-100); POTASSIUM SERUM 3.7 MEQ/L (3.5-5.1); SODIUM LEVEL 126 MEQ/L (136-145)
[2022-01-14] MEDS: HEPARIN SOD (PORCINE) 5000UNITS/ML 1ML VIAL/SYRINGE SC SCH ×3 (05:37→21:19)
[2022-01-14 06:00] VITALS: BP 133/77
[2022-01-14 06:57] LABS: CALCIUM LEVEL 11.1 MG/DL (8.8-10.2); CREATININE FOR GFR 1.12 MG/DL (0.55-1.30); GLOMERULAR FILTRATION RATE 52.8 (>45); MAGNESIUM LEVEL 2.2 MG/DL (1.8-2.4); POTASSIUM SERUM 4.1 MEQ/L (3.5-5.1)
[2022-01-14] MEDS: TRELEGY ELLIPTA INH SCH (07:43)
[2022-01-14] MEDS: IPRATROPIUM HFA INHALER 12.9 GRAMS (ATROVENT HFA) INH SCH ×4 (07:44→19:50)
[2022-01-14] MEDS ORDERED: TOLVAPTAN 15 MG TAB (SAMSCA) PO ONE (09:00)
[2022-01-14] MEDS: ASCORBIC ACID 500 MG TAB PO SCH ×2 (09:54→21:21)
[2022-01-14] MEDS: FERROUS SULFATE 325MG TAB PO SCH ×2 (09:54→21:20)
[2022-01-14] MEDS: SODIUM CHLORIDE 1 GM TAB PO SCH ×3 (09:54→17:27)
[2022-01-14] MEDS: PANTOPRAZOLE 40MG TAB (PROTONIX) PO SCH (09:54)
[2022-01-14] MEDS: NICOTINE 21MG/24HR 1 EA TRANSDERMAL TD SCH (09:55)
[2022-01-14 12:23] LABS: BLOOD UREA NITROGEN 38 MG/DL (7-18); CALCIUM LEVEL 11.8 MG/DL (8.8-10.2); CARBON DIOXIDE LEVEL 27 MEQ/L (21-32); CHLORIDE LEVEL 92 MEQ/L (98-107); CREATININE FOR GFR 0.73 MG/DL (0.55-1.30); GLOMERULAR FILTRATION RATE > 60.0 (>45); GLUCOSE, FASTING 99 MG/DL (70-100); POTASSIUM SERUM 3.8 MEQ/L (3.5-5.1); SODIUM LEVEL 129 MEQ/L (136-145)
[2022-01-14 14:00] VITALS: BP 118/68
[2022-01-14 18:16] LABS: BLOOD UREA NITROGEN 38 MG/DL (7-18); CALCIUM LEVEL 11.4 MG/DL (8.8-10.2); CARBON DIOXIDE LEVEL 31 MEQ/L (21-32); CHLORIDE LEVEL 94 MEQ/L (98-107); CREATININE FOR GFR 0.92 MG/DL (0.55-1.30); GLOMERULAR FILTRATION RATE > 60.0 (>45); GLUCOSE, FASTING 120 MG/DL (70-100); POTASSIUM SERUM 3.7 MEQ/L (3.5-5.1); SODIUM LEVEL 128 MEQ/L (136-145)
[2022-01-14 19:24] VITALS: BP 119/83
[2022-01-14 21:00] VITALS: BP 113/75
[2022-01-14] MEDS: METOPROLOL SUCC (TopROL XL) 100MG *XL* TAB PO SCH (21:00)
[2022-01-14] MEDS: OMEPRAZOLE 20MG CAP PO SCH (21:20)
[2022-01-14] MEDS: ASPIRIN 81 MG CHEW TABLET PO SCH (21:20)
[2022-01-14] MEDS: ATORVASTATIN 20 MG TAB PO SCH (21:20)
[2022-01-14] MEDS: POTASSIUM CHLORIDE 10MEQ SR TABLET PO SCH (21:22)
[2022-01-14] MEDS: ACETAMINOPHEN TAB 650MG DOSE (2X325MG) PO PRN (21:59)
[2022-01-15] MEDS: HEPARIN SOD (PORCINE) 5000UNITS/ML 1ML VIAL/SYRINGE SC SCH (05:35)
[2022-01-15 06:00] VITALS: BP 113/75
[2022-01-15 06:00] LABS: BLOOD UREA NITROGEN 31 MG/DL (7-18); CALCIUM LEVEL 11.5 MG/DL (8.8-10.2); CARBON DIOXIDE LEVEL 34 MEQ/L (21-32); CHLORIDE LEVEL 96 MEQ/L (98-107); CREATININE FOR GFR 0.82 MG/DL (0.55-1.30); GLOMERULAR FILTRATION RATE > 60.0 (>45); GLUCOSE, FASTING 116 MG/DL (70-100); MAGNESIUM LEVEL 2.2 MG/DL (1.8-2.4); POTASSIUM SERUM 3.6 MEQ/L (3.5-5.1); SODIUM LEVEL 132 MEQ/L (136-145)
[2022-01-15] MEDS: IPRATROPIUM HFA INHALER 12.9 GRAMS (ATROVENT HFA) INH SCH ×2 (07:36→11:03)
[2022-01-15] MEDS: TRELEGY ELLIPTA INH SCH (07:36)
[2022-01-15] MEDS: SODIUM CHLORIDE 1 GM TAB PO SCH (08:35)
[2022-01-15] MEDS: FERROUS SULFATE 325MG TAB PO SCH (08:35)
[2022-01-15] MEDS: ASCORBIC ACID 500 MG TAB PO SCH (08:35)
[2022-01-15] MEDS: PANTOPRAZOLE 40MG TAB (PROTONIX) PO SCH (08:35)
[2022-01-15] MEDS: NICOTINE 21MG/24HR 1 EA TRANSDERMAL TD SCH (08:36)
[2022-01-15 08:50] VITALS: BP 113/75
== END 2022-01-15 11:28 | disposition home or self-care (01) | DRG 292 ==
LOC: M ED 14:44 → M ED INP 23:44 → ENRESERV 01-11 00:40 → M MSPAV 01-11 01:54
PROVIDERS: ADMIT Internal Medicine; ATTEND General Practice
DX: I11.0 Hypertensive heart disease with heart failure (principal); J96.11 Chronic respiratory failure with hypoxia; E87.1 Hypo-osmolality and hyponatremia; I50.33 Acute on chronic diastolic (congestive) heart failure; J44.9 Chronic obstructive pulmonary disease, unspecified; I25.10 Atherosclerotic heart disease of native coronary artery without angina pectoris; Z79.82 Long term (current) use of aspirin; I34.0 Nonrheumatic mitral (valve) insufficiency; Z79.899 Other long term (current) drug therapy; Z20.822 Contact with and (suspected) exposure to COVID-19; Z88.0 Allergy status to penicillin; G47.33 Obstructive sleep apnea (adult) (pediatric); F17.210 Nicotine dependence, cigarettes, uncomplicated; K21.9 Gastro-esophageal reflux disease without esophagitis; E78.5 Hyperlipidemia, unspecified; E66.9 Obesity, unspecified; Z68.31 Body mass index [BMI] 31.0-31.9, adult; E83.52 Hypercalcemia; Z99.81 Dependence on supplemental oxygen

== ENCOUNTER 2022-01-18 19:37 | Inpatient (IN) | payer OTHER ==
[~2022-01-18] VITALS: Ht 162.6 cm; Wt 86.9 kg
[~2022-01-18 19:37] MED LIST changes: +FLUT1BLS8 INH; +VITA1CAP25 PO
[2022-01-18] MEDS ORDERED: LEVALBUTEROL 1.25 MG/0.5 ML CONCENTRATE NEB NEB ONE (19:50)
[2022-01-18 20:10] LABS: ABG BASE EXCESS 2.9 (-2.0-2.0); ABG HCO3 27.1 MEQ/L (22.0-26.0); ABG O2 SATURATION 93.7 % (95.0-99.0); ABG PARTIAL PRESSURE CO2 40.1 mmHg (35.0-45.0); ABG PARTIAL PRESSURE O2 65.6 mmHg (75.0-100.0); ABG TOTAL CO2 28.4 MEQ/L (23.0-31.0); ABG pH (ARTERIAL) 7.448 UNITS (7.350-7.450)
[2022-01-18 20:12] LABS: BASO # 0.1 10^3/uL (0.0-0.2); BASO % 0.5 % (0.0-1.0); EOS # 0.2 10^3/uL (0.0-0.5); EOS % 1.1 % (0.0-3.0); HEMATOCRIT 41.7 % (36.0-47.0); HEMOGLOBIN 13.8 g/dl (12.0-15.5); LYMPH # 2.6 10^3/uL (1.5-5.0); MEAN CORPUSCULAR HEMOGLOBIN 31.4 pg (27.0-33.0); MEAN CORPUSCULAR HGB CONC 33.1 g/dl (32.0-36.5); MONO # 1.3 10^3/uL (0.0-0.8); MONO % 9.5 % (2.0-8.0); NEUTROPHILS % 70.5 % (36.0-66.0); PLATELET COUNT, AUTOMATED 126 10^3/uL (150-450); RED BLOOD COUNT 4.39 10^6/uL (4.00-5.40); WHITE BLOOD COUNT 14.2 10^3/uL (4.0-10.0)
[2022-01-18 20:29] LABS: ALBUMIN 3.6 GM/DL (3.2-5.2); ALT/SGPT 44 U/L (12-78); BILIRUBIN,TOTAL 1.1 MG/DL (0.2-1.0); BLOOD UREA NITROGEN 18 MG/DL (7-18); CALCIUM LEVEL 10.7 MG/DL (8.8-10.2); CARBON DIOXIDE LEVEL 30 MEQ/L (21-32); CHLORIDE LEVEL 104 MEQ/L (98-107); CK-MB VALUE MASS 1.6 NG/ML (<3.6); CREATININE FOR GFR 0.65 MG/DL (0.55-1.30); GLOMERULAR FILTRATION RATE > 60.0 (>45); GLUCOSE, FASTING 111 MG/DL (70-100); LIPASE 70 U/L (73-393); MB/CK RELATIVE INDEX 2.76 (< OR =4); NT-PRO BNP 3102 PG/ML (<125); POTASSIUM SERUM 3.5 MEQ/L (3.5-5.1); SODIUM LEVEL 139 MEQ/L (136-145); TOTAL PROTEIN 7.7 GM/DL (6.4-8.2)
[2022-01-18] MEDS ORDERED: METOPROLOL SUCC (TopROL XL) 50MG **XL** TAB PO SCH (21:00)
[2022-01-18] MEDS: OMEPRAZOLE 20MG CAP PO SCH (21:00)
[2022-01-18] MEDS: FERROUS SULFATE 325MG TAB PO SCH (21:00)
[2022-01-18] MEDS: ATORVASTATIN 20 MG TAB PO SCH (21:00)
[2022-01-18] MEDS ORDERED: FUROSEMIDE 100MG/10ML VIAL (J1940) IV ONE (21:20)
[2022-01-18] MEDS ORDERED: SPIR-10 PO (22:18)
[2022-01-18] MEDS ORDERED: MED REC COMMENT (22:18)
[2022-01-18] MEDS ORDERED: HOME MED LIST COMPLETE! XX SCH (22:20)
[2022-01-18] MEDS ORDERED: ISOSORBIDE DIN (ISORDIL) 10MG TAB PO SCH (23:05)
[2022-01-18] MEDS ORDERED: ALBUTEROL SULFATE 2.5 MG/0.5 ML INH NEB SOLN NEB ONE (23:45)
[2022-01-19 00:30] VITALS: BP 128/58
[2022-01-19] MEDS: IPRATROPIUM 0.5MG/ALBUTEROL 2.5MG INH SOL UD 3ML (DUONEB) NEB SCH ×4 (03:55→19:58)
[2022-01-19 04:00] VITALS: BP 109/58
[2022-01-19] MEDS: HEPARIN SOD (PORCINE) 5000UNITS/ML 1ML VIAL/SYRINGE SC SCH ×3 (05:09→21:03)
[2022-01-19 06:33] LABS: BLOOD UREA NITROGEN 15 MG/DL (7-18); CALCIUM LEVEL 10.1 MG/DL (8.8-10.2); CARBON DIOXIDE LEVEL 29 MEQ/L (21-32); CHLORIDE LEVEL 103 MEQ/L (98-107); CREATININE FOR GFR 0.51 MG/DL (0.55-1.30); GLOMERULAR FILTRATION RATE > 60.0 (>45); GLUCOSE, FASTING 107 MG/DL (70-100); MAGNESIUM LEVEL 1.7 MG/DL (1.8-2.4); POTASSIUM SERUM 3.2 MEQ/L (3.5-5.1); SODIUM LEVEL 140 MEQ/L (136-145)
[2022-01-19] MEDS ORDERED: POTASSIUM CHLORIDE 10MEQ SR TABLET PO ONE (07:35)
[2022-01-19] MEDS ORDERED: MAGNESIUM OXIDE 400MG TAB (MAG-OX) PO ONE (07:50)
[2022-01-19 08:01] VITALS: BP 112/58
[2022-01-19] MEDS: ASPIRIN 81 MG CHEW TABLET PO SCH (08:14)
[2022-01-19] MEDS: FERROUS SULFATE 325MG TAB PO SCH ×2 (08:14→21:03)
[2022-01-19] MEDS: SPIRONOLACTONE 25 MG TAB PO SCH (08:16)
[2022-01-19] MEDS: METOPROLOL TART 50 MG TAB PO SCH ×3 (08:17→21:06)
[2022-01-19] MEDS: FUROSEMIDE 40MG/4ML VIAL (J1940) IV SCH ×2 (08:18→21:03)
[2022-01-19 08:27] LABS: HEMATOCRIT 37.1 % (36.0-47.0); HEMOGLOBIN 12.4 g/dl (12.0-15.5); MEAN CORPUSCULAR HEMOGLOBIN 31.6 pg (27.0-33.0); MEAN CORPUSCULAR HGB CONC 33.4 g/dl (32.0-36.5); MEAN CORPUSCULAR VOLUME 94.6 fl (80.0-96.0); PLATELET COUNT, AUTOMATED 105 10^3/uL (150-450); RED BLOOD COUNT 3.92 10^6/uL (4.00-5.40); WHITE BLOOD COUNT 11.1 10^3/uL (4.0-10.0)
[2022-01-19 12:23] VITALS: BP 103/57
[2022-01-19] MEDS: ACETAMINOPHEN TAB 650MG DOSE (2X325MG) PO PRN (14:19)
[2022-01-19 16:00] VITALS: BP 105/55
[2022-01-19 20:00] VITALS: BP 129/70
[2022-01-19] MEDS ORDERED: LIDOCAINE 5% (LIDODERM) PATCH TD ONE (21:00)
[2022-01-19] MEDS: OMEPRAZOLE 20MG CAP PO SCH (21:03)
[2022-01-19] MEDS: ATORVASTATIN 20 MG TAB PO SCH (21:03)
[2022-01-20] VITALS (7 sets, daily range): BP systolic 98–121; BP diastolic 54–69
[2022-01-20] MEDS: IPRATROPIUM 0.5MG/ALBUTEROL 2.5MG INH SOL UD 3ML (DUONEB) NEB SCH ×4 (01:26→19:56)
[2022-01-20] MEDS: HEPARIN SOD (PORCINE) 5000UNITS/ML 1ML VIAL/SYRINGE SC SCH ×3 (05:14→20:39)
[2022-01-20] MEDS: METOPROLOL TART 50 MG TAB PO SCH ×2 (05:15→13:38)
[2022-01-20 06:03] LABS: HEMATOCRIT 35.6 % (36.0-47.0); HEMOGLOBIN 11.7 g/dl (12.0-15.5); MEAN CORPUSCULAR HEMOGLOBIN 31.4 pg (27.0-33.0); MEAN CORPUSCULAR HGB CONC 32.9 g/dl (32.0-36.5); MEAN CORPUSCULAR VOLUME 95.4 fl (80.0-96.0); PLATELET COUNT, AUTOMATED 105 10^3/uL (150-450); RED BLOOD COUNT 3.73 10^6/uL (4.00-5.40); WHITE BLOOD COUNT 6.6 10^3/uL (4.0-10.0)
[2022-01-20 06:27] LABS: ALBUMIN 2.9 GM/DL (3.2-5.2); ALT/SGPT 32 U/L (12-78); BILIRUBIN,TOTAL 1.5 MG/DL (0.2-1.0); BLOOD UREA NITROGEN 16 MG/DL (7-18); CALCIUM LEVEL 9.9 MG/DL (8.8-10.2); CARBON DIOXIDE LEVEL 32 MEQ/L (21-32); CHLORIDE LEVEL 103 MEQ/L (98-107); CREATININE FOR GFR 0.58 MG/DL (0.55-1.30); GLOMERULAR FILTRATION RATE > 60.0 (>45); GLUCOSE, FASTING 89 MG/DL (70-100); POTASSIUM SERUM 3.6 MEQ/L (3.5-5.1); SODIUM LEVEL 137 MEQ/L (136-145); TOTAL PROTEIN 6.6 GM/DL (6.4-8.2)
[2022-01-20 08:39] LABS: NT-PRO BNP 2260 PG/ML (<125)
[2022-01-20] MEDS: FUROSEMIDE 40MG/4ML VIAL (J1940) IV SCH ×2 (08:57→20:08)
[2022-01-20] MEDS ORDERED: **NOTE PATIENT COMMENT** MISC XX ONE (09:00)
[2022-01-20] MEDS: FERROUS SULFATE 325MG TAB PO SCH ×2 (09:16→20:08)
[2022-01-20] MEDS: ASPIRIN 81 MG CHEW TABLET PO SCH (09:16)
[2022-01-20] MEDS: SPIRONOLACTONE 25 MG TAB PO SCH (09:17)
[2022-01-20] MEDS: ATORVASTATIN 20 MG TAB PO SCH (20:08)
[2022-01-20] MEDS: OMEPRAZOLE 20MG CAP PO SCH (20:08)
[2022-01-20] MEDS: LIDOCAINE 5% (LIDODERM) PATCH TD SCH (20:38)
[2022-01-20] MEDS: NYSTATIN 100,000 UNITS/GM TOPICAL PWD 15 GM TOP SCH (21:25)
[2022-01-21] MEDS: IPRATROPIUM 0.5MG/ALBUTEROL 2.5MG INH SOL UD 3ML (DUONEB) NEB SCH ×4 (02:57→20:12)
[2022-01-21 04:00] VITALS: BP 125/69
[2022-01-21] MEDS: HEPARIN SOD (PORCINE) 5000UNITS/ML 1ML VIAL/SYRINGE SC SCH ×3 (05:12→21:41)
[2022-01-21 06:23] LABS: HEMATOCRIT 35.3 % (36.0-47.0); HEMOGLOBIN 11.5 g/dl (12.0-15.5); MEAN CORPUSCULAR HEMOGLOBIN 30.7 pg (27.0-33.0); MEAN CORPUSCULAR HGB CONC 32.6 g/dl (32.0-36.5); MEAN CORPUSCULAR VOLUME 94.4 fl (80.0-96.0); PLATELET COUNT, AUTOMATED 125 10^3/uL (150-450); RED BLOOD COUNT 3.74 10^6/uL (4.00-5.40); WHITE BLOOD COUNT 5.9 10^3/uL (4.0-10.0)
[2022-01-21 06:58] LABS: ALBUMIN 2.7 GM/DL (3.2-5.2); ALT/SGPT 32 U/L (12-78); BILIRUBIN,TOTAL 0.6 MG/DL (0.2-1.0); BLOOD UREA NITROGEN 17 MG/DL (7-18); CALCIUM LEVEL 10.8 MG/DL (8.8-10.2); CARBON DIOXIDE LEVEL 29 MEQ/L (21-32); CHLORIDE LEVEL 104 MEQ/L (98-107); CREATININE FOR GFR 0.53 MG/DL (0.55-1.30); GLOMERULAR FILTRATION RATE > 60.0 (>45); GLUCOSE, FASTING 106 MG/DL (70-100); POTASSIUM SERUM 3.7 MEQ/L (3.5-5.1); SODIUM LEVEL 138 MEQ/L (136-145); TOTAL PROTEIN 7.2 GM/DL (6.4-8.2)
[2022-01-21 08:25] VITALS: BP 109/51
[2022-01-21] MEDS: ASPIRIN 81 MG CHEW TABLET PO SCH (09:16)
[2022-01-21] MEDS: FERROUS SULFATE 325MG TAB PO SCH ×2 (09:16→21:42)
[2022-01-21] MEDS: SPIRONOLACTONE 25 MG TAB PO SCH (09:17)
[2022-01-21] MEDS: FUROSEMIDE 100MG/10ML VIAL (J1940) IV SCH ×2 (09:18→21:43)
[2022-01-21] MEDS: **NOTE PATIENT COMMENT** MISC XX SCH (09:18)
[2022-01-21] MEDS: NYSTATIN 100,000 UNITS/GM TOPICAL PWD 15 GM TOP SCH ×2 (09:18→21:44)
[2022-01-21 12:12] VITALS: BP 118/75
[2022-01-21] MEDS: ACETAMINOPHEN TAB 650MG DOSE (2X325MG) PO PRN (14:38)
[2022-01-21 16:56] VITALS: BP 123/59
[2022-01-21 17:04] LABS: PTH INTACT 126.8 PG/ML (18.5-88.0)
[2022-01-21 17:17] LABS: TOTAL 25(OH) VITAMIN D 29.7 NG/ML (30.0-100.0)
[2022-01-21 20:00] VITALS: BP 155/70
[2022-01-21] MEDS: ATORVASTATIN 20 MG TAB PO SCH (21:42)
[2022-01-21] MEDS: OMEPRAZOLE 20MG CAP PO SCH (21:43)
[2022-01-21] MEDS: LIDOCAINE 5% (LIDODERM) PATCH TD SCH (21:43)
[2022-01-21] MEDS: METOPROLOL TART 50 MG TAB PO SCH (21:53)
[2022-01-22] VITALS: BP 128/69
[2022-01-22] MEDS: IPRATROPIUM 0.5MG/ALBUTEROL 2.5MG INH SOL UD 3ML (DUONEB) NEB SCH ×2 (02:29→07:07)
[2022-01-22 04:00] VITALS: BP 122/60
[2022-01-22 04:30] LABS: HEMATOCRIT 36.8 % (36.0-47.0); HEMOGLOBIN 12.2 g/dl (12.0-15.5); MEAN CORPUSCULAR HEMOGLOBIN 30.8 pg (27.0-33.0); MEAN CORPUSCULAR HGB CONC 33.2 g/dl (32.0-36.5); MEAN CORPUSCULAR VOLUME 92.9 fl (80.0-96.0); PLATELET COUNT, AUTOMATED 148 10^3/uL (150-450); RED BLOOD COUNT 3.96 10^6/uL (4.00-5.40); WHITE BLOOD COUNT 7.1 10^3/uL (4.0-10.0)
[2022-01-22 04:52] LABS: ALT/SGPT 31 U/L (12-78); BILIRUBIN,TOTAL 0.6 MG/DL (0.2-1.0); BLOOD UREA NITROGEN 16 MG/DL (7-18); CALCIUM LEVEL 10.9 MG/DL (8.8-10.2); CARBON DIOXIDE LEVEL 29 MEQ/L (21-32); CHLORIDE LEVEL 103 MEQ/L (98-107); CREATININE FOR GFR 0.52 MG/DL (0.55-1.30); GLOMERULAR FILTRATION RATE > 60.0 (>45); GLUCOSE, FASTING 98 MG/DL (70-100); MAGNESIUM LEVEL 1.9 MG/DL (1.8-2.4); POTASSIUM SERUM 3.8 MEQ/L (3.5-5.1); SODIUM LEVEL 137 MEQ/L (136-145); TOTAL PROTEIN 7.3 GM/DL (6.4-8.2)
[2022-01-22] MEDS: HEPARIN SOD (PORCINE) 5000UNITS/ML 1ML VIAL/SYRINGE SC SCH (06:21)
[2022-01-22 08:00] VITALS: BP 109/66
[2022-01-22] MEDS: FUROSEMIDE 100MG/10ML VIAL (J1940) IV SCH (08:39)
[2022-01-22] MEDS: NYSTATIN 100,000 UNITS/GM TOPICAL PWD 15 GM TOP SCH (08:39)
[2022-01-22] MEDS: FERROUS SULFATE 325MG TAB PO SCH (08:40)
[2022-01-22] MEDS: ASPIRIN 81 MG CHEW TABLET PO SCH (08:40)
[2022-01-22 08:41] VITALS: BP 109/66
[2022-01-22] MEDS: SPIRONOLACTONE 25 MG TAB PO SCH (08:41)
[2022-01-22] MEDS: METOPROLOL TART 50 MG TAB PO SCH (08:41)
[2022-01-22] MEDS: **NOTE PATIENT COMMENT** MISC XX SCH (08:42)
[2022-01-22] MEDS ORDERED: LOPR1TAB6 PO (11:01)
[2022-01-22] MEDS ORDERED: FURO40TA2 PO (11:01)
[2022-01-22] MEDS ORDERED: SPIR-10 PO (11:01)
[2022-01-22 12:00] VITALS: BP 94/58
== END 2022-01-22 13:40 | disposition home health service (06) | DRG 291 ==
LOC: EDBD 19:37 → M ED 19:37 → M ED INP 23:02 → ENRESERV 01-19 00:08 → M PCU 01-19 00:31
PROVIDERS: ADMIT Internal Medicine; ATTEND Internal Medicine
DX: I11.0 Hypertensive heart disease with heart failure (principal); I50.33 Acute on chronic diastolic (congestive) heart failure; J96.11 Chronic respiratory failure with hypoxia; J44.9 Chronic obstructive pulmonary disease, unspecified; D69.6 Thrombocytopenia, unspecified; I25.10 Atherosclerotic heart disease of native coronary artery without angina pectoris; E78.00 Pure hypercholesterolemia, unspecified; K21.9 Gastro-esophageal reflux disease without esophagitis; Z20.822 Contact with and (suspected) exposure to COVID-19; Z79.82 Long term (current) use of aspirin; Z79.899 Other long term (current) drug therapy; Z88.0 Allergy status to penicillin; I34.2 Nonrheumatic mitral (valve) stenosis; F17.210 Nicotine dependence, cigarettes, uncomplicated; E21.3 Hyperparathyroidism, unspecified; I95.2 Hypotension due to drugs; T44.7X5A Adverse effect of beta-adrenoreceptor antagonists, initial encounter

== ENCOUNTER → 2022-01-28 | Outpatient (CLI) | payer OTHER ==
[~2022-01-28] MED LIST changes: +LOPR1TAB6 PO; +MED REC COMMENT; +SPIR-10 PO
== END ==
LOC: M LABSMTC 09:47
PROVIDERS: ATTEND Internal Medicine Cardiovascular Disease
DX: Z11.52 Encounter for screening for COVID-19 (principal); Z20.822 Contact with and (suspected) exposure to COVID-19

== ENCOUNTER → 2022-03-25 | Outpatient (CLI) | payer OTHER ==
[~2022-03-25] MED LIST changes: +ALBU2.5V10 PO; -ALBU83IN PO
== END ==
LOC: M WHC 14:54
PROVIDERS: ATTEND Internal Medicine Nephrology
DX: N18.31 Chronic kidney disease, stage 3a (principal); E21.0 Primary hyperparathyroidism

== ENCOUNTER → 2022-05-03 | Outpatient (CLI) | payer OTHER | LOC: M PLALAB 12:36 | PROVIDERS: ATTEND Nurse Practitioner Family | DX: J98.4 Other disorders of lung (principal) ==

== ENCOUNTER → 2022-06-18 | Outpatient (CLI) | payer OTHER | LOC: M PLAIMG 08:52 | PROVIDERS: ATTEND Internal Medicine Pulmonary Disease | DX: R91.8 Other nonspecific abnormal finding of lung field (principal); R91.1 Solitary pulmonary nodule ==

== ENCOUNTER → 2022-07-03 | Outpatient (CLI) | payer OTHER | LOC: M WHC 09:08 | PROVIDERS: ATTEND Student in an Organized Health Care Education/Training Program | DX: Z12.31 Encounter for screening mammogram for malignant neoplasm of breast (principal) ==

== ENCOUNTER → 2022-07-29 | Outpatient (CLI) | payer OTHER ==
[~2022-07-29] MED LIST changes: +CLOP75TA99 PO; -PLAV1TAB2 PO
== END ==
LOC: M RAD 08:34
PROVIDERS: ATTEND Internal Medicine Nephrology
DX: E21.0 Primary hyperparathyroidism (principal)
CPT/HCPCS: 78070; 78803; A9500

== ENCOUNTER → 2022-09-15 | Outpatient (CLI) | payer OTHER ==
[~2022-09-15] MED LIST changes: +BUME2TAB3 PO; +CINA30TA5 PO; +ESOM20CA25; +JARD1TAB PO; +METO1TAB7
== END ==
LOC: M LABSMTC 10:03
PROVIDERS: ATTEND Anesthesiology
DX: Z01.812 Encounter for preprocedural laboratory examination (principal); Z11.52 Encounter for screening for COVID-19

== ENCOUNTER 2022-09-19 11:52 | Day surgery (SDC) | payer OTHER ==
[~2022-09-19] VITALS: Ht 157.5 cm; Wt 83.0 kg
[~2022-09-19 11:52] MED LIST changes: +NS 1,000 ML IV ONE
[2022-09-19] MEDS ORDERED: propofoL 200 MG/20 ML VIAL As Ordered ONE ×2 (13:36→13:46)
[2022-09-19] MEDS ORDERED: LIDOCAINE 2% 100MG/5ML SDV (FOR ANES.) As Ordered ONE (13:36)
[2022-09-19] MEDS ORDERED: IPRATROPIUM 0.5MG/ALBUTEROL 2.5MG INH SOL UD 3ML (DUONEB) NEB ONE (14:40)
[2022-09-19] MEDS ORDERED: ALBUTEROL SULFATE 2.5MG/0.5ML INH NEB SOLN As Ordered ONE (14:49)
[2022-09-19 15:00] VITALS: BP 104/58
== END 2022-09-19 15:26 | disposition home or self-care (01) ==
LOC: M OPP 11:52
PROVIDERS: ATTEND Surgery
DX: Z12.11 Encounter for screening for malignant neoplasm of colon (principal); Z86.010 Personal history of colon polyps; D12.6 Benign neoplasm of colon, unspecified; D12.2 Benign neoplasm of ascending colon; K44.9 Diaphragmatic hernia without obstruction or gangrene; K29.60 Other gastritis without bleeding; K31.89 Other diseases of stomach and duodenum; F17.200 Nicotine dependence, unspecified, uncomplicated; Z79.02 Long term (current) use of antithrombotics/antiplatelets; Z79.51 Long term (current) use of inhaled steroids; Z79.82 Long term (current) use of aspirin; Z79.899 Other long term (current) drug therapy; Z88.0 Allergy status to penicillin; I50.9 Heart failure, unspecified; G47.30 Sleep apnea, unspecified; Z99.89 Dependence on other enabling machines and devices; I10 Essential (primary) hypertension; E78.00 Pure hypercholesterolemia, unspecified

== ENCOUNTER 2022-10-09 14:34 | Observation (INO) | payer OTHER ==
[~2022-10-09] VITALS: Ht 162.6 cm; Wt 88.0 kg
[~2022-10-09 14:34] MED LIST changes: -NS 1,000 ML IV ONE
[2022-10-09] MEDS ORDERED: NITROGLYCERIN 0.4MG SUBL TABLET SL PRN (15:20)
[2022-10-09 16:23] LABS: BASO # 0.1 10^3/uL (0.0-0.2); BASO % 0.8 % (0.0-1.0); EOS # 0.2 10^3/uL (0.0-0.5); EOS % 2.8 % (0.0-3.0); HEMATOCRIT 44.2 % (36.0-47.0); HEMOGLOBIN 14.2 g/dl (12.0-15.5); LYMPH # 1.7 10^3/uL (1.5-5.0); LYMPH % 21.3 % (24.0-44.0); MEAN CORPUSCULAR HEMOGLOBIN 31.1 pg (27.0-33.0); MEAN CORPUSCULAR HGB CONC 32.1 g/dl (32.0-36.5); MEAN CORPUSCULAR VOLUME 96.9 fl (80.0-96.0); MONO # 0.7 10^3/uL (0.0-0.8); MONO % 8.3 % (2.0-8.0); NEUTROPHILS # 5.2 10^3/uL (1.5-8.5); NEUTROPHILS % 66.4 % (36.0-66.0); PLATELET COUNT, AUTOMATED 137 10^3/uL (150-450); RED BLOOD COUNT 4.56 10^6/uL (4.00-5.40); WHITE BLOOD COUNT 7.8 10^3/uL (4.0-10.0)
[2022-10-09 16:34] LABS: BILIRUBIN,DIRECT 0.3 MG/DL (<0.4)
[2022-10-09 16:35] LABS: ALBUMIN 3.4 G/DL (3.2-5.2); ALKALINE PHOSPHATASE 109 U/L (46-116); ALT/SGPT 16 U/L (7.0-40); AST/SGOT 16 U/L (<34); BILIRUBIN,TOTAL 0.9 MG/DL (0.3-1.2); BLOOD UREA NITROGEN 17 MG/DL (9-23); CALCIUM LEVEL 9.4 MG/DL (8.3-10.6); CARBON DIOXIDE LEVEL 30 MMOL/L (20-31); CHLORIDE LEVEL 104 MMOL/L (98-107); CK-MB VALUE MASS < 1.0 NG/ML (<3.6); CREATININE FOR GFR 0.83 MG/DL (0.55-1.30); GLOMERULAR FILTRATION RATE > 60.0 (>45); GLUCOSE, FASTING 92 MG/DL (74-106); POTASSIUM SERUM 3.7 MMOL/L (3.5-5.1); SODIUM LEVEL 141 MMOL/L (136-145); TOTAL PROTEIN 7.1 G/DL (5.7-8.2)
[2022-10-09 16:39] LABS: THYROID STIMULATING HORMONE 0.441 uIU/ML (0.55-4.78); THYROXINE (T4) 10.6 UG/DL (4.5-10.9)
[2022-10-09 16:40] LABS: CPK CREATINE PHOSPHOKINASE 57 U/L (34-145); MB/CK RELATIVE INDEX 1.75 (< OR =4)
[2022-10-09 16:41] LABS: RSV AMPLIFICATION NEGATIVE (NEGATIVE)
[2022-10-09] MEDS ORDERED: FUROSEMIDE 40MG/4ML VIAL IV ONE ×2 (17:10→23:00)
[2022-10-09 17:27] LABS: CK-MB VALUE MASS < 1.0 NG/ML (<3.6)
[2022-10-09 17:32] LABS: CPK CREATINE PHOSPHOKINASE 61 U/L (34-145); MB/CK RELATIVE INDEX 1.63 (< OR =4)
[2022-10-09] MEDS ORDERED: OMEP-173 PO (19:21)
[2022-10-09] MEDS ORDERED: TOPR100T PO (19:25)
[2022-10-09] MEDS ORDERED: HOME MED LIST COMPLETE! XX SCH (19:30)
[2022-10-09] MEDS: ASPIRIN 81MG CHEW TABLET PO SCH (21:50)
[2022-10-09] MEDS: POTASSIUM CHLORIDE 10MEQ SR TABLET PO SCH (21:50)
[2022-10-09] MEDS: OMEPRAZOLE 20MG CAP PO SCH (21:50)
[2022-10-09] MEDS: ATORVASTATIN 20 MG TAB PO SCH (21:50)
[2022-10-09] MEDS: FERROUS SULFATE 325MG TAB PO SCH (21:52)
[2022-10-09] MEDS: METOPROLOL SUCC (TopROL XL) 100MG *XL* TAB PO SCH (21:52)
[2022-10-09] MEDS: IPRATROPIUM 0.5MG/ALBUTEROL 2.5MG INH SOL UD 3ML (DUONEB) NEB PRN (22:46)
[2022-10-10] VITALS (28 sets, daily range): BP systolic 92–116; BP diastolic 48–60; O2SAT 86–97
[2022-10-10 06:09] LABS: BLOOD UREA NITROGEN 12 MG/DL (9-23); CALCIUM LEVEL 9.8 MG/DL (8.3-10.6); CARBON DIOXIDE LEVEL 32 MMOL/L (20-31); CHLORIDE LEVEL 105 MMOL/L (98-107); CREATININE FOR GFR 0.72 MG/DL (0.55-1.30); GLOMERULAR FILTRATION RATE > 60.0 (>45); GLUCOSE, FASTING 84 MG/DL (74-106); POTASSIUM SERUM 3.6 MMOL/L (3.5-5.1); SODIUM LEVEL 141 MMOL/L (136-145)
[2022-10-10] MEDS: TORSEMIDE (DEMADEX) 50 MG PER 1/2 TAB PO SCH ×2 (09:00→15:37)
[2022-10-10] MEDS: ENOXAPARIN 40MG/0.4ML SYRINGE (J1650 PER 10MG) SC SCH (09:10)
[2022-10-10] MEDS: CINACALCET 30 MG TAB (SENSIPAR) PO SCH (09:11)
[2022-10-10] MEDS: POTASSIUM CHLORIDE 10MEQ SR TABLET PO SCH ×2 (09:11→20:48)
[2022-10-10] MEDS ORDERED: FLUBLOK(EGG FREE)(QUAD)INFLUENZA VACC 0.5ML SYRINGE 18YRS & OLDER IM.IMMUN ONE (12:00)
[2022-10-10] MEDS: IPRATROPIUM 0.5MG/ALBUTEROL 2.5MG INH SOL UD 3ML (DUONEB) NEB PRN (12:53)
[2022-10-10] MEDS ORDERED: TORSEMIDE (DEMADEX) 50 MG PER 1/2 TAB PO STA (15:21)
[2022-10-10] MEDS: ATORVASTATIN 20 MG TAB PO SCH (20:48)
[2022-10-10] MEDS: METOPROLOL SUCC (TopROL XL) 100MG *XL* TAB PO SCH ×2 (20:49→20:51)
[2022-10-10] MEDS: OMEPRAZOLE 20MG CAP PO SCH (20:50)
[2022-10-10] MEDS: FERROUS SULFATE 325MG TAB PO SCH (20:50)
[2022-10-10] MEDS: ASPIRIN 81MG CHEW TABLET PO SCH (20:50)
[2022-10-10] MEDS ORDERED: TORSEMIDE (DEMADEX) 50 MG PER 1/2 TAB PO ONE (23:00)
[2022-10-11 00:07] VITALS: BP 107/53
[2022-10-11] MEDS ORDERED: LACTULOSE 20GM/30ML SYRUP UDC PO PRN (02:20)
[2022-10-11 05:13] VITALS: BP 118/54
[2022-10-11 06:08] LABS: BLOOD UREA NITROGEN 16 MG/DL (9-23); CALCIUM LEVEL 9.8 MG/DL (8.3-10.6); CARBON DIOXIDE LEVEL 29 MMOL/L (20-31); CHLORIDE LEVEL 103 MMOL/L (98-107); CREATININE FOR GFR 0.63 MG/DL (0.55-1.30); GLOMERULAR FILTRATION RATE > 60.0 (>45); GLUCOSE, FASTING 93 MG/DL (74-106); POTASSIUM SERUM 3.8 MMOL/L (3.5-5.1); SODIUM LEVEL 139 MMOL/L (136-145)
[2022-10-11 07:48] VITALS: BP 106/52
[2022-10-11] MEDS ORDERED: BUMETANIDE 1 MG TAB PO SCH (09:00)
[2022-10-11] MEDS: ENOXAPARIN 40MG/0.4ML SYRINGE (J1650 PER 10MG) SC SCH (09:09)
[2022-10-11] MEDS: CINACALCET 30 MG TAB (SENSIPAR) PO SCH (09:10)
[2022-10-11] MEDS: POTASSIUM CHLORIDE 10MEQ SR TABLET PO SCH (09:10)
[2022-10-11 12:00] VITALS: BP 102/55
[2022-10-11] MEDS ORDERED: METO25TA PO (12:25)
[2022-10-11] MEDS ORDERED: BUME1TAB3 PO (12:25)
== END 2022-10-11 15:05 | disposition home or self-care (01) ==
LOC: M ED 15:36 → M ED INP 18:23 → M PCU 10-10 02:53
PROVIDERS: ADMIT Internal Medicine; ATTEND Internal Medicine
DX: I50.32 Chronic diastolic (congestive) heart failure (principal); R06.02 Shortness of breath; R07.9 Chest pain, unspecified; I25.2 Old myocardial infarction; J44.9 Chronic obstructive pulmonary disease, unspecified; G47.33 Obstructive sleep apnea (adult) (pediatric); K21.9 Gastro-esophageal reflux disease without esophagitis; I11.0 Hypertensive heart disease with heart failure; D53.9 Nutritional anemia, unspecified; R20.0 Anesthesia of skin; R32 Unspecified urinary incontinence; M19.90 Unspecified osteoarthritis, unspecified site; F17.210 Nicotine dependence, cigarettes, uncomplicated; Z95.5 Presence of coronary angioplasty implant and graft; Z79.899 Other long term (current) drug therapy; Z79.82 Long term (current) use of aspirin; Z79.84 Long term (current) use of oral hypoglycemic drugs; Z88.0 Allergy status to penicillin; Z23 Encounter for immunization
CPT/HCPCS: 36415; 71045; 80048; 80076; 82550; 82553; 83880; 84436; 84443; 84484; 85025; 87040; 87631; 90471; 90682; 93005; 93041; 94640; 94660; 94760; 96372; 96374; 96376; 99285; J1650; J1940

== ENCOUNTER → 2022-10-13 | Outpatient (CLI) | payer OTHER ==
[~2022-10-13] MED LIST changes: +BUME1TAB3 PO; +METO25TA PO; +TOPR100T PO
== END ==
LOC: M LABSMTC 10:30
PROVIDERS: ATTEND Anesthesiology
DX: Z01.818 Encounter for other preprocedural examination (principal)

== ENCOUNTER 2022-10-16 06:20 | Day surgery (SDC) | payer OTHER ==
[~2022-10-16] VITALS: Ht 162.6 cm; Wt 83.4 kg
[2022-10-16] MEDS ORDERED: LR 1,000 ML IV SCH ×2 (06:55→10:05)
[2022-10-16] MEDS ORDERED: propofoL 200 MG/20 ML VIAL As Ordered ONE ×2 (07:07→07:45)
[2022-10-16] MEDS ORDERED: LIDOCAINE 2% 100MG/5ML SDV (FOR ANES.) As Ordered ONE (07:07)
[2022-10-16] MEDS ORDERED: CETACAINE SPRAY 5GM As Ordered ONE (07:08)
[2022-10-16] MEDS ORDERED: LIDOCAINE VISCOUS 2% SOLN 15ML UDC As Ordered ONE (07:08)
[2022-10-16] MEDS ORDERED: MIDAZOLAM INJ 2MG/2ML VIAL As Ordered ONE (07:18)
[2022-10-16] MEDS ORDERED: ONDANSETRON 4MG 2ML VIAL As Ordered ONE (07:45)
[2022-10-16] MEDS ORDERED: ACETAMINOPHEN 1000MG 100ML IV BAG As Ordered ONE (07:45)
[2022-10-16 09:00] VITALS: BP 105/56
[2022-10-16] MEDS ORDERED: ALBUTEROL SULFATE 2.5MG/0.5ML INH NEB SOLN As Ordered ONE (10:03)
[2022-10-16] MEDS ORDERED: ALBUTEROL SULFATE 2.5MG/0.5ML INH NEB SOLN INH ONE (10:05)
[2022-10-16] MEDS ORDERED: oxyCODONE 5MG TAB PO PRN (10:05)
[2022-10-16] MEDS ORDERED: HYDROMORPHONE HCL 0.5 MG/ 0.5 ML SYRINGE IV PRN (10:05)
[2022-10-16] MEDS ORDERED: ONDANSETRON 4MG 2ML VIAL IV PRN (10:05)
[2022-10-16] MEDS ORDERED: fentaNYL 100 MCG/2 ML INJECTION IV PRN (10:05)
== END 2022-10-16 11:20 | disposition home or self-care (01) ==
LOC: M SDC 06:20
PROVIDERS: ATTEND Internal Medicine Cardiovascular Disease
DX: I11.0 Hypertensive heart disease with heart failure (principal); I34.2 Nonrheumatic mitral (valve) stenosis; I34.0 Nonrheumatic mitral (valve) insufficiency; I51.3 Intracardiac thrombosis, not elsewhere classified; D17.4 Benign lipomatous neoplasm of intrathoracic organs; I70.0 Atherosclerosis of aorta; R09.02 Hypoxemia; Z99.81 Dependence on supplemental oxygen; Z95.5 Presence of coronary angioplasty implant and graft; I25.10 Atherosclerotic heart disease of native coronary artery without angina pectoris; I25.2 Old myocardial infarction; I50.9 Heart failure, unspecified; K21.9 Gastro-esophageal reflux disease without esophagitis; E78.00 Pure hypercholesterolemia, unspecified; I73.9 Peripheral vascular disease, unspecified; R01.1 Cardiac murmur, unspecified; F17.210 Nicotine dependence, cigarettes, uncomplicated; J44.9 Chronic obstructive pulmonary disease, unspecified; M19.90 Unspecified osteoarthritis, unspecified site; G47.33 Obstructive sleep apnea (adult) (pediatric); Z88.0 Allergy status to penicillin; Z79.899 Other long term (current) drug therapy; Z79.82 Long term (current) use of aspirin
CPT/HCPCS: 93312; 93320; 93325; J0131; J2250; J2405

== ENCOUNTER → 2022-11-11 | Outpatient (CLI) | payer OTHER | LOC: M PLAIMG 11:23 | PROVIDERS: ATTEND Internal Medicine Pulmonary Disease | DX: R91.1 Solitary pulmonary nodule (principal) ==

== ENCOUNTER → 2023-01-23 | Outpatient (CLI) | payer OTHER | LOC: M RAD 15:53 | PROVIDERS: ATTEND Physician Assistant | DX: I73.9 Peripheral vascular disease, unspecified (principal) ==

== ENCOUNTER → 2023-02-03 | Outpatient (REF) | payer OTHER ==
[2023-02-03 15:40] LABS: INR 1.69; PROTHROMBIN TIME 20.2 SECONDS (12.5-14.5)
== END ==
LOC: M LAB REF 13:49
PROVIDERS: ATTEND Internal Medicine Cardiovascular Disease
DX: Z79.01 Long term (current) use of anticoagulants (principal)

== ENCOUNTER → 2023-02-10 | Outpatient (REF) | payer OTHER ==
[2023-02-10 15:05] LABS: HEMATOCRIT 38.8 % (36.0-47.0); MEAN CORPUSCULAR HEMOGLOBIN 29.1 pg (27.0-33.0); MEAN CORPUSCULAR HGB CONC 30.9 g/dl (32.0-36.5); MEAN CORPUSCULAR VOLUME 93.9 fl (80.0-96.0); PLATELET COUNT, AUTOMATED 130 10^3/uL (150-450); RED BLOOD COUNT 4.13 10^6/uL (4.00-5.40)
[2023-02-10 15:26] LABS: BLOOD UREA NITROGEN 15 MG/DL (9-23); CALCIUM LEVEL 8.5 MG/DL (8.3-10.6); CARBON DIOXIDE LEVEL 28 MMOL/L (20-31); CHLORIDE LEVEL 103 MMOL/L (98-107); CREATININE FOR GFR 0.63 MG/DL (0.55-1.30); GLOMERULAR FILTRATION RATE > 60.0 (>45); GLUCOSE, FASTING 84 MG/DL (74-106); IRON (FE) 55 UG/DL (50-170); PERCENT SATURATION 13.5 % (13.2-45.0); POTASSIUM SERUM 3.8 MMOL/L (3.5-5.1); SODIUM LEVEL 138 MMOL/L (136-145); TOTAL IRON BINDING CAPACITY 408 UG/DL (250-425)
== END ==
LOC: M LAB REF 13:21
PROVIDERS: ATTEND Nurse Practitioner Family
DX: D64.9 Anemia, unspecified (principal); I48.91 Unspecified atrial fibrillation; I25.10 Atherosclerotic heart disease of native coronary artery without angina pectoris

== ENCOUNTER → 2023-02-10 | Outpatient (REF) | payer OTHER ==
[2023-02-10 15:15] LABS: INR 1.77; PROTHROMBIN TIME 20.9 SECONDS (12.5-14.5)
== END ==
LOC: M LAB REF 13:23
PROVIDERS: ATTEND Internal Medicine Cardiovascular Disease
DX: I48.91 Unspecified atrial fibrillation (principal)

== ENCOUNTER → 2023-03-26 | Outpatient (CLI) | payer OTHER ==
[~2023-03-26] MED LIST changes: +BARIUM SULFATE 700 MG TABLET (E-Z-DISK) As Ordered ONE; +E-Z-PAQUE 96% w/w SUSP 176GM BTL As Ordered ONE; -FLUT11IN INH; +FLUT12AE6 INH; -K-TA10TA2 PO; +POTA-165 PO; +VARIBAR NECTAR 40% w/v 240ML SUSP BTL As Ordered ONE; +VARIBAR PUDDING 40% w/v 230ML TUBE As Ordered ONE
== END ==
LOC: M RAD 12:31
PROVIDERS: ATTEND Student in an Organized Health Care Education/Training Program
DX: R13.10 Dysphagia, unspecified (principal)

== ENCOUNTER → 2023-07-03 | Outpatient (CLI) | payer OTHER ==
[~2023-07-03] MED LIST changes: -BARIUM SULFATE 700 MG TABLET (E-Z-DISK) As Ordered ONE; -E-Z-PAQUE 96% w/w SUSP 176GM BTL As Ordered ONE; +EZET10TA58 PO; -VARIBAR NECTAR 40% w/v 240ML SUSP BTL As Ordered ONE; -VARIBAR PUDDING 40% w/v 230ML TUBE As Ordered ONE; -ZETI10TA16 PO
[2023-07-03 17:37] LABS: HEMATOCRIT 43.7 % (36.0-47.0); HEMOGLOBIN 13.7 g/dl (12.0-15.5); MEAN CORPUSCULAR HGB CONC 31.4 g/dl (32.0-36.5); MEAN CORPUSCULAR VOLUME 95.8 fl (80.0-96.0); PLATELET COUNT, AUTOMATED 142 10^3/uL (150-450); RED BLOOD COUNT 4.56 10^6/uL (4.00-5.40); WHITE BLOOD COUNT 9.4 10^3/uL (4.0-10.0)
[2023-07-03 17:48] LABS: INR 2.15; PROTHROMBIN TIME 23.5 SECONDS (12.5-14.5)
[2023-07-03 17:49] LABS: PARTIAL THROMBOPLASTIN TIME 42.2 SECONDS (24.8-34.2)
[2023-07-03 17:50] LABS: BLOOD UREA NITROGEN 15 MG/DL (9-23); CALCIUM LEVEL 9.7 MG/DL (8.3-10.6); CARBON DIOXIDE LEVEL 31 MMOL/L (20-31); CHLORIDE LEVEL 103 MMOL/L (98-107); CREATININE FOR GFR 0.82 MG/DL (0.55-1.30); GLOMERULAR FILTRATION RATE > 60.0 (>45); GLUCOSE, FASTING 124 MG/DL (74-106); POTASSIUM SERUM 3.9 MMOL/L (3.5-5.1); SODIUM LEVEL 141 MMOL/L (136-145)
== END ==
LOC: M PLALAB 13:23
PROVIDERS: ATTEND Physician Assistant
DX: Z01.818 Encounter for other preprocedural examination (principal); I73.9 Peripheral vascular disease, unspecified; D69.8 Other specified hemorrhagic conditions

== ENCOUNTER → 2023-09-05 | Outpatient (CLI) | payer OTHER | LOC: M PLAIMG 11:39 | PROVIDERS: ATTEND Internal Medicine Pulmonary Disease | DX: J44.9 Chronic obstructive pulmonary disease, unspecified (principal); G47.33 Obstructive sleep apnea (adult) (pediatric); J96.11 Chronic respiratory failure with hypoxia; R91.8 Other nonspecific abnormal finding of lung field; Z99.81 Dependence on supplemental oxygen; Z79.01 Long term (current) use of anticoagulants; Z87.891 Personal history of nicotine dependence; Z88.0 Allergy status to penicillin | CPT/HCPCS: 71046; 94010; G0463 ==

== ENCOUNTER → 2023-09-24 | Outpatient (CLI) | payer OTHER | LOC: M RAD 08:43 | PROVIDERS: ATTEND Internal Medicine | DX: I50.30 Unspecified diastolic (congestive) heart failure (principal); R14.0 Abdominal distension (gaseous); K80.20 Calculus of gallbladder without cholecystitis without obstruction ==

== ENCOUNTER → 2023-11-04 | Outpatient (CLI) | payer OTHER ==
[2023-11-04 15:55] LABS: BASO # 0.1 10^3/uL (0.0-0.2); BASO % 0.8 % (0.0-1.0); EOS # 0.3 10^3/uL (0.0-0.5); EOS % 2.9 % (0.0-3.0); HEMATOCRIT 45.5 % (36.0-47.0); LYMPH # 1.9 10^3/uL (1.5-5.0); LYMPH % 19.3 % (24.0-44.0); MEAN CORPUSCULAR HEMOGLOBIN 29.9 pg (27.0-33.0); MEAN CORPUSCULAR HGB CONC 30.8 g/dl (32.0-36.5); MEAN CORPUSCULAR VOLUME 97.2 fl (80.0-96.0); MONO % 9.9 % (2.0-8.0); NEUTROPHILS # 6.6 10^3/uL (1.5-8.5); NEUTROPHILS % 66.8 % (36.0-66.0); PLATELET COUNT, AUTOMATED 158 10^3/uL (150-450); RED BLOOD COUNT 4.68 10^6/uL (4.00-5.40); WHITE BLOOD COUNT 9.8 10^3/uL (4.0-10.0)
[2023-11-04 16:34] LABS: BLOOD UREA NITROGEN 20 MG/DL (9-23); CALCIUM LEVEL 9.8 MG/DL (8.3-10.6); CARBON DIOXIDE LEVEL 32 MMOL/L (20-31); CHLORIDE LEVEL 102 MMOL/L (98-107); CREATININE FOR GFR 0.91 MG/DL (0.55-1.30); GLOMERULAR FILTRATION RATE > 60.0 (>45); GLUCOSE, FASTING 125 MG/DL (74-106); SODIUM LEVEL 139 MMOL/L (136-145)
== END ==
LOC: M PLALAB 12:05
PROVIDERS: ATTEND Nurse Practitioner Family
DX: I50.30 Unspecified diastolic (congestive) heart failure (principal); R06.09 Other forms of dyspnea

== ENCOUNTER 2023-12-25 19:10 | Emergency (ER) | payer OTHER ==
[~2023-12-25] VITALS: Ht 160 cm; Wt 111.4 kg
[2023-12-25 19:57] LABS: BASO # 0.1 10^3/uL (0.0-0.2); BASO % 0.5 % (0.0-1.0); EOS # 0.2 10^3/uL (0.0-0.5); EOS % 1.9 % (0.0-3.0); HEMATOCRIT 43.3 % (36.0-47.0); HEMOGLOBIN 13.8 g/dl (12.0-15.5); LYMPH # 2.3 10^3/uL (1.5-5.0); LYMPH % 18.4 % (24.0-44.0); MEAN CORPUSCULAR HEMOGLOBIN 29.9 pg (27.0-33.0); MEAN CORPUSCULAR HGB CONC 31.9 g/dl (32.0-36.5); MEAN CORPUSCULAR VOLUME 93.9 fl (80.0-96.0); MONO # 0.9 10^3/uL (0.0-0.8); MONO % 6.8 % (2.0-8.0); NEUTROPHILS # 9.1 10^3/uL (1.5-8.5); NEUTROPHILS % 71.8 % (36.0-66.0); PLATELET COUNT, AUTOMATED 162 10^3/uL (150-450); RED BLOOD COUNT 4.61 10^6/uL (4.00-5.40); WHITE BLOOD COUNT 12.6 10^3/uL (4.0-10.0)
[2023-12-25 20:25] LABS: CK-MB VALUE MASS < 1.0 NG/ML (<3.6); CPK CREATINE PHOSPHOKINASE 75 U/L (34-145); MB/CK RELATIVE INDEX 1.33 (< OR =4)
[2023-12-25 20:26] LABS: ALBUMIN 3.2 G/DL (3.2-5.2); ALKALINE PHOSPHATASE 82 U/L (46-116); ALT/SGPT 32 U/L (7.0-40); AST/SGOT 23 U/L (<34); BILIRUBIN,DIRECT 0.2 MG/DL (<0.4); BILIRUBIN,TOTAL 0.6 MG/DL (0.3-1.2); BLOOD UREA NITROGEN 23 MG/DL (9-23); CALCIUM LEVEL 7.9 MG/DL (8.3-10.6); CARBON DIOXIDE LEVEL 29 MMOL/L (20-31); CHLORIDE LEVEL 99 MMOL/L (98-107); CREATININE FOR GFR 0.88 MG/DL (0.55-1.30); GLOMERULAR FILTRATION RATE > 60.0 (>45); GLUCOSE, FASTING 133 MG/DL (74-106); POTASSIUM SERUM 4.2 MMOL/L (3.5-5.1); SODIUM LEVEL 136 MMOL/L (136-145); TOTAL PROTEIN 7.3 G/DL (5.7-8.2)
[2023-12-25 20:31] LABS: RSV AMPLIFICATION NEGATIVE (NEGATIVE)
[2023-12-25 20:33] LABS: PROCALCITONIN 0.08 ng/ml
[2023-12-25] MEDS ORDERED: ISOVUE-370 76% 100ML VIAL As Ordered ONE (21:01)
[2023-12-25 21:14] LABS: INR 2.14; PROTHROMBIN TIME 23.2 SECONDS (12.5-14.5)
[2023-12-25] MEDS: LevoFLOXacin IV 750 MG in IV 1 EA IV ONE (22:04)
[2023-12-25 22:09] LABS: ABG BASE EXCESS 2.7 (-2.0-2.0); ABG HCO3 27.6 MMOL/L (22.0-26.0); ABG O2 SATURATION 95.4 % (95.0-99.0); ABG PARTIAL PRESSURE CO2 43.6 mmHg (35.0-45.0); ABG PARTIAL PRESSURE O2 81.9 mmHg (75.0-100.0); ABG STANDARD HCO3 26.8 MMOL/L. (22.0-26.0); ABG TOTAL CO2 28.9 MMOL/L (23.0-31.0); ABG pH (ARTERIAL) 7.419 UNITS (7.350-7.450)
[2023-12-25] MEDS ORDERED: LEVO750T14 PO (22:21)
[2023-12-25 22:59] VITALS: BP 124/59; TEMP 98; O2SAT 96
== END 2023-12-25 23:09 | disposition home or self-care (01) ==
LOC: M ED 19:10
DX: J18.1 Lobar pneumonia, unspecified organism (principal); J44.9 Chronic obstructive pulmonary disease, unspecified; Z86.79 Personal history of other diseases of the circulatory system; Z87.891 Personal history of nicotine dependence; Z88.0 Allergy status to penicillin; Z79.82 Long term (current) use of aspirin; Z79.02 Long term (current) use of antithrombotics/antiplatelets; Z79.83 Long term (current) use of bisphosphonates; Z79.899 Other long term (current) drug therapy
CPT/HCPCS: 36600; 71045; 71275; 80048; 80076; 82550; 82553; 82803; 83880; 84145; 84484; 85025; 85610; 86140; 87631; 93005; 96365; 99284; J1956; Q9967

== ENCOUNTER → 2024-03-25 | Outpatient (CLI) | payer OTHER ==
[~2024-03-25] MED LIST changes: +LEVO750T14 PO
== END ==
LOC: M RAD 11:10
PROVIDERS: ATTEND Internal Medicine Pulmonary Disease
DX: R91.8 Other nonspecific abnormal finding of lung field (principal); J47.9 Bronchiectasis, uncomplicated; J43.2 Centrilobular emphysema; J81.0 Acute pulmonary edema; R59.0 Localized enlarged lymph nodes

== ENCOUNTER → 2024-07-09 | Outpatient (CLI) | payer OTHER ==
[~2024-07-09] MED LIST changes: +BUME2TAB3; +CINA60TA3; +D-101000 PO; +E-Z-GAS II EFFERVESCENT PACKET (SODIUM BICARB./CITRIC ACID/SIMETHICONE) As Ordered ONE; +E-Z-HD 98% w/w 340GM SUSP BTL As Ordered ONE; +E-Z-PAQUE 96% w/w SUSP 176GM BTL As Ordered ONE; +FAMO1TAB11; +GABA-1171; +METO1TAB87; +POTA-136; +POTA1TAB23; +SEMA1PEN4; +SPIR-10; +WARF4TAB52
== END ==
LOC: M RAD 09:40
PROVIDERS: ATTEND Internal Medicine
DX: R13.10 Dysphagia, unspecified (principal); K44.9 Diaphragmatic hernia without obstruction or gangrene; K21.9 Gastro-esophageal reflux disease without esophagitis

== ENCOUNTER → 2024-08-05 | Outpatient (CLI) | payer OTHER ==
[~2024-08-05] MED LIST changes: -BUME2TAB3; -CINA60TA3; +CINA60TA3 PO; -E-Z-GAS II EFFERVESCENT PACKET (SODIUM BICARB./CITRIC ACID/SIMETHICONE) As Ordered ONE; -E-Z-HD 98% w/w 340GM SUSP BTL As Ordered ONE; -E-Z-PAQUE 96% w/w SUSP 176GM BTL As Ordered ONE; -FAMO1TAB11; +FAMO1TAB11 PO; -GABA-1171; +GABA-1171 PO; -LEVO750T14 PO; +LEVO75TAB PO; -METO1TAB87; +METO1TAB87 PO; -POTA1TAB23; +POTA1TAB23 PO; -SEMA1PEN4; +SEMA1PEN4 SC; -SPIR-10; +TREL1AER IN; -WARF4TAB52; +WARF4TAB52 PO
== END ==
LOC: M WHC 15:50
PROVIDERS: ATTEND Internal Medicine
DX: Z12.31 Encounter for screening mammogram for malignant neoplasm of breast (principal)

== ENCOUNTER 2024-08-19 07:21 | Day surgery (SDC) | payer OTHER ==
[~2024-08-19] VITALS: Ht 160 cm; Wt 114.5 kg
[2024-08-19] MEDS ORDERED: propofoL 200 MG/20 ML VIAL As Ordered ONE (07:57)
[2024-08-19] MEDS ORDERED: LIDOCAINE 2% 100MG/5ML SDV (FOR ANES.) As Ordered ONE (07:57)
[2024-08-19] MEDS ORDERED: dexmedeTOMIDine (4MCG/ML)200MCG/50ML BTL (PRECEDEX) As Ordered ONE (07:58)
[2024-08-19] MEDS ORDERED: fentaNYL 100 MCG/2 ML INJECTION As Ordered ONE (08:49)
[2024-08-19 10:23] VITALS: TEMP 98.6
[2024-08-19 10:50] VITALS: BP 127/66; O2SAT 88
[2024-08-20] MEDS ORDERED: SEMA1.7P INJ (16:26)
== END 2024-08-19 11:00 | disposition home or self-care (01) ==
LOC: M OPP 07:21
PROVIDERS: ATTEND Surgery
DX: K63.5 Polyp of colon (principal); Z86.0100 Personal history of colon polyps, unspecified; K57.30 Diverticulosis of large intestine without perforation or abscess without bleeding; K44.9 Diaphragmatic hernia without obstruction or gangrene; R13.10 Dysphagia, unspecified; I48.91 Unspecified atrial fibrillation; I25.10 Atherosclerotic heart disease of native coronary artery without angina pectoris; I25.2 Old myocardial infarction; I10 Essential (primary) hypertension; E78.5 Hyperlipidemia, unspecified; R60.0 Localized edema; K74.60 Unspecified cirrhosis of liver; R12 Heartburn; M19.90 Unspecified osteoarthritis, unspecified site; J45.909 Unspecified asthma, uncomplicated; J44.9 Chronic obstructive pulmonary disease, unspecified; G47.33 Obstructive sleep apnea (adult) (pediatric); Z99.89 Dependence on other enabling machines and devices; Z87.891 Personal history of nicotine dependence; Z88.0 Allergy status to penicillin; Z79.01 Long term (current) use of anticoagulants; Z79.51 Long term (current) use of inhaled steroids; Z79.82 Long term (current) use of aspirin; Z79.84 Long term (current) use of oral hypoglycemic drugs; Z79.85 Long-term (current) use of injectable non-insulin antidiabetic drugs; Z79.899 Other long term (current) drug therapy
CPT/HCPCS: 43235; 45385; 88305; J3010

== ENCOUNTER 2024-08-20 12:57 | Inpatient (IN) | payer OTHER ==
[~2024-08-20] VITALS: Ht 160 cm; Wt 113.4 kg
[2024-08-20] MEDS ORDERED: SEMA1.7P INJ (16:26)
[2024-08-20 16:28] VITALS: BP 124/58; TEMP 98.5; O2SAT 90
[2024-08-20 17:23] LABS: VENOUS BASE EXCESS 2.8 (-2.0-2.0); VENOUS HCO3 27.1 MMOL/L (23.0-27.0); VENOUS O2 SATURATION 85.6 % (60.0-80.0); VENOUS PARTIAL PRESSURE CO2 40.2 mmHg (38.0-50.0); VENOUS PARTIAL PRESSURE O2 49.9 mmHg (30.0-50.0); VENOUS PH 7.446 UNITS (7.330-7.430); VENOUS STANDARD HCO3 26.7 MMOL/L; VENOUS TOTAL CO2 28.3 MMOL/L (24.0-28.0)
[2024-08-20 17:27] LABS: BASO # 0.1 10^3/uL (0.0-0.2); BASO % 0.7 % (0.0-1.0); EOS # 0.3 10^3/uL (0.0-0.5); EOS % 2.5 % (0.0-3.0); HEMATOCRIT 42.8 % (36.0-47.0); HEMOGLOBIN 13.9 g/dl (12.0-15.5); LYMPH % 16.6 % (24.0-44.0); MEAN CORPUSCULAR HEMOGLOBIN 30.2 pg (27.0-33.0); MEAN CORPUSCULAR HGB CONC 32.5 g/dl (32.0-36.5); MONO % 8.3 % (2.0-8.0); NEUTROPHILS # 8.5 10^3/uL (1.5-8.5); NEUTROPHILS % 71.5 % (36.0-66.0); PLATELET COUNT, AUTOMATED 161 10^3/uL (150-450); WHITE BLOOD COUNT 11.9 10^3/uL (4.0-10.0)
[2024-08-20 17:31] LABS: ALBUMIN 3.3 G/DL (3.2-5.2); ALKALINE PHOSPHATASE 94 U/L (35-104); ALT/SGPT 45 U/L (7.0-40); AST/SGOT 31 U/L (<34); BILIRUBIN,TOTAL 0.5 MG/DL (0.3-1.2); BLOOD UREA NITROGEN 18 MG/DL (9-23); CALCIUM LEVEL 9.2 MG/DL (8.3-10.6); CARBON DIOXIDE LEVEL 27 MMOL/L (20-31); CHLORIDE LEVEL 105 MMOL/L (98-107); CREATININE FOR GFR 0.84 MG/DL (0.55-1.30); GLOMERULAR FILTRATION RATE > 60.0 (>45); GLUCOSE, FASTING 119 MG/DL (74-106); MAGNESIUM LEVEL 1.8 MG/DL (1.8-2.4); PHOSPHORUS LEVEL 2.9 MG/DL (2.4-5.1); POTASSIUM SERUM 3.6 MMOL/L (3.5-5.1); SODIUM LEVEL 141 MMOL/L (136-145); TOTAL PROTEIN 7.8 G/DL (5.7-8.2)
[2024-08-20 17:36] LABS: PROCALCITONIN 0.05 ng/ml
[2024-08-20] MEDS ORDERED: FUROSEMIDE 40MG/4ML VIAL IV SCH (18:00)
[2024-08-20 18:51] LABS: INR 1.16; PROTHROMBIN TIME 15.1 SECONDS (12.5-14.5)
[2024-08-20] MEDS: IPRATROPIUM 0.5MG/ALBUTEROL 2.5MG INH SOL UD 3ML (DUONEB) NEB SCH (19:23)
[2024-08-20 19:57] VITALS: BP 124/59; TEMP 97.1; O2SAT 96
[2024-08-20 20:16] LABS: CREATININE FOR GFR 0.83 MG/DL (0.55-1.30); GLOMERULAR FILTRATION RATE > 60.0 (>45)
[2024-08-20] MEDS: FUROSEMIDE 40MG/4ML VIAL IV SCH (20:24)
[2024-08-20] MEDS: ENOXAPARIN 120MG/0.8ML SYRINGE SC SCH (20:24)
[2024-08-20] MEDS: ATORVASTATIN 20 MG TAB PO SCH (20:25)
[2024-08-20] MEDS: METOPROLOL TART 25 MG TABLET PO SCH (20:25)
[2024-08-20] MEDS: GABAPENTIN 100 MG CAP PO SCH (20:25)
[2024-08-20] MEDS: OMEPRAZOLE 20MG CAP PO SCH (20:25)
[2024-08-20] MEDS: POTASSIUM CHLORIDE 10MEQ SR TABLET PO SCH (20:25)
[2024-08-20] MEDS: WARFARIN SOD 3MG TAB PO SCH (20:33)
[2024-08-20] MEDS: ACETAMINOPHEN 500 MG TAB PO ONE (20:46)
[2024-08-20] MEDS ORDERED: WARFARIN SOD 2MG TAB PO ONE (23:35)
[2024-08-21] VITALS (7 sets, daily range): BP systolic 108–137; BP diastolic 55–64; TEMP 96.8–98.3; O2SAT 91–98
[2024-08-21 00:35] LABS: INR 1.1; PROTHROMBIN TIME 14.5 SECONDS (12.5-14.5)
[2024-08-21 06:52] LABS: INR 1.08; PROTHROMBIN TIME 14.4 SECONDS (12.5-14.5)
[2024-08-21 07:00] LABS: CHOLESTEROL LEVEL 125 MG/DL (<200); CHOLESTEROL RISK RATIO 4.96 (<5); HDL CHOLESTEROL 25.2 MG/DL (>40); LDL CHOLESTEROL 55.6 MG/DL (<100); NON-HDL-C 99.8 MG/DL; TRIGLYCERIDES LEVEL 221 MG/DL (<150)
[2024-08-21 08:21] LABS: ALBUMIN 2.9 G/DL (3.2-5.2); ALKALINE PHOSPHATASE 84 U/L (35-104); ALT/SGPT 36 U/L (7.0-40); AST/SGOT 20 U/L (<34); BILIRUBIN,TOTAL 0.5 MG/DL (0.3-1.2); BLOOD UREA NITROGEN 19 MG/DL (9-23); CALCIUM LEVEL 9.5 MG/DL (8.3-10.6); CARBON DIOXIDE LEVEL 28 MMOL/L (20-31); CHLORIDE LEVEL 105 MMOL/L (98-107); CREATININE FOR GFR 0.82 MG/DL (0.55-1.30); GLOMERULAR FILTRATION RATE > 60.0 (>45); GLUCOSE, FASTING 133 MG/DL (74-106); POTASSIUM SERUM 3.3 MMOL/L (3.5-5.1); SODIUM LEVEL 141 MMOL/L (136-145); TOTAL PROTEIN 7.4 G/DL (5.7-8.2)
[2024-08-21] MEDS: FUROSEMIDE 40MG/4ML VIAL IV SCH (09:57)
[2024-08-21] MEDS: ASPIRIN 81MG CHEW TABLET PO SCH (09:58)
[2024-08-21] MEDS: POTASSIUM CHLORIDE 10MEQ SR TABLET PO SCH (09:58)
[2024-08-21] MEDS: SPIRONOLACTONE 25 MG TAB PO SCH (09:59)
[2024-08-21] MEDS: WARFARIN SOD 3MG TAB PO SCH (16:41)
[2024-08-22 00:40] VITALS: BP 124/58; TEMP 97.8; O2SAT 93
[2024-08-22 04:22] VITALS: BP 121/72; TEMP 98; O2SAT 92
[2024-08-22 07:42] VITALS: BP 145/63; TEMP 96.9; O2SAT 92
[2024-08-22 07:57] LABS: BASO # 0.1 10^3/uL (0.0-0.2); BASO % 0.7 % (0.0-1.0); EOS # 0.2 10^3/uL (0.0-0.5); EOS % 3.1 % (0.0-3.0); HEMATOCRIT 41.8 % (36.0-47.0); HEMOGLOBIN 13.2 g/dl (12.0-15.5); LYMPH # 1.6 10^3/uL (1.5-5.0); LYMPH % 21.3 % (24.0-44.0); MEAN CORPUSCULAR HEMOGLOBIN 29.8 pg (27.0-33.0); MEAN CORPUSCULAR HGB CONC 31.6 g/dl (32.0-36.5); MEAN CORPUSCULAR VOLUME 94.4 fl (80.0-96.0); MONO # 0.8 10^3/uL (0.0-0.8); MONO % 10.7 % (2.0-8.0); NEUTROPHILS # 4.9 10^3/uL (1.5-8.5); NEUTROPHILS % 63.7 % (36.0-66.0); PLATELET COUNT, AUTOMATED 147 10^3/uL (150-450); RED BLOOD COUNT 4.43 10^6/uL (4.00-5.40); WHITE BLOOD COUNT 7.7 10^3/uL (4.0-10.0)
[2024-08-22 08:08] LABS: INR 1.14; PROTHROMBIN TIME 14.9 SECONDS (12.5-14.5)
[2024-08-22 08:52] VITALS: BP 145/63
[2024-08-22 08:58] LABS: BLOOD UREA NITROGEN 16 MG/DL (9-23); CALCIUM LEVEL 9.6 MG/DL (8.3-10.6); CARBON DIOXIDE LEVEL 27 MMOL/L (20-31); CHLORIDE LEVEL 109 MMOL/L (98-107); CREATININE FOR GFR 0.83 MG/DL (0.55-1.30); GLOMERULAR FILTRATION RATE > 60.0 (>45); GLUCOSE, FASTING 129 MG/DL (74-106); SODIUM LEVEL 143 MMOL/L (136-145)
[2024-08-22] MEDS: WARFARIN SOD 3MG TAB PO ONE (12:06)
== END 2024-08-22 13:00 | disposition home or self-care (01) | DRG 291 ==
LOC: M ED INP 15:49 → M PCU 16:09
PROVIDERS: ADMIT Internal Medicine; ATTEND Internal Medicine
PROC: B246ZZZ Ultrasonography of Right and Left Heart (ICD-10-PCS; principal; 2024-08-21)
DX: I13.0 Hypertensive heart and chronic kidney disease with heart failure and stage 1 through stage 4 chronic kidney disease, or unspecified chronic kidney disease (principal); J96.00 Acute respiratory failure, unspecified whether with hypoxia or hypercapnia; I50.32 Chronic diastolic (congestive) heart failure; E78.5 Hyperlipidemia, unspecified; I48.91 Unspecified atrial fibrillation; I25.10 Atherosclerotic heart disease of native coronary artery without angina pectoris; J44.9 Chronic obstructive pulmonary disease, unspecified; G47.33 Obstructive sleep apnea (adult) (pediatric); N18.30 Chronic kidney disease, stage 3 unspecified; D64.9 Anemia, unspecified; K76.0 Fatty (change of) liver, not elsewhere classified; F43.20 Adjustment disorder, unspecified; K44.9 Diaphragmatic hernia without obstruction or gangrene; Z87.891 Personal history of nicotine dependence; Z95.2 Presence of prosthetic heart valve; Z99.81 Dependence on supplemental oxygen; Z86.718 Personal history of other venous thrombosis and embolism; Z79.01 Long term (current) use of anticoagulants; Z95.5 Presence of coronary angioplasty implant and graft; E55.9 Vitamin D deficiency, unspecified; Z79.82 Long term (current) use of aspirin; Z79.899 Other long term (current) drug therapy; Z88.0 Allergy status to penicillin

== ENCOUNTER 2024-08-20 14:23 | Emergency (ER) | payer OTHER ==
[~2024-08-20] VITALS: Ht 160 cm; Wt 116.0 kg
[~2024-08-20 14:23] MED LIST changes: -ADV100INH INH; +ADVA1AER8 INH
[2024-08-20 14:26] VITALS: TEMP 98.6
[2024-08-20] MEDS ORDERED: methylPREDNISolone 125MG 2ML VIAL IV ONE (15:25)
[2024-08-20 15:45] VITALS: BP 105/60; O2SAT 88
[2024-08-20] MEDS ORDERED: SEMA1.7P INJ (16:26)
[2024-08-20] MEDS ORDERED: HOME MED LIST COMPLETE! XX SCH (16:30)
[2024-08-20] MEDS ORDERED: ATORVASTATIN 20 MG TAB PO SCH (21:00)
[2024-08-20] MEDS ORDERED: POTASSIUM CHLORIDE 10MEQ SR TABLET PO SCH (21:00)
[2024-08-20] MEDS ORDERED: GABAPENTIN 100 MG CAP PO SCH (21:00)
[2024-08-20] MEDS ORDERED: METOPROLOL TART 25 MG TABLET PO SCH (21:00)
[2024-08-20] MEDS ORDERED: OMEPRAZOLE 20MG CAP PO SCH (21:00)
[2024-08-21] MEDS ORDERED: ASPIRIN 81MG CHEW TABLET PO SCH (09:00)
[2024-08-21] MEDS ORDERED: WARFARIN SOD 1MG TAB PO SCH (09:00)
[2024-08-21] MEDS ORDERED: SPIRONOLACTONE 25 MG TAB PO SCH (09:00)
== END 2024-08-20 15:48 | disposition still patient (30) ==
LOC: M ED 14:23
DX: R06.00 Dyspnea, unspecified (principal); I48.91 Unspecified atrial fibrillation; I25.2 Old myocardial infarction; I11.0 Hypertensive heart disease with heart failure; J44.9 Chronic obstructive pulmonary disease, unspecified; E78.5 Hyperlipidemia, unspecified; Z98.61 Coronary angioplasty status; Z87.891 Personal history of nicotine dependence; Z79.01 Long term (current) use of anticoagulants; Z79.899 Other long term (current) drug therapy; Z88.0 Allergy status to penicillin

== ENCOUNTER → 2024-10-27 | Outpatient (CLI) | payer OTHER ==
[~2024-10-27] MED LIST changes: +SEMA1.7P INJ
== END ==
LOC: M PLAIMG 11:04
PROVIDERS: ATTEND Internal Medicine Pulmonary Disease
DX: R91.8 Other nonspecific abnormal finding of lung field (principal); K80.20 Calculus of gallbladder without cholecystitis without obstruction

== ENCOUNTER → 2024-10-28 | Outpatient (CLI) | payer OTHER ==
[2024-10-28 14:40] LABS: PROTHROMBIN TIME 59.2 SECONDS (12.5-14.5)
[2024-10-28 14:52] LABS: INR 7.05
== END ==
LOC: M PLALAB 13:17
PROVIDERS: ATTEND Internal Medicine Cardiovascular Disease
DX: I48.0 Paroxysmal atrial fibrillation (principal)

== ENCOUNTER 2024-11-01 12:32 | Inpatient (IN) | payer OTHER ==
[~2024-11-01] VITALS: Ht 160 cm; Wt 109.6 kg
[2024-11-01 13:26] LABS: CK-MB VALUE MASS < 1.0 NG/ML (<3.6)
[2024-11-01 13:27] LABS: BASO # 0.1 10^3/uL (0.0-0.2); BASO % 0.4 % (0.0-1.0); EOS # 0.1 10^3/uL (0.0-0.5); EOS % 1.2 % (0.0-3.0); HEMATOCRIT 41.6 % (36.0-47.0); LYMPH # 1.6 10^3/uL (1.5-5.0); LYMPH % 14.1 % (24.0-44.0); MEAN CORPUSCULAR HGB CONC 31.3 g/dl (32.0-36.5); MEAN CORPUSCULAR VOLUME 89.5 fl (80.0-96.0); MONO % 8.6 % (2.0-8.0); NEUTROPHILS # 8.7 10^3/uL (1.5-8.5); NEUTROPHILS % 75.4 % (36.0-66.0); PLATELET COUNT, AUTOMATED 216 10^3/uL (150-450); RED BLOOD COUNT 4.65 10^6/uL (4.00-5.40); WHITE BLOOD COUNT 11.6 10^3/uL (4.0-10.0)
[2024-11-01 13:28] LABS: ALKALINE PHOSPHATASE 74 U/L (35-104); ALT/SGPT 26 U/L (7.0-40); AST/SGOT 19 U/L (<34); BILIRUBIN,DIRECT 0.2 MG/DL (<0.4); BILIRUBIN,TOTAL 0.6 MG/DL (0.3-1.2); BLOOD UREA NITROGEN 20 MG/DL (9-23); CALCIUM LEVEL 9.4 MG/DL (8.3-10.6); CARBON DIOXIDE LEVEL 30 MMOL/L (20-31); CHLORIDE LEVEL 102 MMOL/L (98-107); CPK CREATINE PHOSPHOKINASE 71 U/L (34-145); CREATININE FOR GFR 0.73 MG/DL (0.55-1.30); GLOMERULAR FILTRATION RATE > 60.0 (>45); GLUCOSE, FASTING 106 MG/DL (74-106); POTASSIUM SERUM 3.7 MMOL/L (3.5-5.1); SODIUM LEVEL 141 MMOL/L (136-145); TOTAL PROTEIN 8.2 G/DL (5.7-8.2)
[2024-11-01 13:30] LABS: THYROID STIMULATING HORMONE 0.703 uIU/ML (0.55-4.78)
[2024-11-01 13:47] LABS: ABG HCO3 28.3 MMOL/L (22.0-26.0); ABG PARTIAL PRESSURE CO2 37.4 mmHg (35.0-45.0); ABG PARTIAL PRESSURE O2 53.7 mmHg (75.0-100.0); ABG STANDARD HCO3 28.7 MMOL/L. (22.0-26.0); ABG TOTAL CO2 29.5 MMOL/L (23.0-31.0); ABG pH (ARTERIAL) 7.497 UNITS (7.350-7.450)
[2024-11-01] MEDS: dexAMETHasone 20MG/5ML VIAL IV ONE (16:33)
[2024-11-01] MEDS ORDERED: IPRATROPIUM 0.5MG/ALBUTEROL 2.5MG INH SOL UD 3ML (DUONEB) NEB PRN (16:45)
[2024-11-01] MEDS ORDERED: ISOVUE-370 76% 100ML VIAL As Ordered ONE (16:54)
[2024-11-01] MEDS: IPRATROPIUM 0.5MG/ALBUTEROL 2.5MG INH SOL UD 3ML (DUONEB) NEB ONE (17:12)
[2024-11-01] MEDS ORDERED: BUME2TAB3 PO (17:39)
[2024-11-01] MEDS ORDERED: METF500T13 PO (17:39)
[2024-11-01] MEDS ORDERED: HOME MED LIST COMPLETE! XX SCH (17:40)
[2024-11-01 18:30] LABS: INR 2.28; PROTHROMBIN TIME 25.2 SECONDS (12.5-14.5)
[2024-11-01] MEDS: IPRATROPIUM 0.5MG/ALBUTEROL 2.5MG INH SOL UD 3ML (DUONEB) NEB SCH (20:35)
[2024-11-01 21:08] VITALS: BP 137/70; TEMP 97; O2SAT 93
[2024-11-01] MEDS: guaiFENesin ER TABLET 600 MG TAB PO SCH (21:36)
[2024-11-01] MEDS: predniSONE 20 MG TAB PO SCH (21:39)
[2024-11-02 03:50] VITALS: BP 122/60; TEMP 97.3; O2SAT 97
[2024-11-02] MEDS ORDERED: ALBUTEROL SULFATE 2.5MG/0.5ML INH NEB SOLN NEB PRN (07:30)
[2024-11-02] MEDS: ADVAIR HFA 115/21MCG INHALER INH SCH (08:00)
[2024-11-02] MEDS: TIOTROPIUM INHALER/CAPSULE (SPIRIVA) INH SCH (08:00)
[2024-11-02 08:49] LABS: HEMATOCRIT 40.8 % (36.0-47.0); HEMOGLOBIN 12.9 g/dl (12.0-15.5); MEAN CORPUSCULAR HEMOGLOBIN 28.1 pg (27.0-33.0); MEAN CORPUSCULAR HGB CONC 31.6 g/dl (32.0-36.5); MEAN CORPUSCULAR VOLUME 88.9 fl (80.0-96.0); PLATELET COUNT, AUTOMATED 203 10^3/uL (150-450); RED BLOOD COUNT 4.59 10^6/uL (4.00-5.40); WHITE BLOOD COUNT 11.4 10^3/uL (4.0-10.0)
[2024-11-02] MEDS ORDERED: ACETAMINOPHEN 325 MG TAB PO PRN (08:50)
[2024-11-02] MEDS ORDERED: ADVAIR HFA 230/21MCG INHALER INH SCH (09:00)
[2024-11-02] MEDS: FUROSEMIDE 100MG/10ML VIAL IV ONE (09:18)
[2024-11-02] MEDS: methylPREDNISolone 125MG 2ML VIAL IV SCH (09:18)
[2024-11-02] MEDS: metOLazone 5 MG TAB PO ONE (09:19)
[2024-11-02] MEDS: ASPIRIN 81MG CHEW TABLET PO SCH (09:19)
[2024-11-02] MEDS: DAPAGLIFLOZIN PROPANEDIOL 10MG TABLET (FARXIGA) PO SCH (09:19)
[2024-11-02] MEDS: POTASSIUM CHLORIDE 10MEQ SR TABLET PO SCH (09:19)
[2024-11-02] MEDS: CINACALCET 30 MG TAB (SENSIPAR) PO SCH (09:19)
[2024-11-02] MEDS: OMEPRAZOLE 20MG CAP PO SCH (09:19)
[2024-11-02] MEDS: GABAPENTIN 100 MG CAP PO SCH (09:19)
[2024-11-02 09:21] LABS: BLOOD UREA NITROGEN 19 MG/DL (9-23); CALCIUM LEVEL 9.3 MG/DL (8.3-10.6); CARBON DIOXIDE LEVEL 27 MMOL/L (20-31); CHLORIDE LEVEL 102 MMOL/L (98-107); CREATININE FOR GFR 0.66 MG/DL (0.55-1.30); GLOMERULAR FILTRATION RATE > 60.0 (>45); GLUCOSE, FASTING 236 MG/DL (74-106); POTASSIUM SERUM 3.4 MMOL/L (3.5-5.1); SODIUM LEVEL 141 MMOL/L (136-145)
[2024-11-02] MEDS: METOPROLOL TART 25 MG TABLET PO SCH (09:23)
[2024-11-02 10:05] LABS: INR 2.18; PARTIAL THROMBOPLASTIN TIME 39.7 SECONDS (24.8-34.2); PROTHROMBIN TIME 24.4 SECONDS (12.5-14.5)
[2024-11-02 12:15] VITALS: BP 125/67; TEMP 97.7; O2SAT 93
[2024-11-02] MEDS: WARFARIN SOD 3MG TAB PO SCH (16:27)
[2024-11-02] MEDS: BUMETANIDE 1 MG TAB PO SCH (16:28)
[2024-11-02] MEDS: SPIRONOLACTONE 25 MG TAB PO SCH (16:28)
[2024-11-02] MEDS: POTASSIUM CHLORIDE 10MEQ SR TABLET PO ONE (16:28)
[2024-11-02] MEDS ORDERED: WARFARIN SOD 3MG TAB PO SCH (17:00)
[2024-11-02 19:59] VITALS: BP 122/45; TEMP 96.8; O2SAT 93
[2024-11-02] MEDS: RAMELTEON 8 MG TAB (ROZEREM) PO SCH (20:39)
[2024-11-02] MEDS: ATORVASTATIN 20 MG TAB PO SCH (20:39)
[2024-11-03 04:00] VITALS: BP 128/51; TEMP 97.3; O2SAT 96
[2024-11-03 06:03] LABS: HEMATOCRIT 42.9 % (36.0-47.0); HEMOGLOBIN 13.7 g/dl (12.0-15.5); MEAN CORPUSCULAR HEMOGLOBIN 28.2 pg (27.0-33.0); MEAN CORPUSCULAR HGB CONC 31.9 g/dl (32.0-36.5); MEAN CORPUSCULAR VOLUME 88.3 fl (80.0-96.0); PLATELET COUNT, AUTOMATED 251 10^3/uL (150-450); RED BLOOD COUNT 4.86 10^6/uL (4.00-5.40); WHITE BLOOD COUNT 19.3 10^3/uL (4.0-10.0)
[2024-11-03 06:27] LABS: ALBUMIN 3.2 G/DL (3.2-5.2); ALKALINE PHOSPHATASE 81 U/L (35-104); ALT/SGPT 21 U/L (7.0-40); AST/SGOT 13 U/L (<34); BILIRUBIN,TOTAL 0.4 MG/DL (0.3-1.2); BLOOD UREA NITROGEN 34 MG/DL (9-23); CALCIUM LEVEL 10.4 MG/DL (8.3-10.6); CARBON DIOXIDE LEVEL 28 MMOL/L (20-31); CHLORIDE LEVEL 98 MMOL/L (98-107); CREATININE FOR GFR 0.82 MG/DL (0.55-1.30); GLOMERULAR FILTRATION RATE > 60.0 (>45); GLUCOSE, FASTING 278 MG/DL (74-106); POTASSIUM SERUM 4.5 MMOL/L (3.5-5.1); SODIUM LEVEL 137 MMOL/L (136-145); TOTAL PROTEIN 8.4 G/DL (5.7-8.2)
[2024-11-03 06:49] LABS: INR 2.31; PARTIAL THROMBOPLASTIN TIME 34.3 SECONDS (24.8-34.2); PROTHROMBIN TIME 25.5 SECONDS (12.5-14.5)
[2024-11-03] MEDS ORDERED: GLUCOSE 4 GM CHEW PO PRN (07:20)
[2024-11-03] MEDS ORDERED: DEXTROSE 50% 50ML SYRINGE IV PRN (07:20)
[2024-11-03] MEDS ORDERED: GLUCAGON INJ 1MG VIAL SC PRN (07:20)
[2024-11-03 08:11] LABS: HEMOGLOBIN A1c 6.2 % (4.0-6.0)
[2024-11-03] MEDS: BUMETANIDE 1 MG TAB PO SCH (08:19)
[2024-11-03] MEDS: INSULIN LISPRO (NovoLOG) PER UNIT SC SCH ×2 (08:21→21:04)
[2024-11-03 12:00] VITALS: BP 124/68; TEMP 97.6; O2SAT 96
[2024-11-03] MEDS: methylPREDNISolone 125MG 2ML VIAL IV SCH (12:59)
[2024-11-03 19:59] VITALS: BP 126/66; TEMP 97.7; O2SAT 89
[2024-11-03] MEDS: LEVEMIR (INSULIN DETEMIR) 1 UNITS/0.01ML SC SCH (21:01)
[2024-11-04 04:00] VITALS: BP 145/69; TEMP 96.1; O2SAT 92
[2024-11-04 05:19] LABS: HEMATOCRIT 45.7 % (36.0-47.0); HEMOGLOBIN 14.5 g/dl (12.0-15.5); MEAN CORPUSCULAR HEMOGLOBIN 27.5 pg (27.0-33.0); MEAN CORPUSCULAR HGB CONC 31.7 g/dl (32.0-36.5); MEAN CORPUSCULAR VOLUME 86.7 fl (80.0-96.0); PLATELET COUNT, AUTOMATED 287 10^3/uL (150-450); RED BLOOD COUNT 5.27 10^6/uL (4.00-5.40); WHITE BLOOD COUNT 17.7 10^3/uL (4.0-10.0)
[2024-11-04 05:38] LABS: INR 2.28; PARTIAL THROMBOPLASTIN TIME 33.8 SECONDS (24.8-34.2); PROTHROMBIN TIME 25.2 SECONDS (12.5-14.5)
[2024-11-04 05:41] LABS: ALBUMIN 3.4 G/DL (3.2-5.2); BILIRUBIN,TOTAL 0.4 MG/DL (0.3-1.2); CREATININE FOR GFR 1.01 MG/DL (0.55-1.30); GLOMERULAR FILTRATION RATE 58.9 (>45); POTASSIUM SERUM 3.8 MMOL/L (3.5-5.1); TOTAL PROTEIN 8.8 G/DL (5.7-8.2)
[2024-11-04 05:53] VITALS: BP 164/102; TEMP 97.7; O2SAT 95
[2024-11-04 08:14] VITALS: BP 152/67
[2024-11-04] MEDS: predniSONE 20 MG TAB PO SCH (08:15)
[2024-11-04] MEDS ORDERED: PRED20TA PO (10:05)
[2024-11-04] MEDS ORDERED: VENTAER INH (10:05)
== END 2024-11-04 12:50 | disposition home or self-care (01) | DRG 189 ==
LOC: EDBD 12:32 → M ED 12:32 → M ED INP 16:45 → M MS5PR 21:08
PROVIDERS: ADMIT Internal Medicine; ATTEND Internal Medicine
DX: J96.21 Acute and chronic respiratory failure with hypoxia (principal); I50.33 Acute on chronic diastolic (congestive) heart failure; J44.1 Chronic obstructive pulmonary disease with (acute) exacerbation; J44.0 Chronic obstructive pulmonary disease with (acute) lower respiratory infection; Z99.81 Dependence on supplemental oxygen; I25.10 Atherosclerotic heart disease of native coronary artery without angina pectoris; Z95.2 Presence of prosthetic heart valve; I48.0 Paroxysmal atrial fibrillation; R73.03 Prediabetes; G47.33 Obstructive sleep apnea (adult) (pediatric); E87.6 Hypokalemia; D47.2 Monoclonal gammopathy; J20.5 Acute bronchitis due to respiratory syncytial virus; Z79.82 Long term (current) use of aspirin; Z79.01 Long term (current) use of anticoagulants; Z79.899 Other long term (current) drug therapy; Z88.0 Allergy status to penicillin

== ENCOUNTER 2024-12-20 10:06 | Inpatient (IN) | payer OTHER ==
[~2024-12-20] VITALS: Ht 160 cm; Wt 116.3 kg
[~2024-12-20 10:06] MED LIST changes: +METF500T13 PO; +PRED20TA PO; +VENTAER INH
[2024-12-20 10:39] LABS: VENOUS BASE EXCESS 2.6 (-2.0-2.0); VENOUS HCO3 29.6 MMOL/L (23.0-27.0); VENOUS O2 SATURATION 42.1 % (60.0-80.0); VENOUS PARTIAL PRESSURE CO2 54.9 mmHg (38.0-50.0); VENOUS PARTIAL PRESSURE O2 26.1 mmHg (30.0-50.0); VENOUS PH 7.349 UNITS (7.330-7.430); VENOUS STANDARD HCO3 25.3 MMOL/L; VENOUS TOTAL CO2 31.2 MMOL/L (24.0-28.0)
[2024-12-20 10:48] LABS: BASO # 0.1 10^3/uL (0.0-0.2); BASO % 0.6 % (0.0-1.0); EOS # 0.1 10^3/uL (0.0-0.5); EOS % 1.3 % (0.0-3.0); HEMATOCRIT 46.2 % (36.0-47.0); HEMOGLOBIN 14.6 g/dl (12.0-15.5); LYMPH # 1.7 10^3/uL (1.5-5.0); LYMPH % 18.5 % (24.0-44.0); MEAN CORPUSCULAR HEMOGLOBIN 28.3 pg (27.0-33.0); MEAN CORPUSCULAR HGB CONC 31.6 g/dl (32.0-36.5); MEAN CORPUSCULAR VOLUME 89.7 fl (80.0-96.0); MONO # 0.8 10^3/uL (0.0-0.8); MONO % 8.5 % (2.0-8.0); NEUTROPHILS # 6.6 10^3/uL (1.5-8.5); NEUTROPHILS % 70.6 % (36.0-66.0); PLATELET COUNT, AUTOMATED 178 10^3/uL (150-450); RED BLOOD COUNT 5.15 10^6/uL (4.00-5.40); WHITE BLOOD COUNT 9.3 10^3/uL (4.0-10.0)
[2024-12-20 11:14] LABS: ALBUMIN 3.4 G/DL (3.2-5.2); ALKALINE PHOSPHATASE 64 U/L (35-104); ALT/SGPT 38 U/L (7.0-40); AST/SGOT 22 U/L (<34); BILIRUBIN,DIRECT 0.2 MG/DL (<0.4); BILIRUBIN,TOTAL 0.7 MG/DL (0.3-1.2); BLOOD UREA NITROGEN 14 MG/DL (9-23); CALCIUM LEVEL 9.3 MG/DL (8.3-10.6); CARBON DIOXIDE LEVEL 31 MMOL/L (20-31); CHLORIDE LEVEL 99 MMOL/L (98-107); CREATININE FOR GFR 0.71 MG/DL (0.55-1.30); GLOMERULAR FILTRATION RATE > 60.0 (>45); GLUCOSE, FASTING 179 MG/DL (74-106); POTASSIUM SERUM 3.4 MMOL/L (3.5-5.1); SODIUM LEVEL 142 MMOL/L (136-145); TOTAL PROTEIN 7.6 G/DL (5.7-8.2)
[2024-12-20 12:12] LABS: CK-MB VALUE MASS < 1.0 NG/ML (<3.6)
[2024-12-20 12:13] LABS: CPK CREATINE PHOSPHOKINASE 76 U/L (34-145); MB/CK RELATIVE INDEX 1.31 (< OR =4)
[2024-12-20] MEDS: FUROSEMIDE 40MG/4ML VIAL IV ONE (12:27)
[2024-12-20 13:00] LABS: INR 1.89; PROTHROMBIN TIME 21.9 SECONDS (12.5-14.5)
[2024-12-20 13:20] LABS: CK-MB VALUE MASS < 1.0 NG/ML (<3.6); CPK CREATINE PHOSPHOKINASE 84 U/L (34-145); MB/CK RELATIVE INDEX 1.19 (< OR =4)
[2024-12-20] MEDS ORDERED: HOME MED LIST COMPLETE! XX SCH (16:05)
[2024-12-20] MEDS ORDERED: WARFARIN SOD 1MG TAB PO SCH (17:00)
[2024-12-20] MEDS: SPIRONOLACTONE 25 MG TAB PO SCH (18:50)
[2024-12-20] MEDS: FUROSEMIDE 40MG/4ML VIAL IV SCH (18:51)
[2024-12-20] MEDS: SYMBICORT 160/4.5MCG INHALER 6GM INH SCH (19:00)
[2024-12-20] MEDS: IPRATROPIUM 0.5MG/ALBUTEROL 2.5MG INH SOL UD 3ML (DUONEB) NEB SCH (19:00)
[2024-12-20] MEDS: WARFARIN SOD 3MG TAB PO SCH (19:07)
[2024-12-20 19:08] VITALS: BP 140/61; TEMP 97.5; O2SAT 91
[2024-12-20] MEDS: GABAPENTIN 100 MG CAP PO SCH (20:58)
[2024-12-20] MEDS: METOPROLOL TART 25 MG TABLET PO SCH (20:58)
[2024-12-20] MEDS: OMEPRAZOLE 20MG CAP PO SCH (20:58)
[2024-12-20] MEDS: ATORVASTATIN 20 MG TAB PO SCH (20:58)
[2024-12-20 21:42] VITALS: BP 146/73; TEMP 97; O2SAT 91
[2024-12-20] MEDS ORDERED: GLUCOSE 4 GM CHEW PO PRN (22:10)
[2024-12-20] MEDS ORDERED: GLUCAGON INJ 1MG VIAL SC PRN (22:10)
[2024-12-20] MEDS ORDERED: DEXTROSE 50% 50ML SYRINGE IV PRN (22:10)
[2024-12-20] MEDS: POTASSIUM CHLORIDE 10MEQ SR TABLET PO ONE (23:10)
[2024-12-21] VITALS: BP 150/73; TEMP 97.2; O2SAT 93
[2024-12-21 01:46] LABS: BLOOD UREA NITROGEN 13 MG/DL (9-23); CALCIUM LEVEL 9.6 MG/DL (8.3-10.6); CARBON DIOXIDE LEVEL 29 MMOL/L (20-31); CHLORIDE LEVEL 98 MMOL/L (98-107); CREATININE FOR GFR 0.74 MG/DL (0.55-1.30); GLOMERULAR FILTRATION RATE > 60.0 (>45); GLUCOSE, FASTING 159 MG/DL (74-106); MAGNESIUM LEVEL 1.8 MG/DL (1.8-2.4); POTASSIUM SERUM 3.3 MMOL/L (3.5-5.1); SODIUM LEVEL 140 MMOL/L (136-145)
[2024-12-21] MEDS: KCL 10MEQ/100ML SWI (KRUN) 10 MEQ in IV 1 EA IV ONE (04:03)
[2024-12-21 04:29] VITALS: BP 151/75; TEMP 97.2; O2SAT 96
[2024-12-21 06:34] LABS: HEMATOCRIT 46.4 % (36.0-47.0); HEMOGLOBIN 14.6 g/dl (12.0-15.5); MEAN CORPUSCULAR HEMOGLOBIN 27.7 pg (27.0-33.0); MEAN CORPUSCULAR HGB CONC 31.5 g/dl (32.0-36.5); PLATELET COUNT, AUTOMATED 170 10^3/uL (150-450); RED BLOOD COUNT 5.27 10^6/uL (4.00-5.40); WHITE BLOOD COUNT 7.8 10^3/uL (4.0-10.0)
[2024-12-21 06:48] LABS: INR 1.66; PROTHROMBIN TIME 19.8 SECONDS (12.5-14.5)
[2024-12-21 07:01] LABS: BLOOD UREA NITROGEN 11 MG/DL (9-23); CALCIUM LEVEL 9.5 MG/DL (8.3-10.6); CARBON DIOXIDE LEVEL 29 MMOL/L (20-31); CHLORIDE LEVEL 102 MMOL/L (98-107); CREATININE FOR GFR 0.72 MG/DL (0.55-1.30); GLOMERULAR FILTRATION RATE > 60.0 (>45); GLUCOSE, FASTING 169 MG/DL (74-106); MAGNESIUM LEVEL 1.8 MG/DL (1.8-2.4); POTASSIUM SERUM 3.6 MMOL/L (3.5-5.1); SODIUM LEVEL 143 MMOL/L (136-145)
[2024-12-21 08:00] VITALS: BP 143/71; TEMP 97.2; O2SAT 89
[2024-12-21] MEDS: INSULIN LISPRO (NovoLOG) PER UNIT SC SCH (08:08)
[2024-12-21] MEDS: FUROSEMIDE 40MG/4ML VIAL IV ONE (08:08)
[2024-12-21] MEDS: ASPIRIN 81MG CHEW TABLET PO SCH (08:09)
[2024-12-21] MEDS: POTASSIUM CHLORIDE 10MEQ SR TABLET PO SCH (08:09)
[2024-12-21] MEDS ORDERED: ISOVUE-370 76% 100ML VIAL As Ordered ONE (09:54)
[2024-12-21 12:00] VITALS: BP 151/69; TEMP 97.9; O2SAT 89
[2024-12-21] MEDS: FUROSEMIDE 100MG/10ML VIAL IV SCH (13:31)
[2024-12-21 16:00] VITALS: BP 163/94; TEMP 97.5; O2SAT 87
[2024-12-21] MEDS ORDERED: BACTRIM 160MG/800MG DS TAB PO SCH (17:00)
[2024-12-21] MEDS: CEPHALEXIN 500 MG CAP PO SCH (18:01)
[2024-12-21 21:00] VITALS: BP 137/73; TEMP 98.6; O2SAT 91
[2024-12-21] MEDS: RAMELTEON 8 MG TAB (ROZEREM) PO PRN (21:37)
[2024-12-21] MEDS: ACETAMINOPHEN 325 MG TAB PO PRN (21:38)
[2024-12-22] VITALS (10 sets, daily range): BP systolic 115–155; BP diastolic 49–78; TEMP 97.2–98.2; O2SAT 91–96
[2024-12-22] MEDS: NYSTATIN 100,000 UNITS/GM TOPICAL PWD 15GM TOP SCH (00:02)
[2024-12-22 06:15] LABS: HEMATOCRIT 44.6 % (36.0-47.0); HEMOGLOBIN 14.2 g/dl (12.0-15.5); MEAN CORPUSCULAR HEMOGLOBIN 28.3 pg (27.0-33.0); MEAN CORPUSCULAR HGB CONC 31.8 g/dl (32.0-36.5); PLATELET COUNT, AUTOMATED 161 10^3/uL (150-450); RED BLOOD COUNT 5.01 10^6/uL (4.00-5.40); WHITE BLOOD COUNT 7.5 10^3/uL (4.0-10.0)
[2024-12-22 06:24] LABS: INR 1.87; PROTHROMBIN TIME 21.7 SECONDS (12.5-14.5)
[2024-12-22 06:50] LABS: BLOOD UREA NITROGEN 11 MG/DL (9-23); CARBON DIOXIDE LEVEL 27 MMOL/L (20-31); CHLORIDE LEVEL 102 MMOL/L (98-107); CREATININE FOR GFR 0.79 MG/DL (0.55-1.30); GLOMERULAR FILTRATION RATE > 60.0 (>45); GLUCOSE, FASTING 244 MG/DL (74-106); MAGNESIUM LEVEL 2.1 MG/DL (1.8-2.4); POTASSIUM SERUM 3.7 MMOL/L (3.5-5.1); SODIUM LEVEL 141 MMOL/L (136-145)
[2024-12-22] MEDS ORDERED: LIDOCAINE 1% MDV 20ML VIAL As Ordered ONE (12:09)
[2024-12-22] MEDS: LanTUS (INSULIN GLARGINE INJ) 1 UNITS/0.01 ML SC SCH (21:14)
[2024-12-23] VITALS (9 sets, daily range): BP systolic 114–141; BP diastolic 57–78; TEMP 96.8–97.7; O2SAT 90–96
[2024-12-23 05:41] LABS: HEMATOCRIT 44.2 % (36.0-47.0); MEAN CORPUSCULAR HEMOGLOBIN 27.7 pg (27.0-33.0); MEAN CORPUSCULAR HGB CONC 31.7 g/dl (32.0-36.5); MEAN CORPUSCULAR VOLUME 87.5 fl (80.0-96.0); PLATELET COUNT, AUTOMATED 181 10^3/uL (150-450); RED BLOOD COUNT 5.05 10^6/uL (4.00-5.40); WHITE BLOOD COUNT 7.3 10^3/uL (4.0-10.0)
[2024-12-23 06:07] LABS: BLOOD UREA NITROGEN 13 MG/DL (9-23); CALCIUM LEVEL 10.4 MG/DL (8.3-10.6); CARBON DIOXIDE LEVEL 27 MMOL/L (20-31); CHLORIDE LEVEL 101 MMOL/L (98-107); CREATININE FOR GFR 0.65 MG/DL (0.55-1.30); GLOMERULAR FILTRATION RATE > 60.0 (>45); GLUCOSE, FASTING 304 MG/DL (74-106); MAGNESIUM LEVEL 2.1 MG/DL (1.8-2.4); POTASSIUM SERUM 3.9 MMOL/L (3.5-5.1); SODIUM LEVEL 138 MMOL/L (136-145)
[2024-12-23 06:50] LABS: INR 1.97; PROTHROMBIN TIME 22.6 SECONDS (12.5-14.5)
[2024-12-23] MEDS: LanTUS (INSULIN GLARGINE INJ) 1 UNITS/0.01 ML SC ONE (14:10)
[2024-12-23 14:58] LABS: HEMOGLOBIN A1c 7.5 % (4.0-6.0)
[2024-12-23] MEDS: FUROSEMIDE 100MG/10ML VIAL IV ONE (17:58)
[2024-12-23] MEDS: METOPROLOL TART 50 MG TAB PO SCH (20:42)
[2024-12-23] MEDS: LanTUS (INSULIN GLARGINE INJ) 1 UNITS/0.01 ML SC SCH (21:28)
[2024-12-23] MEDS: FUROSEMIDE 100MG/10ML VIAL IV SCH (21:29)
[2024-12-23 22:19] LABS: BLOOD UREA NITROGEN 15 MG/DL (9-23); CALCIUM LEVEL 9.4 MG/DL (8.3-10.6); CARBON DIOXIDE LEVEL 25 MMOL/L (20-31); CHLORIDE LEVEL 100 MMOL/L (98-107); CREATININE FOR GFR 0.69 MG/DL (0.55-1.30); GLOMERULAR FILTRATION RATE > 60.0 (>45); GLUCOSE, FASTING 382 MG/DL (74-106); MAGNESIUM LEVEL 1.8 MG/DL (1.8-2.4); POTASSIUM SERUM 3.9 MMOL/L (3.5-5.1); SODIUM LEVEL 134 MMOL/L (136-145)
[2024-12-23] MEDS: INSULIN LISPRO (NovoLOG) PER UNIT SC SCH (22:30)
[2024-12-24] VITALS: BP 139/74; TEMP 97; O2SAT 89
[2024-12-24 04:36] VITALS: BP 123/68; TEMP 96.8; O2SAT 96
[2024-12-24 05:40] LABS: HEMATOCRIT 44.7 % (36.0-47.0); HEMOGLOBIN 14.2 g/dl (12.0-15.5); MEAN CORPUSCULAR HEMOGLOBIN 28.2 pg (27.0-33.0); MEAN CORPUSCULAR HGB CONC 31.8 g/dl (32.0-36.5); MEAN CORPUSCULAR VOLUME 88.7 fl (80.0-96.0); PLATELET COUNT, AUTOMATED 156 10^3/uL (150-450); RED BLOOD COUNT 5.04 10^6/uL (4.00-5.40); WHITE BLOOD COUNT 6.7 10^3/uL (4.0-10.0)
[2024-12-24 05:50] LABS: INR 2.04; PROTHROMBIN TIME 23.2 SECONDS (12.5-14.5)
[2024-12-24 06:17] LABS: BLOOD UREA NITROGEN 15 MG/DL (9-23); CALCIUM LEVEL 9.4 MG/DL (8.3-10.6); CARBON DIOXIDE LEVEL 28 MMOL/L (20-31); CHLORIDE LEVEL 99 MMOL/L (98-107); CREATININE FOR GFR 0.62 MG/DL (0.55-1.30); GLOMERULAR FILTRATION RATE > 60.0 (>45); GLUCOSE, FASTING 332 MG/DL (74-106); MAGNESIUM LEVEL 2.2 MG/DL (1.8-2.4); POTASSIUM SERUM 4.2 MMOL/L (3.5-5.1); SODIUM LEVEL 136 MMOL/L (136-145)
[2024-12-24 08:04] VITALS: BP 132/76
[2024-12-24 08:46] VITALS: O2SAT 94
[2024-12-24] MEDS ORDERED: BUME2TAB3 PO (09:10)
[2024-12-24] MEDS ORDERED: POTA-136 PO (09:10)
[2024-12-24] MEDS ORDERED: CEPH500C PO (09:10)
[2024-12-24] MEDS ORDERED: LOPR1TAB6 PO (09:10)
[2024-12-24] MEDS ORDERED: METO25TA PO (09:10)
[2024-12-24] MEDS ORDERED: PRED20TA PO (09:33)
[2024-12-24] MEDS ORDERED: IPRA0.00 INH (09:33)
[2024-12-24] MEDS ORDERED: METF-877 PO (09:36)
[2024-12-24] MEDS ORDERED: SITA50TAB PO (09:36)
[2024-12-24] MEDS: LanTUS (INSULIN GLARGINE INJ) 1 UNITS/0.01 ML SC SCH (10:30)
[2024-12-24 12:00] VITALS: BP 149/86; TEMP 97.2; O2SAT 92
[2024-12-24] MEDS ORDERED: ALCOPAD25 TOP (14:55)
[2024-12-24] MEDS ORDERED: LANC30MI XX (14:55)
[2024-12-24] MEDS ORDERED: GLUC1TES2 XX (14:55)
[2024-12-24] MEDS ORDERED: BLOOKIT21 XX (14:55)
== END 2024-12-24 14:18 | disposition home health service (06) | DRG 291 ==
LOC: M ED 10:06 → EDBD 10:06 → M ED INP 17:47 → M MSPAV 21:36
PROVIDERS: ADMIT Student in an Organized Health Care Education/Training Program; ATTEND Student in an Organized Health Care Education/Training Program
PROC: B246ZZZ Ultrasonography of Right and Left Heart (ICD-10-PCS; 2024-12-21)
PROC: 0H9T3ZX Drainage of Right Breast, Percutaneous Approach, Diagnostic (ICD-10-PCS; principal; 2024-12-22 12:15)
DX: I11.0 Hypertensive heart disease with heart failure (principal); I50.23 Acute on chronic systolic (congestive) heart failure; J96.21 Acute and chronic respiratory failure with hypoxia; J44.9 Chronic obstructive pulmonary disease, unspecified; I25.10 Atherosclerotic heart disease of native coronary artery without angina pectoris; I48.0 Paroxysmal atrial fibrillation; G47.33 Obstructive sleep apnea (adult) (pediatric); D47.2 Monoclonal gammopathy; I25.2 Old myocardial infarction; M19.90 Unspecified osteoarthritis, unspecified site; R32 Unspecified urinary incontinence; E87.6 Hypokalemia; E11.42 Type 2 diabetes mellitus with diabetic polyneuropathy; N61.1 Abscess of the breast and nipple; I27.20 Pulmonary hypertension, unspecified; I34.0 Nonrheumatic mitral (valve) insufficiency; R91.1 Solitary pulmonary nodule; K76.0 Fatty (change of) liver, not elsewhere classified; G89.29 Other chronic pain; E78.5 Hyperlipidemia, unspecified; Z99.81 Dependence on supplemental oxygen; Z95.2 Presence of prosthetic heart valve; Z87.891 Personal history of nicotine dependence; Z79.82 Long term (current) use of aspirin; Z79.01 Long term (current) use of anticoagulants; Z79.84 Long term (current) use of oral hypoglycemic drugs; Z79.899 Other long term (current) drug therapy

== ENCOUNTER → 2025-01-06 | Outpatient (REF) | payer OTHER ==
[~2025-01-06] MED LIST changes: +ALCOPAD25 TOP; +BLOOKIT21 XX; +CEPH500C PO; +GLUC1TES2 XX; +IPRA0.00 INH; +LANC30MI XX; +METF-877 PO; +POTA-136 PO; +SITA50TAB PO
== END ==
LOC: M LAB REF 17:20
PROVIDERS: ATTEND Internal Medicine
DX: K21.9 Gastro-esophageal reflux disease without esophagitis (principal); R13.10 Dysphagia, unspecified; R10.9 Unspecified abdominal pain; K76.0 Fatty (change of) liver, not elsewhere classified; R19.7 Diarrhea, unspecified; K44.9 Diaphragmatic hernia without obstruction or gangrene; K80.20 Calculus of gallbladder without cholecystitis without obstruction

== ENCOUNTER → 2025-01-11 | Outpatient (CLI) | payer OTHER ==
[2025-01-11 14:05] LABS: BASO # 0.1 10^3/uL (0.0-0.2); BASO % 0.9 % (0.0-1.0); EOS # 0.2 10^3/uL (0.0-0.5); EOS % 1.8 % (0.0-3.0); HEMATOCRIT 47.3 % (36.0-47.0); HEMOGLOBIN 14.9 g/dl (12.0-15.5); LYMPH % 17.9 % (24.0-44.0); MEAN CORPUSCULAR HEMOGLOBIN 28.2 pg (27.0-33.0); MEAN CORPUSCULAR HGB CONC 31.5 g/dl (32.0-36.5); MEAN CORPUSCULAR VOLUME 89.6 fl (80.0-96.0); MONO # 1.2 10^3/uL (0.0-0.8); MONO % 10.8 % (2.0-8.0); NEUTROPHILS # 7.7 10^3/uL (1.5-8.5); NEUTROPHILS % 67.9 % (36.0-66.0); PLATELET COUNT, AUTOMATED 184 10^3/uL (150-450); RED BLOOD COUNT 5.28 10^6/uL (4.00-5.40); WHITE BLOOD COUNT 11.4 10^3/uL (4.0-10.0)
[2025-01-11 14:28] LABS: ALBUMIN 4.2 G/DL (3.2-5.2); BILIRUBIN,TOTAL 0.7 MG/DL (0.3-1.2); CALCIUM LEVEL 11.2 MG/DL (8.3-10.6); CREATININE FOR GFR 0.84 MG/DL (0.55-1.30); POTASSIUM SERUM 3.9 MMOL/L (3.5-5.1); TOTAL PROTEIN 8.4 G/DL (5.7-8.2)
== END ==
LOC: M PLALAB 09:37
PROVIDERS: ATTEND Internal Medicine Cardiovascular Disease
DX: I50.32 Chronic diastolic (congestive) heart failure (principal)

== ENCOUNTER 2025-04-04 16:25 | Emergency (ER) | payer MEDICARE, OTHER ==
[~2025-04-04] VITALS: Ht 160 cm; Wt 109.1 kg
[2025-04-04] MEDS ORDERED: TRAM50TA2 PO (21:36)
[2025-04-04] MEDS: traMADol 50 MG TAB PO ONE (21:48)
[2025-04-04 21:53] VITALS: BP 143/66; TEMP 97.7; O2SAT 96
== END 2025-04-04 21:56 | disposition home or self-care (01) ==
LOC: M ED 16:25
DX: S92.355A Nondisplaced fracture of fifth metatarsal bone, left foot, initial encounter for closed fracture (principal); M85.872 Other specified disorders of bone density and structure, left ankle and foot; M19.072 Primary osteoarthritis, left ankle and foot; X58.XXXA Exposure to other specified factors, initial encounter; Y92.512 Supermarket, store or market as the place of occurrence of the external cause; Y93.89 Activity, other specified; Y99.9 Unspecified external cause status; I48.91 Unspecified atrial fibrillation; I50.9 Heart failure, unspecified; E11.9 Type 2 diabetes mellitus without complications; I25.2 Old myocardial infarction; J45.909 Unspecified asthma, uncomplicated; K21.9 Gastro-esophageal reflux disease without esophagitis; Z95.5 Presence of coronary angioplasty implant and graft; Z95.4 Presence of other heart-valve replacement; Z79.01 Long term (current) use of anticoagulants; Z79.82 Long term (current) use of aspirin; Z79.899 Other long term (current) drug therapy; Z79.84 Long term (current) use of oral hypoglycemic drugs

== ENCOUNTER 2025-04-06 18:42 | Emergency (ER) | payer MEDICARE, OTHER ==
[~2025-04-06] VITALS: Ht 160 cm; Wt 108.6 kg
[2025-04-06 19:37] LABS: BASO # 0.1 10^3/uL (0.0-0.2); BASO % 0.5 % (0.0-1.0); EOS # 0.1 10^3/uL (0.0-0.5); EOS % 0.8 % (0.0-3.0); LYMPH # 2.0 10^3/uL (1.5-5.0); LYMPH % 13.7 % (24.0-44.0); MONO # 1.1 10^3/uL (0.0-0.8); MONO % 7.5 % (2.0-8.0); NEUTROPHILS # 11.3 10^3/uL (1.5-8.5); NEUTROPHILS % 77.1 % (36.0-66.0); PLATELET COUNT, AUTOMATED 197 10^3/uL (150-450)
[2025-04-06 20:01] LABS: ALT/SGPT 64.0 U/L (7.0-40); AST/SGOT 65.0 U/L (<34); CALCIUM LEVEL 10.4 MG/DL (8.3-10.6); CARBON DIOXIDE LEVEL 33.0 MMOL/L (20-31); CHLORIDE LEVEL 80.0 MMOL/L (98-107); CREATININE FOR GFR 1.17 MG/DL (0.55-1.30); GLOMERULAR FILTRATION RATE 52.4 (>45); POTASSIUM SERUM 3.1 MMOL/L (3.5-5.1); SODIUM LEVEL 129.0 MMOL/L (136-145)
[2025-04-06 23:13] LABS: VENOUS BASE EXCESS 7.0 (-2.0-2.0); VENOUS HCO3 32.3 MMOL/L (23.0-27.0); VENOUS O2 SATURATION 64.5 % (60.0-80.0); VENOUS PARTIAL PRESSURE CO2 48.2 mmHg (38.0-50.0); VENOUS PARTIAL PRESSURE O2 36.8 mmHg (30.0-50.0); VENOUS PH 7.444 UNITS (7.330-7.430); VENOUS STANDARD HCO3 29.9 MMOL/L; VENOUS TOTAL CO2 33.8 MMOL/L (24.0-28.0)
[2025-04-06 23:13] LABS: KETONE, URINE AUTO RFX NEGATIVE (NEGATIVE); RBC, URINE AUTO RFX 2 /HPF (0-3); SQUAM EPITHELIAL CELL UR AURFX 1 /HPF (0-6)
[2025-04-06 23:23] LABS: LEUKOCYTE ESTERASE UR AUTO RFX 2+ (NEGATIVE); NITRITE, URINE AUTO RFX POSITIVE (NEGATIVE); WBC, URINE AUTO RFX 54 /HPF (0-3)
[2025-04-06 23:28] LABS: ESTIMATED AVERAGE GLUCOSE 151.0 MG/DL (60-110)
[2025-04-06 23:45] LABS: ACETONE/KETONE 0.24 MMOL/L (0.02-0.27)
[2025-04-06] MEDS: POTASSIUM CHLORIDE 10% LIQ 20MEQ/15ML UDC PO ONE (23:46)
[2025-04-06 23:49] LABS: MAGNESIUM LEVEL 1.0 MG/DL (1.8-2.4)
[2025-04-06 23:53] LABS: OSMOLALITY SERUM 286.0 MOSM/KG (280-301)
[2025-04-07] MEDS: cefTRIAXone SOD 1 GM in DEXTROSE 5% (D5W) ADV/MINI-BAG 50 ML IV ONE (00:34)
[2025-04-07] MEDS: MAG SULF 1GM/100ML (MAG RUN) 1 GM in IV 1 EA IV ONE ×2 (00:34→01:00)
[2025-04-07] MEDS ORDERED: CIPR250T26 PO (01:36)
[2025-04-07] MEDS ORDERED: POTA-141 PO (01:36)
[2025-04-07 02:30] VITALS: BP 127/65; TEMP 97.3; O2SAT 94
== END 2025-04-07 02:30 | disposition home or self-care (01) ==
LOC: M ED 18:42
DX: E87.6 Hypokalemia (principal); E83.42 Hypomagnesemia; N39.0 Urinary tract infection, site not specified; I48.91 Unspecified atrial fibrillation; I25.10 Atherosclerotic heart disease of native coronary artery without angina pectoris; I50.9 Heart failure, unspecified; E11.9 Type 2 diabetes mellitus without complications; J44.9 Chronic obstructive pulmonary disease, unspecified; Z99.81 Dependence on supplemental oxygen; Z95.2 Presence of prosthetic heart valve; Z79.01 Long term (current) use of anticoagulants; Z79.4 Long term (current) use of insulin; Z79.82 Long term (current) use of aspirin; Z79.899 Other long term (current) drug therapy
CPT/HCPCS: 71045; 80048; 80076; 81001; 82010; 82803; 83036; 83690; 83735; 83930; 85025; 87088; 87186; 93005; 94760; 96365; 96366; 96368; 99284; J0696; J3475

== ENCOUNTER 2025-04-09 10:26 | Emergency (ER) | payer MEDICARE, OTHER ==
[~2025-04-09] VITALS: Ht 160 cm; Wt 108.6 kg
[~2025-04-09 10:26] MED LIST changes: +CIPR250T26 PO; +POTA-141 PO
[2025-04-09] MEDS ORDERED: ELIQ5TAB PO (10:36)
[2025-04-09 12:03] LABS: ALT/SGPT 73.0 U/L (7.0-40); AST/SGOT 76.0 U/L (<34); CALCIUM LEVEL 10.0 MG/DL (8.3-10.6); CARBON DIOXIDE LEVEL 34.0 MMOL/L (20-31); CHLORIDE LEVEL 80.0 MMOL/L (98-107); CREATININE FOR GFR 1.25 MG/DL (0.55-1.30); GLOMERULAR FILTRATION RATE 48.4 (>45); MAGNESIUM LEVEL 1.6 MG/DL (1.8-2.4); POTASSIUM SERUM 3.1 MMOL/L (3.5-5.1); SODIUM LEVEL 129.0 MMOL/L (136-145)
[2025-04-09] MEDS: MAG SULF 1GM/100ML (MAG RUN) 1 GM in IV 1 EA IV ONE ×2 (12:20→13:16)
[2025-04-09] MEDS: POTASSIUM CHLORIDE 10MEQ SR TABLET PO ONE (12:30)
[2025-04-09 12:31] LABS: KETONE, URINE AUTO RFX NEGATIVE (NEGATIVE); LEUKOCYTE ESTERASE UR AUTO RFX NEGATIVE (NEGATIVE); MUCUS, URINE RFX SMALL (NEGATIVE); NITRITE, URINE AUTO RFX NEGATIVE (NEGATIVE); RBC, URINE AUTO RFX 0 /HPF (0-3); SQUAM EPITHELIAL CELL UR AURFX 1 /HPF (0-6); WBC, URINE AUTO RFX 1 /HPF (0-3); YEAST LIKE CELL URINE AUTO RFX SMALL
[2025-04-09 13:58] LABS: BASO # 0.1 10^3/uL (0.0-0.2); BASO % 0.4 % (0.0-1.0); EOS # 0.1 10^3/uL (0.0-0.5); EOS % 0.8 % (0.0-3.0); LYMPH # 1.6 10^3/uL (1.5-5.0); LYMPH % 13.4 % (24.0-44.0); MONO # 1.2 10^3/uL (0.0-0.8); MONO % 9.5 % (2.0-8.0); NEUTROPHILS # 9.2 10^3/uL (1.5-8.5); NEUTROPHILS % 75.3 % (36.0-66.0); PLATELET COUNT, AUTOMATED 210 10^3/uL (150-450)
[2025-04-09 14:41] VITALS: BP 116/60; TEMP 97.4; O2SAT 95
== END 2025-04-09 14:42 | disposition home or self-care (01) ==
LOC: M ED 10:26
DX: E83.42 Hypomagnesemia (principal); E87.6 Hypokalemia; I44.7 Left bundle-branch block, unspecified; I45.81 Long QT syndrome; I25.2 Old myocardial infarction; J44.9 Chronic obstructive pulmonary disease, unspecified; E11.9 Type 2 diabetes mellitus without complications; Z86.79 Personal history of other diseases of the circulatory system; Z79.52 Long term (current) use of systemic steroids; Z79.01 Long term (current) use of anticoagulants; Z79.82 Long term (current) use of aspirin; Z79.02 Long term (current) use of antithrombotics/antiplatelets; Z79.4 Long term (current) use of insulin; Z79.899 Other long term (current) drug therapy
CPT/HCPCS: 80053; 81001; 83735; 85025; 93005; 96365; 99284; J3475

== ENCOUNTER → 2025-04-15 | Outpatient (CLI) | payer OTHER ==
[~2025-04-15] MED LIST changes: +ELIQ5TAB PO
== END ==
LOC: M RAD 03-15 08:47
PROVIDERS: ATTEND Internal Medicine Gastroenterology
DX: R10.9 Unspecified abdominal pain (principal); K80.20 Calculus of gallbladder without cholecystitis without obstruction; K44.9 Diaphragmatic hernia without obstruction or gangrene; K21.9 Gastro-esophageal reflux disease without esophagitis; K76.0 Fatty (change of) liver, not elsewhere classified; R19.7 Diarrhea, unspecified; Z12.11 Encounter for screening for malignant neoplasm of colon

== ENCOUNTER → 2025-05-20 | Outpatient (CLI) | payer MEDICARE, OTHER | LOC: M SOG 06:49 | PROVIDERS: ATTEND Physician Assistant | DX: S92.352A Displaced fracture of fifth metatarsal bone, left foot, initial encounter for closed fracture (principal); W18.30XA Fall on same level, unspecified, initial encounter; Y92.009 Unspecified place in unspecified non-institutional (private) residence as the place of occurrence of the external cause ==

== ENCOUNTER → 2025-06-24 | Outpatient (CLI) | payer MEDICARE, OTHER ==
[2025-06-24 16:10] LABS: ALT/SGPT 62.0 U/L (7.0-40); AST/SGOT 53.0 U/L (<34); CALCIUM LEVEL 10.2 MG/DL (8.3-10.6); CARBON DIOXIDE LEVEL 34.0 MMOL/L (20-31); CHLORIDE LEVEL 97.0 MMOL/L (98-107); CREATININE FOR GFR 0.83 MG/DL (0.55-1.30); GLOMERULAR FILTRATION RATE 78.7 (>45); POTASSIUM SERUM 4.2 MMOL/L (3.5-5.1); SODIUM LEVEL 139.0 MMOL/L (136-145)
== END ==
LOC: M PLALAB 09:48
PROVIDERS: ATTEND Student in an Organized Health Care Education/Training Program
DX: K21.9 Gastro-esophageal reflux disease without esophagitis (principal); K76.0 Fatty (change of) liver, not elsewhere classified; K86.81 Exocrine pancreatic insufficiency; E66.01 Morbid (severe) obesity due to excess calories; R10.9 Unspecified abdominal pain

== ENCOUNTER → 2025-07-01 | Outpatient (CLI) | payer MEDICARE, OTHER ==
[~2025-07-01] MED LIST changes: +ISOVUE-370 76% 100 ML VIAL As Ordered ONE
== END ==
LOC: M RAD 08:01
PROVIDERS: ATTEND Student in an Organized Health Care Education/Training Program
DX: I77.4 Celiac artery compression syndrome (principal); I77.1 Stricture of artery; I70.0 Atherosclerosis of aorta; I70.8 Atherosclerosis of other arteries; K86.81 Exocrine pancreatic insufficiency
CPT/HCPCS: 74174; Q9967